=== PATIENT | female | born 1935 | race Caucasian/White ===

== ENCOUNTER 2017-08-10 22:11 | Inpatient (IN) | payer MEDICARE ==
[~2017-08-10] VITALS: Ht 172.7 cm; Wt 89.8 kg
[~2017-08-10 22:11] MED LIST: AMITRIPTYLINE H25 MG PO; BACTRIM DS TAB1 EACH PO; ELAVIL PO; ELIQUIS PO; GLUCOPHAGE500 MG PO; LASIX40 MG PO; METOPROLOL SUCC50 MG PO; MONTELUKAST SOD10 MG PO; NEXIUM20 MG PO; NEXIUM40 MG PO; POTASSIUM CHLO10 ME1 PO; SEREVENT DISKU50 MCG INH; SINGULAIR10 MG PO; SINGULAIR4 MG PO; VERELAN240 MG PO; elavil PO
--- OUTSIDE RECORDS SUMMARY | 2017-08-10 22:13 | XMS REPORT | Clinical Summary ---
Author Author [facility] Organization [facility] Address Unknown Phone Unavailable Care Team Providers [employer] Name Role Phone Mera Ward MD PCP Allergies Active Allergy Reactions Severity Noted Date Comments Codeine Other (See Comments) 07/24/2016 Dizziness .,"was hospitalized after taking codeine" Current Medications Prescription Sig. Disp. Refills Start End Date Status Date amitriptyline (ELAVIL) 25 Take 25 mg by mouth Active MG tablet daily. apixaban (ELIQUIS) 5 mg Take 5 mg by mouth 2 Active tablet (two) times a day. esomeprazole (NexIUM) 40 Take 40 mg by mouth as Active MG capsule needed. furosemide (LASIX) 40 mg Take 40 mg by mouth daily Active tablet as needed (edema). montelukast (SINGULAIR) Take 10 mg by mouth Active 10 mg tablet nightly. potassium chloride Take 20 mEq by mouth as Active (K-DUR,KLOR-CON) 10 MEQ needed (with lasix). CR tablet salmeterol (SEREVENT Inhale 2 puffs daily as Active DISKUS) 50 mcg/dose needed. diskus inhaler metoprolol tartrate Take 1 tablet (25 mg 180 tablet 3 11/29/19 Active (LOPRESSOR) 25 mg tablet total) by mouth 2 (two) 17 times a day. ELIQUIS 5 mg tablet TAKE 1 TABLET BY MOUTH 180 tablet 3 04/04/2002/04 Discontin TWICE DAILY 16 17 ued PROAIR HFA 90 INL 2 PFS PO UTD 0 07/11/19 09/24/19 Discontin mcg/actuation inhaler 17 17 ued amitriptyline (ELAVIL) 25 TK 1 T PO BID 2 07/11/19 09/24/19 Discontin MG tablet 17 17 ued esomeprazole (NexIUM) 40 TK 1 C PO QD 0 07/11/19 09/24/19 Discontin MG capsule 17 17 ued furosemide (LASIX) 40 mg TK 1 T PO QD 0 07/18/19 09/24/19 Discontin tablet 17 17 ued metoprolol tartrate TK 1 T PO Q 12 H 0 07/18/19 09/24/19 Discontin (LOPRESSOR) 50 mg tablet 17 17 ued montelukast (SINGULAIR) TK 1 T PO QPM 0 07/11/19 09/24/19 Discontin 10 mg tablet 17 17 ued potassium chloride TK 2 CS PO QD 0 07/18/19 09/24/19 Discontin (MICRO-K) 10 MEQ CR 17 17 ued capsule VERAPAMIL HCL (VERAPAMIL Take 50 mg by mouth. 09/24/19 Discontin ORAL) Patient has not started 17 ued taking the new dosage because she was told not to cut the 240 mg in half. She did not receive a Rx for the 50 mg. albuterol (PROAIR Inhale 2 puffs every 6 11/09/19 Discontin HFA,PROVENTIL (six) hours as needed for 17 ued HFA,VENTOLIN HFA) 90 wheezing. mcg/actuation inhaler verapamil (CALAN) 120 MG Take 120 mg by mouth 09/27/19 Discontin tablet daily. 17 ued cholecalciferol, vitamin Take 50,000 Units by 11/03/19 Discontin D3, (DECARA) 50,000 unit mouth every 7 days. 17 ued capsule Thursday amIODarone (PACERONE) 400 Take 1 tablet (400 mg 30 tablet 0 09/27/19 10/27/19 MG tablet total) by mouth daily for 17 17 30 days. cefpodoxime (VANTIN) 200 Take 1 tablet (200 mg 20 tablet 0 09/27/19 10/07/19 MG tablet total) by mouth 2 (two) 17 17 times a day for 10 days. metoprolol tartrate Take 1 tablet (25 mg 60 tablet 0 09/27/19 (LOPRESSOR) 25 mg tablet total) by mouth 2 (two) 17 17 times a day for 30 days. verapamil (CALAN) 120 MG Take 120 mg by mouth 11/09/19 Discontin tablet daily. 17 ued metoprolol tartrate Take 25 mg by mouth 2 11/29/19 Discontin (LOPRESSOR) 25 mg tablet (two) times a day. 17 ued amIODarone (PACERONE) 200 Take 1 tablet (200 mg 60 tablet 1 11/09/19 12/09/19 MG tablet total) by mouth every 12 17 17 (twelve) hours for 30 days. benzonatate (TESSALON) Take 1 capsule (100 mg 20 capsule 0 11/09/19 12/09/19 100 MG capsule total) by mouth 3 (three) 17 17 times a day as needed for cough for up to 30 days. guaiFENesin (MUCINEX) 600 Take 2 tablets (1,200 mg 120 tablet 0 12/09/19 mg tablet extended total) by mouth 2 (two) 17 17 release 12hr times a day for 30 days. doxycycline (VIBRAMYCIN) Take 1 capsule (100 mg 8 capsule 0 11/09/19 11/13/19 100 MG capsule total) by mouth 2 (two) 17 17 times a day with meals for 4 days. predniSONE (DELTASONE) 10 Take 4 tabs daily x 3 27 tablet 0 11/09/19 11/17/19 mg tablet days, then 3 tabs daily x 17 17 3 days, then 2 tabs daily x 3 days, then stop. albuterol (PROAIR Inhale 2 puffs every 6 18 g 11 11/09/19 12/09/19 HFA,PROVENTIL (six) hours as needed for 17 17 HFA,VENTOLIN HFA) 90 wheezing for up to 30 mcg/actuation inhaler days. Active Problems Problem Noted Date Pneumonia 11/02/2016 Afib 11/02/2016 History of lymphoma 11/02/2016 GERD (gastroesophageal reflux disease) 11/02/2016 Anemia of chronic disease 11/02/2016 Fever 11/02/2016 Chronic kidney disease, stage III (moderate) 11/02/2016 Chronic systolic heart failure 11/02/2016 Pneumonia of both lungs due to infectious organism 09/23/2016 Encounters Date Type Specialty Care Team Description 11/28/2016 Orders Only Cardiology Sonido Moe MA 11/08/2016 Patient Quality Sofía Padilla RN Outreach 11/02/2016 [facility] Obstetrics and Gynecology Grant Montejo Pneumonia of both lower - Encounter MD Jon lobes due to infectious 11/08/2016 Magaly Villalobos MD organism (Primary Dx) 09/24/2016 Anesthesia Procedural Cardiology Robert Villalobos Event 09/24/2016 Procedure Pass Procedural Cardiology 09/22/2016 [facility] Cardiology CaballeroRoberto, Pneumonia of both lungs - Encounter DO due to infectious 09/26/2016 Charlotte Villalobos MD organism, unspecified part of lung (Primary Dx); Sepsis, due to unspecified organism; Atrial fibrillation with RVR; Mild intermittent asthma with acute exacerbation after 08/09/2016 Family History Medical History Relation Name Comments Heart disease Brother Hypertension Brother Diabetes Mother Heart disease Mother Hypertension Mother Heart disease Sister Hypertension Sister Relation Name Status Comments Brother Mother Sister Social History Tobacco Use Types Packs/Day Years Used Date Never Smoker Smokeless Tobacco: Never Used Tobacco Cessation: Counseling Given: No Alcohol Use Drinks/Week oz/Week Comments No Sex Assigned at Date Recorded Not on file Last Filed Vital Signs Vital Sign Reading Time Taken Blood Pressure 153/68 11/08/2016 3:53 PM CDT Pulse 55 11/08/2016 3:53 PM CDT Temperature 36 C (96.8 F) 11/08/2016 3:53 PM CDT Respiratory Rate 18 11/08/2016 3:53 PM CDT Oxygen Saturation 96% 11/08/2016 3:53 PM CDT Inhaled Oxygen - - Concentration Weight 83.6 kg (184 lb 6.4 oz) 09/26/2016 4:05 AM CDT Height 167.6 cm (5' 6") 11/02/2016 3:43 PM CDT Body Mass Index 30.69 09/26/2016 4:05 AM CDT Plan of Treatment Health Maintenance Due Date Last Done Comments ZOSTER VACCINE 1997 PNEUMOCOCCAL 2002 POLYSACCHARIDE VACCINE AGE 65 AND OVER PNEUMOCOCCAL-13 2002 INFLUENZA VACCINE 12/16/2016 Procedures Procedure Name Priority Date/Time Associated Diagnosis Comments ECHOCARDIOGRAM 2D Routine 11/06/2016 Results for this COMPLETE W MMODE SPECTRAL 10:31 AM CDT procedure are in the COLOR [facility]ER (01310) results section. ECHOCARDIOGRAM 2D Routine 09/23/2016 Results for this COMPLETE W MMODE SPECTRAL 11:24 PM CDT procedure are in the [facility]ER (63159) results section. [place] [facility], E/M Routine 09/23/2016 Results for this 30-74 MINUTES 5:41 AM CDT procedure are in the results section. after 08/09/2016 Results * POC glucose (11/08/2016 12:25 PM) Only the most recent of 9 results within the time period is included. Component Value Ref Range POC glucose 254 (H) 65 - 99 mg/dL Comment: [facility] Notified RN Meter ID: [id number] Screen Maker: Wayne Jason Specimen Performing Laboratory [facility] DEPARTMENT OF PATHOLOGY AND GENOMIC MEDICINE [address] [place], [place] [id number] * Estimated GFR (11/08/2016 4:00 AM) Only the most recent of 12 results within the time period is included. Component Value Ref Range GFR Non Af Amer 36 (A) mL/min/1.73 m2 GFR Af Amer 44 (A) mL/min/1.73 m2 Comment: Chronic kidney disease: <60 mL/min/1.73m2 Kidney failure: <15 mL/min/1.73m2 The estimated GFR is calculated from the IDMS-traceable Modification of Diet in Renal Disease Equation. The accuracy of the calculation is poor when the creatinine is normal. Calculated values >90 mL/min/1.73m2 are not reported. This equation has not been validated in children (<18 years), women, the elderly (>70 years), or ethnic groups other than Caucasians and Americans. Specimen Performing Laboratory Plasma specimen [facility] DEPARTMENT OF PATHOLOGY AND GENOMIC MEDICINE [address] [place] [address] * Basic metabolic panel (11/08/2016 4:00 AM) Only the most recent of 9 results within the time period is included. Component Value Ref Range Sodium 137 135 - 148 mEq/L Potassium 4.8 3.5 - 5.0 mEq/L Chloride 95 (L) 98 - 112 mEq/L CO2 29 24 - 31 mEq/L Anion gap 13 7 - 15 mEq/L Comment: Starting from August , anion gap calculation no longer incorporates potassium. Please note the change. BUN 32 (H) 8 - 23 mg/dL Creatinine 1.4 (H) 0.5 - 0.9 mg/dL Glucose 223 (H) 65 - 99 mg/dL Calcium 8.5 (L) 8.8 - 10.2 mg/dL Specimen Performing Laboratory Plasma specimen [facility] DEPARTMENT OF PATHOLOGY AND [address] [address] * Phosphorus level (11/07/2016 4:25 AM) Only the most recent of 5 results within the time period is included. Component Value Ref Range Phosphorus 3.6 2.4 - 4.5 mg/dL Specimen Performing Laboratory Plasma specimen [facility] DEPARTMENT OF PATHOLOGY AND [address] [address] * B natriuretic peptide (11/07/2016 4:25 AM) Only the most recent of 5 results within the time period is included. Component Value Ref Range BNP 391 (H) 0 - 100 pg/mL Specimen Performing Laboratory Blood [facility] PATHOLOGY AND [address] [address] * Magnesium level (11/07/2016 4:25 AM) Only the most recent of 6 results within the time period is included. Component Value Ref Range Magnesium 1.9 1.6 - 2.4 mg/dL Specimen Performing Laboratory Plasma specimen [facility] PATHOLOGY AND [address] [address] * Hemoglobin A1c (11/07/2016 4:25 AM) Component Value Ref Range Hemoglobin A1C 6.6 (H) 4.0 - 5.6 % Comment: HbA1c cutoffs for diagnosing diabetes: 4.0% - 5.6%=normal 5.7% - 6.4%=increased risk for diabetes (prediabetes) >=6.5%=diabetes Goals for glycemic control (ADA 2016) < 7.0% Target for non adults with diabetes. More or less stringent targets may be appropriate for individual patients. <7.5% Target for Children and adolescents with type 1 diabetes. Specimen Performing Laboratory Blood [facility] PATHOLOGY AND [address] [address] * Hepatic function panel (11/07/2016 4:25 AM) Only the most recent of 2 results within the time period is included. Component Value Ref Range Albumin 2.7 (L) 3.5 - 5.0 g/dL Total bilirubin 0.3 0.0 - 1.2 mg/dL Bilirubin direct <0.2 0.0 - 0.3 mg/dL Alkaline phosphatase 69 35 - 104 U/L Protein 6.1 (L) 6.3 - 8.3 g/dL Comment: 4.6-7.0 g/dL 1 week 4.4-7.6 g/dL 7 months-1year 5.1-7.3 g/dL 1-2 years 5.6-7.5 g/dL >3 years 6.0-8.0 g/dL 18-150 6.3-8.3 g/dL ALT 36 5 - 50 U/L AST 48 (H) 10 - 35 U/L Specimen Performing Laboratory Plasma specimen [facility] DEPARTMENT OF PATHOLOGY AND GENOMIC MEDICINE [address] [place] [address] * XR Chest 1 Vw (11/06/2016 5:25 PM) Specimen Performing Laboratory [facility] [address] [place] [address] Narrative EXAMINATION:XR CHEST 1 VW CLINICAL HISTORY:Cough COMPARISON:11/02/2016 IMPRESSION: 1.The heart size is normal. 2.There is no evidence of pulmonary edema. There are no focal consolidations or effusions. 3.Regional skeletal structures are slightly osteopenic. 4.Status post cholecystectomy. Procedure Note Interface, Radiology Results Incoming - 11/06/2016 6:02 PM CDT EXAMINATION: XR CHEST 1 VW CLINICAL HISTORY: Cough COMPARISON: 11/02/2016 IMPRESSION: 1. The heart size is normal. 2. There is no evidence of pulmonary edema. There are no focal consolidations or effusions. 3. Regional skeletal structures are slightly osteopenic. 4. Status post cholecystectomy. * Echocardiogram complete w contrast and 3D if needed (11/06/2016 10:31 AM) Specimen Performing Laboratory [facility] [address] [place] [address] Narrative Echocardiography Report [address] [place] [address] Pat.Name:CATY FARMER Pat.ID:[id number] .Date: 11/06/2016 Refer.MD:MAGALY VILLALOOBS MD Exam Time: 9:47:00 AMStudy Type:Routine Echo Height:64.96in Weight:184lb BSA: 1.91 m2 DOBAge:[age]Y Sex: FEMALEBP: 138/65 Sonogrphr: BONILLA JARA, RDSHUN, STAN/Adelso Mcdowell MD Pat. Stat.:Inpatient Room:A635Zdxtc Status:Final Echo Event ID:[id number] Order ID:[id number] Reason for Study:HF; initial eval with symptoms Procedures:2D Echo, Colorflow Doppler, Intravenous Definity Contrast Race:C SUMMARY: LV function is normal. Estimated EF is 55-59%. Diastolic dysfunction Grade III (Severe): Impaired relaxation with restrictive LV filling pressures. Mild mitral regurgitation. Mild tricuspid regurgitation. Estimated PA systolic pressure is 49 mmHg, assuming a mean RAP of 5 mmHg. FINDINGS: LV: LV size is normal. LV function is normal. Overall wall motionis normal. EF=55%. RV: RV size is normal. RV function is normal. LA: LA volume is mildly enlarged. RA: RA size is normal. AO: Aortic root diameter is normal. LIU: No pericardial effusion and anterior fat pad is present. AV: No structural AV abnormalities noted. MV: Mild calcification of mitral leaflets. Mild mitral regurgitation. PV: No structural PV abnormalities noted. A trace of pulmonic regurgitation. TV: No structural TV abnormalities noted. Mild tricuspid regurgitation Paul: LV relaxation is impaired. Diastolic dysfunction Grade III (Severe):Impaired relaxation with restrictive LV filling pressures. Other:Estimated PA systolic pressure is 49 mmHg, assuming a mean RAPof 5 mmHg. MEASUREMENTS: 2D Parasternal Long [place] LVOT 2 cmLA Ds 3.6 cm LVIDd5.4 cmIndex 2.8 cm/m Ao An2 cm LVIDs3.9 cmAo Rtd 3.2 cm Index1.7 cm/m LV%fs 28.9 % LV Mass 149.7 g(87-129) IVSd 0.7 cmLVM Index 78.4 g/m2 LVPWd0.9 cmRWT 0.3 LV EF SinglePlane LV Ad 35.4 cm2(9.5-22.3) LV EF 55.4 %(55-75) FNKTX101.4 ml (59-136) Index66.2 ml/m HR54 bpm LV As 21.5 cm2(4-11.6) LV CO 3.8 l/min LVESV 56.4 mlLV CI 2 l/m/m2 LV SV 70 ml LA Sng Plane LA Area 22.9 cm2(8.8-23.4) LA Vol75.3 ml Index39.4 ml/m LA LngAx 5.6 cm RA Sng Plane RA Area 18.2 cm2(8.3-19.5) RA Vol52.6 ml Index27.5 ml/m RA LngAx 5.2 cm DOPPLER LVOT Stroke Vol LVOT 2 cmLVOT CO 3.4 l/min LVOT TVI19.2 cmLVOT CI 1.8 l/m/m2 LVOT Tm371 msecHR 56 bpm LVOT SV 60.3 ml MV PISA MV AliasVel 32 cm/sMV pkVel 547.6 cm/s MV PISA rad0.4 cmMV ERO 0.1 cm2 MV Flw32.2 cc/sMV RgVol 12.7 cc Signed 11/06/2016 03:44 PM David Prasad M.D. Procedure Note Interface, Radiology Results In - 11/06/2016 3:45 PM CDT Echocardiography Report [address] [place] [address] Pat.Name: CATY FARMER.ID: [id number] .Date: 11/06/2016 Refer.MD: MAGALY VILLALOBOS MD Exam Time: 9:47:00 AM Study Type:Routine Echo Height: 64.96in Weight: 184lb BSA: 1.91 m2 Age: 8 1935,81Y Sex: FEMALE BP: 138/65 Sonogrphr: WENDI QUINTEROS, RCS, RDCS, [facility]/Adelso Mcdowell MD Pat. Stat.:Inpatient Room: M632 Study Status:Final Echo Event ID:[id number] Order ID: [id number] Reason for Study:HF; initial eval with symptoms Procedures:2D Echo, Colorflow Doppler, Intravenous Definity Contrast Race: C SUMMARY: LV function is normal. Estimated EF is 55-59%. Diastolic dysfunction Grade III (Severe): Impaired relaxation with restrictive LV filling pressures. Mild mitral regurgitation. Mild tricuspid regurgitation. Estimated PA systolic pressure is 49 mmHg, assuming a mean RAP of 5 mmHg. FINDINGS: LV: LV size is normal. LV function is normal. Overall wall motion is normal. EF=55%. RV: RV size is normal. RV function is normal. LA: LA volume is mildly enlarged. RA: RA size is normal. AO: Aortic root diameter is normal. LIU: No pericardial effusion and anterior fat pad is present. AV: No structural AV abnormalities noted. MV: Mild calcification of mitral leaflets. Mild mitral regurgitation. PV: No structural PV abnormalities noted. A trace of pulmonic regurgitation. TV: No structural TV abnormalities noted. Mild tricuspid regurgitation Paul: LV relaxation is impaired. Diastolic dysfunction Grade III (Severe): Impaired relaxation with restrictive LV filling pressures. Other: Estimated PA systolic pressure is 49 mmHg, assuming a mean RAP of 5 mmHg. MEASUREMENTS: 2D Parasternal Long [place] LVOT 2 cm LA Ds 3.6 cm LVIDd 5.4 cm Index 2.8 cm/m Ao An 2 cm LVIDs 3.9 cm Ao Rtd 3.2 cm Index 1.7 cm/m LV%fs 28.9 % LV Mass 149.7 g (87-129) IVSd 0.7 cm LVM Index 78.4 g/m2 LVPWd 0.9 cm RWT 0.3 LV EF SinglePlane LV Ad 35.4 cm2 (9.5-22.3) LV EF 55.4 % (55-75) LVEDV 126.4 ml (59-136) Index 66.2 ml/m HR 54 bpm LV As 21.5 cm2 (4-11.6) LV CO 3.8 l/min LVESV 56.4 ml LV CI 2 l/m/m2 LV SV 70 ml LA Sng Plane LA Area 22.9 cm2 (8.8-23.4) LA Vol 75.3 ml Index 39.4 ml/m LA LngAx 5.6 cm RA Sng Plane RA Area 18.2 cm2 (8.3-19.5) RA Vol 52.6 ml Index 27.5 ml/m RA LngAx 5.2 cm DOPPLER LVOT Stroke Vol LVOT 2 cm LVOT CO 3.4 l/min LVOT TVI 19.2 cm LVOT CI 1.8 l/m/m2 LVOT Tm 371 msec HR 56 bpm LVOT SV 60.3 ml MV PISA MV AliasVel 32 cm/s MV pkVel 547.6 cm/s MV PISA rad 0.4 cm MV ERO 0.1 cm2 MV Flw 32.2 cc/s MV RgVol 12.7 cc Signed 11/06/2016 03:44 PM David Prasad M.D. * US Renal (11/05/2016 9:22 AM) Specimen Performing Laboratory [address] [address] Narrative EXAM: RENAL CLINICAL DATA:HYDRONEPHROSIS, does not need to drink water prior to exam COMPARISON: NONE. FINDINGS: 1.Right kidney is 9.7 x 4.5 x 3.5 cm. Renal cortex is 0.9 cm. No mass or hydronephrosis. Probable prominent extrarenal pelvis. 2.Left kidney is 10.6 x 4.8 x 4.6 cm. Renal cortex is 1 cm. No mass or hydronephrosis. Nephrolithiasis noted in the lower pole. 3.Bladder is unremarkable. IMPRESSION: 1. Renal ultrasound findings as above. [facility]-[id number] Procedure Note Hm Interface, Radiology Results Incoming - 11/05/2016 11:05 AM CDT EXAM: US RENAL CLINICAL DATA: HYDRONEPHROSIS, does not need to drink water prior to exam COMPARISON: NONE. FINDINGS: 1. Right kidney is 9.7 x 4.5 x 3.5 cm. Renal cortex is 0.9 cm. No mass or hydronephrosis. Probable prominent extrarenal pelvis. 2. Left kidney is 10.6 x 4.8 x 4.6 cm. Renal cortex is 1 cm. No mass or hydronephrosis. Nephrolithiasis noted in the lower pole. 3. Bladder is unremarkable. IMPRESSION: 1. Renal ultrasound findings as above. [facility]-[id number] * Angiotensin converting enzyme (11/05/2016 7:01 AM) Component Value Ref Range Angiotensin converting 44 9 - 67 U/L enzyme Comment: Performed by [facility], [address] [place] [id number] [email or web address] Harpal Grigsby MD - Lab. Director Specimen Performing Laboratory Serum [facility] [address] [place] [address] * Urinalysis screen and microscopy, with reflex to culture (11/05/2016 6:30 AM) Only the most recent of 2 results within the time period is included. Component Value Ref Range Specimen site Clean catch Color, UA Yellow Appearance, UA Clear Specific gravity, UA 1.025 1.001 - 1.035 pH, UA 5.0 5.0 - 8.5 Protein, UA Negative Negative Glucose, UA 3+ (A) Negative Ketones, UA Negative Negative Bilirubin, UA Negative Negative Blood, UA Negative Negative Nitrite, UA Negative Negative Urobilinogen, UA <2.0 <2.0 Leukocyte esterase, UA Negative Negative Epithelial cells, UA 1 /HPF WBC, UA <1 0 - 4 /HPF RBC, UA <1 0 - 2 /HPF Bacteria, UA Few None seen Yeast, UA Few (A) Yeast with pseudohyphae, None seen UA Hyaline casts, UA 1 /LPF Specimen Performing Laboratory Urine [facility] DEPARTMENT OF PATHOLOGY AND [facility] [address] [place] [address] * Protein, urine, random (11/05/2016 6:30 AM) Component Value Ref Range Protein, urine random 36 mg/dL Specimen Performing Laboratory Urine [facility] DEPARTMENT OF PATHOLOGY AND [facility] [address] [place] [address] * Osmolality, urine (11/05/2016 6:30 AM) Component Value Ref Range Osmolality, urine 650 50 - 1,400 mOsm/kg Specimen Performing Laboratory Urine [facility] DEPARTMENT OF PATHOLOGY AND [address] [address] * Creatinine level, urine, random (11/05/2016 6:30 AM) Component Value Ref Range Creatinine, urine, random 137 mg/dL Specimen Performing Laboratory Urine [facility] [place] [address] * Urine culture (11/05/2016 6:30 AM) Only the most recent of 2 results within the time period is included. Component Value Ref Range Urine culture SEE COMMENTComment: Bacteriuria screen negative. Specimen Performing Laboratory [facility] DEPARTMENT OF PATHOLOGY AND [address] [address] * Total iron binding capacity (11/05/2016 5:05 AM) Component Value Ref Range Iron level 54 37 - 145 ug/dL Iron binding capacity 209 200 - 400 ug/dL % Saturation 25.8 15.0 - 38.0 % Specimen Performing Laboratory Plasma specimen [facility] [address] * Immunofixation, serum (11/05/2016 5:05 AM) Component Value Ref Range Immunofixation, serum SEE COMMENTComment: See electrophoresis report below. Specimen Performing Laboratory Serum [facility] [address] [address] * Vitamin D 25 hydroxy level (11/05/2016 5:05 AM) Component Value Ref Range Vitamin D, 25-hydroxy 43.0 30.0 - 150.0 ng/mL Comment: This assay reports the sum of 25-hydroxy vitamin D3 and 25-hydroxy vitamin D2. Reference range: 0-17 years: Deficiency: less than 20ng/mL Optimum level: greater than or equal to 20 ng/mL. 18 years and older: Deficiency: less than 20ng/mL Insufficiency: 20-29 ng/mL Optimum Level: 30-80 ng/mL The assay reportable range is 3.4 155.9 ng/mL. Levels higher than 150 ng/mL may be associated with toxicity. If toxicity is clinically suspected and the reported result is >155.9 ng/mL,contact lab for alternative methods to obtain a definitive level. If separate quantitation of 25-hydroxy vitamin D3 and 25-hydroxy vitamin D2 is needed, please contact lab for alternative methods. Specimen Performing Laboratory Blood [facility] DEPARTMENT OF PATHOLOGY AND GENOMIC MEDICINE [address] [place] [address] * Reticulocyte count (11/05/2016 5:05 AM) Component Value Ref Range Retic %, auto 1.5 0.5 - 2.1 % Retic absolute, auto 0.0502 0.0210 - 0.1155 m/uL Specimen Performing Laboratory [facility] DEPARTMENT OF PATHOLOGY AND GENOMIC MEDICINE [address] [place] [address] * CBC with platelet and differential (11/05/2016 5:05 AM) Only the most recent of 9 results within the time period is included. Component Value Ref Range WBC 4.54 4.50 - 11.00 k/uL RBC 3.37 (L) 4.20 - 5.50 m/uL HGB 10.6 (L) 12.0 - 16.0 g/dL HCT 33.1 (L) 37.0 - 47.0 % MCV 98.2 82.0 - 100.0 fL MCH 31.5 27.0 - 34.0 pg MCHC 32.0 31.0 - 37.0 g/dL RDW - SD 50.6 37.0 - 55.0 fL MPV 9.9 8.8 - 13.2 fL Platelet count 189 150 - 400 k/uL Nucleated RBC 0.00 /100 WBC Neutrophils 84.1 (H) 39.0 - 69.0 % Lymphocytes 10.4 (L) 25.0 - 45.0 % Monocytes 4.6 0.0 - 10.0 % Eosinophils 0.0 0.0 - 5.0 % Basophils 0.2 0.0 - 1.0 % Immature granulocytes 0.7Comment: "Immature granulocytes" 0.0 - 1.0 % (promyelocytes, myelocytes, metamyelocytes) Specimen Performing Laboratory Blood [facility] DEPARTMENT OF PATHOLOGY AND GENOMIC MEDICINE [address] [place] [address] * Serum electrophoresis (11/05/2016 5:05 AM) Component Value Ref Range Protein 6.1 (L) 6.3 - 8.3 g/dL Comment: 4.6-7.0 g/dL 1 week 4.4-7.6 g/dL 7 months-1year 5.1-7.3 g/dL 1-2 years 5.6-7.5 g/dL >3 years 6.0-8.0 g/dL 18-150 6.3-8.3 g/dL SPE albumin 3.51 (L) 4.00 - 5.30 g/dL SPE alpha 1 0.23 0.10 - 0.25 g/dL SPE alpha 2 0.77 0.58 - 0.84 g/dL SPE beta 0.75 0.50 - 1.10 g/dL SPE gamma 0.84 0.60 - 1.30 g/dL SPE extended See Comment interpretation Comment: Abnormal serum protein study due to the presence of a faint band in the gamma region that immunofixes as monoclonal IgM Lambda. This band is present at low concentration below quantitation limits. Uninvolved gamma globulins are not decreased in the background of an acute phase response. 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 SPE interpretation See CommentComment: Raúl Lemos MD; Na Genao, PhD; Dayne Schroeder MD, PhD Specimen Performing Laboratory Serum [facility] DEPARTMENT OF PATHOLOGY AND GENOMIC MEDICINE [address] [place] [id number] * Ferritin level (11/05/2016 5:05 AM) Component Value Ref Range Ferritin level 201 (H) 13 - 150 ng/mL Specimen Performing Laboratory Plasma specimen [facility] DEPARTMENT OF PATHOLOGY AND GENOMIC MEDICINE [address] [place] [id number] * Vitamin B12 level (11/05/2016 5:05 AM) Component Value Ref Range Vitamin B12 438 211 - 946 pg/mL Comment: Significant overlap exists between normal and deficiency states. However, most patients with deficiencies will have Serum B12 <200 pg/mL. Specimen Performing Laboratory Serum [facility] DEPARTMENT OF PATHOLOGY AND GENOMIC MEDICINE [address] [place] [address] * Vancomycin level, random (11/04/2016 10:00 PM) Component Value Ref Range Vancomycin, random 9.0 ug/mL Specimen Performing Laboratory Serum [facility] DEPARTMENT OF PATHOLOGY AND [facility]IC[facility] [address] [place] [address] * LDH (11/04/2016 4:36 AM) Only the most recent of 2 results within the time period is included. Component Value Ref Range LDH 134 87 - 225 U/L Specimen Performing Laboratory Plasma specimen [facility] DEPARTMENT OF [place] [address] * Streptococcus pneumoniae urinary antigen (11/03/2016 4:49 PM) Component Value Ref Range Strep pneumo urinary Ag Negative for Streptococcus pneumoniae antigen. Comment: Specimen Information Specimen Source: Urine Specimen Site: Random void Specimen Performing Laboratory Urine - Random void [facility] [place] [address] * Legionella urinary antigen (11/03/2016 4:49 PM) Component Value Ref Range Legionella urinary Negative for Legionella serogroup 1 antigen. antigen Comment: Specimen Information Specimen Source: Urine Specimen Site: Random void Specimen Performing Laboratory Urine - Random void [facility] DEPARTMENT OF PATHOLOGY AND [facility] [address] [place] [address] * ECG 12 lead (11/03/2016 1:11 PM) Only the most recent of 5 results within the time period is included. Component Value Ref Range Ventricular rate 133 Atrial rate 133 QRSD interval 110 QT interval 354 QTC interval 526 QRS axis 1 68 T wave axis -38 EKG impression Sinus tachycardia with short [place]-Low voltage QRS-Nonspecific ST and T wave abnormality-Prolonged QT-Abnormal ECG-In automated comparison with ECG of 02-NOV-2016 16:00,-KY interval has decreased-ST now depressed in Inferior leads- Specimen Performing Laboratory [facility] M[facility] [address] [place] [address] * Sputum culture (11/03/2016 12:40 PM) Component Value Ref Range Sputum culture isolate Normal oral brandee isolated. Comment: Specimen Information Specimen Source: Sputum Specimen Site: Expectorated Specimen Performing Laboratory Sputum - Expectorated [facility] DEPARTMENT OF PATHOLOGY AND [facility] [address] [place] [address] * Gram stain (11/03/2016 12:40 PM) Component Value Ref Range Gram stain isolate Many WBC's Few Gram positive rods Comment: Specimen Information Specimen Source: Sputum Specimen Site: Expectorated Specimen Performing Laboratory Sputum - Expectorated [facility] DEPARTMENT OF PATHOLOGY AND GENOMIC MEDICINE [address] [place] [id number] * CT Chest Wo Contrast Abdomen Wo Contrast Pelvis Wo Contrast (11/03/2016 11:10 AM) Specimen Performing Laboratory [facility] [address] [place] [address] Narrative EXAMINATION:CT CHEST WO CONTRAST ABDOMEN WO CONTRAST PELVIS WO CONTRAST History: repeat CT for GGOpalpable mass or lump in lower abdomen COMPARISON: September 24, 2016 TECHNIQUE: Multiple axial CT images of the chest performed Without IV contrast.. Coronal and sagittal reconstructions were done. CT imaging was performed with iterative reconstruction technique and/or automated exposure control to reduce radiation dose. FINDINGS: LUNGS: The patchy groundglass opacity in the right lung apex and left upper lobe have resolved. However, there is appearance of mixed nodular density and ground loss opacities scattered in both lungs measuring up to 6 mm. There is also some scattered tree-in-bud opacities bilaterally. The focal consolidation with bronchiectasis in the lingular stable. No pneumothorax or pleural effusion. Especially in the lower lobes are stable. Previous consolidation in the left lung base focally is stable AIRWAYS: No central endobronchial or endotracheal lesions are seen. Some diffuse mild bronchiolar wall thickening is present. Mild bronchiolectasis MEDIASTINUM: Small mediastinal lymph nodes are stable measuring up to 8 mm. No enlarging hilar lymph nodes are seen. The thoracic aorta is without aneurysm. Pulmonary is mildly artery is not dilated. Heart is enlarged atherosclerotic ossification of the coronary arteries. No significant pericardial effusion is present. The esophagus is unremarkable. BONES AND OVERLYING SOFT TISSUES: The visualized bones are without destructive lesions. No enlarged axillary lymph nodes present. VISUALIZED LOWER NECK : No acute abnormality. IMPRESSION: Some of the groundglass opacities have resolved, there is appearance of new nodular and ground loss opacities in both lungs along with some bronchitis and bronchiolitis likely due to infection or inflammation. COMPARISON:February 11, 2002 TECHNIQUE: Multiple axial CT images of the Abdomen and pelviswere obtainedWithout IV contrast limiting evaluation Oral contrast was administered. sagittal and coronal reconstructions were done. CT imaging was performed with iterative reconstruction technique and/or automated exposure control to reduce radiation dose. FINDINGS: HEPATOBILIARY:No focal hepatic lesions. No biliary ductal dilation. GALLBLADDER: Absent SPLEEN:No splenomegaly. PANCREAS:No focal masses or ductal dilation. ADRENALS:No adrenal nodules. KIDNEYS:2 mm punctate stones present in both kidneys and are nonobstructing. There is no hydronephrosis bilaterally. PERITONEUM/RETROPERITONEUM:No free air or fluid. No lymphadenopathy. ABDOMINAL AORTA/IVC: No aneurysm or dissection. GI TRACT:Multiple colonic diverticula present without signs of diverticulitis. No bowel distention to suggest bowel obstruction. No signs of pneumatosis or bowel wall thickening. The appendix is normal. PELVIC ORGANS/BLADDER:The urinary bladder is fluid-filled. Uterus is absent. Ovaries may still be present and are small.. BONES AND SOFT TISSUES:Bones are without destructive lesions. Overlying soft tissues without mass. There may be some scarring or prior fat necrosis in the right lower quadrant of the anterior abdomen measuring 1.6 cm. IMPRESSION: No mass or adenopathy. [id number] Procedure Note Hm Interface, Radiology Results Incoming - 11/03/2016 12:16 PM CDT EXAMINATION: CT CHEST WO CONTRAST ABDOMEN WO CONTRAST PELVIS WO CONTRAST History: repeat CT for GGO palpable mass or lump in lower abdomen COMPARISON: September 24, 2016 TECHNIQUE: Multiple axial CT images of the chest performed Without IV contrast.. Coronal and sagittal reconstructions were done. CT imaging was performed with iterative reconstruction technique and/or automated exposure control to reduce radiation dose. FINDINGS: LUNGS: The patchy groundglass opacity in the right lung apex and left upper lobe have resolved. However, there is appearance of mixed nodular density and ground loss opacities scattered in both lungs measuring up to 6 mm. There is also some scattered tree-in-bud opacities bilaterally. The focal consolidation with bronchiectasis in the lingular stable. No pneumothorax or pleural effusion. Especially in the lower lobes are stable. Previous consolidation in the left lung base focally is stable AIRWAYS: No central endobronchial or endotracheal lesions are seen. Some diffuse mild bronchiolar wall thickening is present. Mild bronchiolectasis MEDIASTINUM: Small mediastinal lymph nodes are stable measuring up to 8 mm. No enlarging hilar lymph nodes are seen. The thoracic aorta is without aneurysm. Pulmonary is mildly artery is not dilated. Heart is enlarged atherosclerotic ossification of the coronary arteries. No significant pericardial effusion is present. The esophagus is unremarkable. BONES AND OVERLYING SOFT TISSUES: The visualized bones are without destructive lesions. No enlarged axillary lymph nodes present. VISUALIZED LOWER NECK : No acute abnormality. IMPRESSION: Some of the groundglass opacities have resolved, there is appearance of new nodular and ground loss opacities in both lungs along with some bronchitis and bronchiolitis likely due to infection or inflammation. COMPARISON: February 11, 2002 TECHNIQUE: Multiple axial CT images of the Abdomen and pelviswere obtainedWithout IV contrast limiting evaluation Oral contrast was administered. sagittal and coronal reconstructions were done. CT imaging was performed with iterative reconstruction technique and/or automated exposure control to reduce radiation dose. FINDINGS: HEPATOBILIARY: No focal hepatic lesions. No biliary ductal dilation. GALLBLADDER: Absent SPLEEN: No splenomegaly. PANCREAS: No focal masses or ductal dilation. ADRENALS: No adrenal nodules. KIDNEYS: 2 mm punctate stones present in both kidneys and are nonobstructing. There is no hydronephrosis bilaterally. PERITONEUM/RETROPERITONEUM: No free air or fluid. No lymphadenopathy. ABDOMINAL AORTA/IVC: No aneurysm or dissection. GI TRACT: Multiple colonic diverticula present without signs of diverticulitis. No bowel distention to suggest bowel obstruction. No signs of pneumatosis or bowel wall thickening. The appendix is normal. PELVIC ORGANS/BLADDER: The urinary bladder is fluid-filled. Uterus is absent. Ovaries may still be present and are small.. BONES AND SOFT TISSUES: Bones are without destructive lesions. Overlying soft tissues without mass. There may be some scarring or prior fat necrosis in the right lower quadrant of the anterior abdomen measuring 1.6 cm. IMPRESSION: No mass or adenopathy. [id number] * Aspergillus Ab by CF, serum (11/03/2016 7:51 AM) Component Value Ref Range Aspergillus Ab CF <1:8 <1:8 Comment: INTERPRETIVE INFORMATION: Aspergillus Antibody by Complement Fixation (CF) Cross-reactions with dimorphic fungi are not unusual within the genus Aspergillus. A negative test does not exclude infection, especially in immuno- compromised patients. Best use of test is with paired sera taken three weeks apart to detect a rise in titer against a single antigen. Performed by [facility], [address] [place] [id number] [email or web address], Harpal Grigsby MD - Lab. Director Specimen Performing Laboratory Serum [address] [address] * IgG subclasses (11/03/2016 7:51 AM) Component Value Ref Range Immunoglobulin G subclass 688 240 - 1,118 mg/dL 1 Comment: REFERENCE INTERVAL: Immunoglobulin G Subclass 1 Access complete set of age- and/or gender-specific reference intervals for this test in the [facility] Test Directory ([facility]). Immunoglobulin G subclass 346 124 - 549 mg/dL 2 Comment: REFERENCE INTERVAL: Immunoglobulin G Subclass 2 Access complete set of age- and/or gender-specific reference intervals for this test in the [facility] Test Directory ([facility]). Immunoglobulin G subclass 120 21 - 134 mg/dL 3 Comment: REFERENCE INTERVAL: Immunoglobulin G Subclass 3 Access complete set of age- and/or gender-specific reference intervals for this test in the [facility] Test Directory ([facility]). Immunoglobulin G subclass 36 1 - 123 mg/dL 4 Comment: The total IgG (mg/dL) can be derived by the sum of the subclasses IgG1, IgG2, IgG3 and IgG4 values. However, a confirmatory and more precise total IgG is available by the nephelometric method of total IgG (Test # [id number]). REFERENCE INTERVAL: Immunoglobulin G Subclass 4 Access complete set of age- and/or gender-specific reference intervals for this test in the [facility] Test Directory ([facility]). Performed by [facility] [address] [email or web address], Harpal Grigsby MD - Lab. Director Specimen Performing Laboratory Serum [address] [address] * Immunoglobulin A (11/03/2016 7:51 AM) Component Value Ref Range IgA 218 70 - 400 mg/dL Specimen Performing Laboratory Plasma specimen [facility] DEPARTMENT OF PATHOLOGY AND GENOMIC MEDICINE [address] [place] [address] * Immunoglobulin M (11/03/2016 7:51 AM) Component Value Ref Range IgM 64 33 - 255 mg/dL Specimen Performing Laboratory Plasma specimen [facility] DEPARTMENT OF PATHOLOGY AND GENOMIC MEDICINE [address] [place] [address] * Respiratory pathogen panel (11/03/2016 1:25 AM) Only the most recent of 2 results within the time period is included. Component Value Ref Range Respiratory pathogen Negative for all pathogens tested: panel Negative for Adenovirus Negative for Coronavirus HKU1 Negative for Coronavirus NL63 Negative for Coronavirus 229E Negative for Coronavirus OC43 Negative for Human Metapneumovirus Negative for Rhinovirus/Enterovirus Negative for Influenza A Negative for Influenza A/H1 Negative for Influenza A/H3 Negative for Influenza A/H1-2009 Negative for Influenza B Negative for Parainfluenza Virus 1 Negative for Parainfluenza Virus 2 Negative for Parainfluenza Virus 3 Negative for Parainfluenza Virus 4 Negative for Respiratory Syncytial Virus Negative for Bordetella pertussis Negative for Chlamydophila pneumoniae Negative for Mycoplasma pneumoniae This real-time PCR assay detects the presence of nucleic acids (RNA or DNA) for the respiratory pathogens listed. A result of "Not-detected" does not exclude the possibility of the presence of one or more pathogens at concentrations less than the detectable limits of the assay. Comment: Specimen Information Specimen Source: Nares Specimen Site: Left Specimen Performing Laboratory Nares - Left [facility] DEPARTMENT OF PATHOLOGY AND GENOMIC MEDICINE [address] [place] [address] * Blood culture, aerobic & anaerobic (11/02/2016 9:55 PM) Only the most recent of 4 results within the time period is included. Component Value Ref Range Blood culture isolate No growth after 5 days of incubation. Comment: Specimen Information Specimen Source: Blood Specimen Site: Hand, digit right Specimen Performing Laboratory Blood - Hand, digit right [facility] DEPARTMENT OF PATHOLOGY AND GENOMIC MEDICINE [address] [place] [address] * Troponin (11/02/2016 8:30 PM) Only the most recent of 6 results within the time period is included. Component Value Ref Range Troponin <0.30 0.00 - 0.30 ng/mL Comment: 0.30 - 1.49 ng/ml May indicate increased risk of acute coronary syndrome. >=1.5 ng/ml Consistent with acute myocardial infarction. The diagnostic value of a single normal or non-diagnostic result is questionable. Serial samples at 2-6 hour intervals are required to rule out acute myocardial injury. Specimen Performing Laboratory Plasma specimen [facility] DEPARTMENT OF PATHOLOGY AND GENOMIC MEDICINE [address] [place] [address] * XR Chest 1 Vw Portable (11/02/2016 5:50 PM) Only the most recent of 2 results within the time period is included. Specimen Performing [facility] [address] [place] [address] Narrative EXAMINATION:XR CHEST 1 VW PORTABLE CLINICAL HISTORY:Cough COMPARISON:09/22/2016 IMPRESSION: Heart and mediastinum are stable. Low lung volumes, with mild left basilar patchy opacities and no definite new consolidations. [facility]-[id number] Procedure Note Hm Interface, Radiology Results Incoming - 11/02/2016 6:00 PM CDT EXAMINATION: XR CHEST 1 VW PORTABLE CLINICAL HISTORY: Cough COMPARISON: 09/22/2016 IMPRESSION: Heart and mediastinum are stable. Low lung volumes, with mild left basilar patchy opacities and no definite new consolidations. [facility]-[id number] * Partial thromboplastin time, activated (11/02/2016 4:20 PM) Only the most recent of 2 results within the time period is included. Component Value Ref Range PTT 34.2 23.0 - 36.0 sec Comment: PTT therapeutic range for unfractionated heparin is 61.0-112.0 seconds which corresponds to Anti-Xa 0.3-0.7 U/ml. Specimen Performing Laboratory Blood [facility] DEPARTMENT OF PATHOLOGY AND GENOMIC MEDICINE [address] [place] [address] * Prothrombin time with INR (11/02/2016 4:20 PM) Only the most recent of 2 results within the time period is included. Component Value Ref Range Prothrombin time 19.8 (H) 12.0 - 15.0 sec INR 1.7 Comment: The International Normalized Ratio (INR) is a therapeutic monitoring tool for patients who are stable on oral anticoagulant therapy. An INR of 2.0-3.0 is suggested for deep vein thrombosis/pulmonary embolism. Specimen Performing Laboratory Blood [facility] DEPARTMENT OF PATHOLOGY AND GENOMIC MEDICINE [address] [place] [address] * Creatine kinase, total (CPK) (11/02/2016 4:20 PM) Component Value Ref Range Creatine kinase 45 26 - 192 U/L Specimen Performing Laboratory Plasma specimen [facility] DEPARTMENT OF PATHOLOGY AND GENOMIC MEDICINE [address] [place] [address] * Comprehensive metabolic panel (11/02/2016 4:20 PM) Only the most recent of 3 results within the time period is included. Component Value Ref Range Sodium 134 (L) 135 - 148 mEq/L Potassium 3.6 3.5 - 5.0 mEq/L Chloride 95 (L) 98 - 112 mEq/L CO2 23 (L) 24 - 31 mEq/L Anion gap 16 (H) 7 - 15 mEq/L Comment: Starting from August , anion gap calculation no longer incorporates potassium. Please note the change. BUN 11 8 - 23 mg/dL Creatinine 1.1 (H) 0.5 - 0.9 mg/dL Glucose 156 (H) 65 - 99 mg/dL Calcium 8.2 (L) 8.8 - 10.2 mg/dL Protein 6.8 6.3 - 8.3 g/dL Comment: [place] 4.6-7.0 g/dL 1 week 4.4-7.6 g/dL 7 months-1year 5.1-7.3 g/dL 1-2 years 5.6-7.5 g/dL >3 years 6.0-8.0 g/dL 18-150 6.3-8.3 g/dL Albumin 3.1 (L) 3.5 - 5.0 g/dL A/G ratio 0.8 0.7 - 3.8 Alkaline phosphatase 71 35 - 104 U/L AST 20 10 - 35 U/L ALT 16 5 - 50 U/L Total bilirubin 0.7 0.0 - 1.2 mg/dL Specimen Performing Laboratory Plasma specimen [facility] DEPARTMENT OF [place] [address] * Vancomycin level, trough (09/26/2016 11:00 AM) Component Value Ref Range Vancomycin, trough 8.6 (L) 10.0 - 20.0 ug/mL Comment: Therapeutic Ranges: Peak 30.0 - 40.0 ug/mL Trough 10.0 - 20.0 ug/mL Specimen Performing Laboratory Serum [facility] DEPARTMENT OF PATHOLOGY AND [facility] [address] [place], [place] [id number] * CT Chest W Contrast (09/24/2016 3:37 PM) Specimen Performing Laboratory [place] [id number] Narrative EXAMINATION:CT CHEST W CONTRAST CLINICAL HISTORY:feverpneumonia TECHNIQUE:Multiple axial images of the chest were obtained following intravenous administration of iodinated contrast. Sagittal and coronal computerized reformatted images were also obtained. CT scans are performed using radiation dose reduction techniques. Technical factors are evaluated and adjusted to ensure appropriate moderation of exposure. Automated dose management technology is applied to adjust radiation exposure while achieving a diagnostic quality image. COMPARISON:None. IMPRESSION: 1.Nonspecific subcentimeter mediastinal lymph nodes are favored reactive. Thoracic aorta is normal in caliber. The heart is upper limits normal in size. There is no pericardial effusion. Extensive coronary calcifications are seen involving all 3 vascular territories. 2.Limited evaluation of the upper abdomen demonstrates postcholecystectomy changes. 3.Mild patchy ground glass opacities bilaterally with more confluent airspace disease at the left lung base compatible with pneumonia in the acute setting. Mild dependent material seen in the right main bronchus; correlate for aspiration. Mild focal area of bronchiectasis in the lingula; likely related to prior insult. 4.No suspicious osseous lesions. [facility]-[id number] Procedure Note [facility], Radiology Results Incoming - 09/25/2016 5:19 PM CDT EXAMINATION: CT CHEST W CONTRAST CLINICAL HISTORY: fever pneumonia TECHNIQUE: Multiple axial images of the chest were obtained following intravenous administration of iodinated contrast. Sagittal and coronal computerized reformatted images were also obtained. CT scans are performed using radiation dose reduction techniques. Technical factors are evaluated and adjusted to ensure appropriate moderation of exposure. Automated dose management technology is applied to adjust radiation exposure while achieving a diagnostic quality image. COMPARISON: None. IMPRESSION: 1.Nonspecific subcentimeter mediastinal lymph nodes are favored reactive. Thoracic aorta is normal in caliber. The heart is upper limits normal in size. There is no pericardial effusion. Extensive coronary calcifications are seen involving all 3 vascular territories. 2.Limited evaluation of the upper abdomen demonstrates postcholecystectomy changes. 3.Mild patchy ground glass opacities bilaterally with more confluent airspace disease at the left lung base compatible with pneumonia in the acute setting. Mild dependent material seen in the right main bronchus; correlate for aspiration. Mild focal area of bronchiectasis in the lingula; likely related to prior insult. 4.No suspicious osseous lesions. [facility]-[id number] * Thyroid stimulating hormone (09/24/2016 10:50 AM) Only the most recent of 2 results within the time period is included. Component Value Ref Range TSH 2.75 0.27 - 4.20 uIU/mL Specimen Performing Laboratory Plasma specimen [facility] DEPARTMENT OF PATHOLOGY AND GENOMIC MEDICINE [address] [place] [address] * Digoxin level (09/24/2016 4:40 AM) Component Value Ref Range Digoxin 1.4 0.8 - 2.0 ng/mL Comment: For valid Digoxin results, at least 6 hours should elapse between time of last dose and collection of blood. Otherwise, result may be false high. Therapeutic Range: 0.8 - 2.0 ng/mL Specimen Performing Laboratory Plasma specimen [facility] DEPARTMENT OF PATHOLOGY AND GENOMIC MEDICINE [address] [place] [address] * Lipid panel (09/24/2016 4:40 AM) Component Value Ref Range Cholesterol 128 <200 mg/dL Triglycerides 81 <150 mg/dL HDL cholesterol 45 >40 mg/dL LDL cholesterol 68Comment: Result obtained by direct LDL <100 mg/dL measurement Lipid panel SeeBelow interpretation Comment: Total Cholesterol (mg/dL) <200 Desirable 200-239 Borderline-high >=240 High Triglycerides (mg/dL) <150 Normal 150-199 Borderline-high 200-499 High >=500 Very high HDL Cholesterol (mg/dL) <40 Low (male) <40 Low (female) LDL Cholesterol (mg/dL) <100 Optimal 100-129 Near or above optimal 130-159 Borderline-high 160-189 High >=190 Very high Risk Catergories that modify LDL goals. Risk Catergories LDL goal (mg/dL) CHD and CHD risk equivalent <100 (10-year risk >20%) Multiple (2+) risk factors <130 (10-year risk=<20%) 0-1 risk factors <160 (<10-year risk) Defining levels of lipids in metabolic syndrome Triglycerides >=150 mg/dL HDL Cholesterol Men <40 mg/dL Women <40 mg/dL Non-HDL cholesterol is a second target for therapy in persons with high triglycerides (>=200 mg/dL) Specimen Performing Laboratory Plasma specimen [facility] DEPARTMENT OF PATHOLOGY AND GENOMIC MEDICINE [address] [place] [address] * Echocardiogram complete w contrast and 3D if needed (09/23/2016 11:24 PM) Specimen Performing Laboratory [facility] [address] [place] [address] Narrative Echocardiography Report [address] [place] [address] Pat.Name:CATY FARMER Pat.ID:[id number] .Date: 09/23/2016 Refer.MD:VILLALOBOSCHARLOTTE RAWLS MD Exam Time: 9:41:00 PMStudy Type:Routine Echo Height:165cm Weight:86.5kg BSA: 1.94 m2 DOBAge:1934,81Y Sex: FEMALEBP: 118/59 HR:98 bpmSonogrphr: Sony Kennedy SHUN Pat. Stat.:Inpatient Room:[address] Study Status:Final Echo Event ID:[id number] Order ID:[id number] Reason for Study:AFib Procedures:2D Echo, Colorflow Doppler, Intravenous Definity Contrast Race:C FINDINGS: LV: LV size is normal. There is mild concentric LV hypertrophy. LVfunction is mildly depressed. Global hypokinesis. EstimatedEF is variable between 30-50% depending on the R-Rinterval. RV: RV size is normal. RV function is also variable likely mildlydepressed. LA: LA volume is moderately enlarged. RA: RA volume is mildly enlarged. AO: Aortic root diameter is normal. LIU: Small anterior pericardial effusion. SVn:Normal collapse of IVC during inspiration is consistent with normalRA pressure. AV: No structural AV abnormalities noted. MV: Mild mitral annular calcification. A trace of mitral regurgitation. PV: No structural PV abnormalities noted. TV: No structural TV abnormalities noted. Other:Insufficient TR jet to estimate PA systolic pressure. MEASUREMENTS: 2D Parasternal Long [place] LVOT 2.1 cmLVPWd 1.1 cm LVIDd5.2 cmIndex 2.7 cm/m LA Ds3.9 cm LVIDs3.5 cmAo An 2.2 cm LV%fs 32.8 % Ao Rtd 3.3 cm Index1.7 cm/m IVSd 1 cmLV Mass 195 g(87-129) LA Sng Plane LA Area 21.9 cm2(8.8-23.4) LA Vol70.3 ml Index36.2 ml/m LA LngAx 5.7 cm RA Sng Plane RA Area 20.7 cm2(8.3-19.5) RA Vol61.3 ml Index31.6 ml/m RA LngAx 6.3 cm DOPPLER AV For Flow/JEMIMA AV pkVel 110.2 cm/s (100-170) AV AC/ET 0.4 AV mnVel73 cm/Jose G TVI 17.5 cm AV pkPG4.9 mmHgAVpkAcRt 1875.1 cm/s2 AV Mean G2.5 mmHgAV DeRt 459.9 cm/s2 AV AC 86 msec (83-118) AV Area2.7 cm2(3-5) AV ET240 msec LVOT For Flow LVOT Area3.5 cm2 LVOT TVI 13.6 cm LVOTpkVel 87.6 cm/sLVOT SV 47.2 ml LVOTpkPG 3.1 mmHgHR 124.6 bpm LVOTmnPG 1.7 mmHgLVOT CO 5.9 l/min Signed 09/24/2016 04:51 PM Francesco Roa M.D. Procedure Note Interface, Radiology Results In - 09/24/2016 4:52 PM CDT Echocardiography Report [id number] [place] [address] Pat.Name: CATY FARMER Pat.ID: [id number] .Date: 09/23/2016 Refer.MD: CHARLOTTE VILLALOBOS MD Exam Time: 9:41:00 PM Study Type:Routine Echo Height: 165cm Weight: 86.5kg BSA: 1.94 m2 Age: 8 1935,81Y Sex: FEMALE BP: 118/59 HR: 98 bpm Sonogrphr: Sony Kennedy RDCS Pat. Stat.:Inpatient Room: G7976-Z Study Status:Final Echo Event ID:[id number] Order ID: [id number] Reason for Study:AFib Procedures:2D Echo, Colorflow Doppler, Intravenous Definity Contrast Race: C FINDINGS: LV: LV size is normal. There is mild concentric LV hypertrophy. LV function is mildly depressed. Global hypokinesis. Estimated EF is variable between 30-50% depending on the R-R interval. RV: RV size is normal. RV function is also variable likely mildly depressed. LA: LA volume is moderately enlarged. RA: RA volume is mildly enlarged. AO: Aortic root diameter is normal. LIU: Small anterior pericardial effusion. SVn: Normal collapse of IVC during inspiration is consistent with normal RA pressure. AV: No structural AV abnormalities noted. MV: Mild mitral annular calcification. A trace of mitral regurgitation. PV: No structural PV abnormalities noted. TV: No structural TV abnormalities noted. Other: Insufficient TR jet to estimate PA systolic pressure. MEASUREMENTS: 2D Parasternal Long [place] LVOT 2.1 cm LVPWd 1.1 cm LVIDd 5.2 cm Index 2.7 cm/m LA Ds 3.9 cm LVIDs 3.5 cm Ao An 2.2 cm LV%fs 32.8 % Ao Rtd 3.3 cm Index 1.7 cm/m IVSd 1 cm LV Mass 195 g (87-129) LA Sng Plane LA Area 21.9 cm2 (8.8-23.4) LA Vol 70.3 ml Index 36.2 ml/m LA LngAx 5.7 cm RA Sng Plane RA Area 20.7 cm2 (8.3-19.5) RA Vol 61.3 ml Index 31.6 ml/m RA LngAx 6.3 cm DOPPLER AV For Flow/JEMIMA AV pkVel 110.2 cm/s (100-170) AV AC/ET 0.4 AV mnVel 73 cm/s AV TVI 17.5 cm AV pkPG 4.9 mmHg AVpkAcRt 1875.1 cm/s2 AV Mean G 2.5 mmHg AV DeRt 459.9 cm/s2 AV AC 86 msec (83-118) AV Area 2.7 cm2 (3-5) AV ET 240 msec LVOT For Flow LVOT Area 3.5 cm2 LVOT TVI 13.6 cm LVOTpkVel 87.6 cm/s LVOT SV 47.2 ml LVOTpkPG 3.1 mmHg HR 124.6 bpm LVOTmnPG 1.7 mmHg LVOT CO 5.9 l/min Signed 09/24/2016 04:51 PM Francesco Roa M.D. * CRITICAL CARE (09/23/2016 5:41 AM) Narrative Roberto Caballero DO 09/23/20165:41 AM Critical Care Performed by: ROBERTO CABALLEOR Authorized by: ROBERTO CABALLERO Critical care provider statement: Critical care time (minutes):45 Critical care time was exclusive of:Separately billable procedures and treating other patients Critical care was necessary to treat or prevent imminent or life-threatening deterioration of the following conditions:Cardiac failure and sepsis Critical care was time spent personally by me on the following activities:Blood draw for specimens, development of treatment plan with patient or surrogate, discussions with consultants, evaluation of patient's response to treatment, ordering and performing treatments and interventions, ordering and review of laboratory studies, ordering and review of radiographic studies, pulse oximetry and re-evaluation of patient's condition Comments: Pt presented with atrial fibrillation with RVR and given Cardizem. Pt tachycardic and septic as well. * Lactic acid level (09/23/2016 3:13 AM) Component Value Ref Range Lactic acid 1.4 0.5 - 2.2 mmol/L Specimen Performing Laboratory Plasma specimen [facility] OF [facility] [address] [place] [id number] * Influenza antigen (09/23/2016 2:27 AM) Component Value Ref Range Influenza antigen Negative for Influenza A/B antigen. Comment: Specimen Information Specimen Source: Nares Specimen Site: Left Specimen Performing Laboratory Nares - Left [facility] OF [facility]OM[facility]ICINE [address] [place] [phone] after 08/09/2016 Insurance Payer Benefit Subscriber ID Type Phone Address Plan / Group MEDICARE MEDICARE xxxxxxxxxx Medicare [place], [place] PART A AND B AETNA AETNA xxxxxxxxxx Indemnity [facility] INDEMNITY Home:
[2017-08-10] MEDS ORDERED: ASPIRIN 81 MG CHEW TAB PO ONE (23:00)
[2017-08-10 23:34] LABS: BASOPHILS % 0.2 % (0.0-1.0); EOSINOPHILS # (AUTO) 0.1 (0.0-0.4); EOSINOPHILS % 0.7 % (0.0-6.0); HEMATOCRIT 32.8 % (34.2-44.1); LYMPHOCYTES # (AUTO) 1.9 (1.0-3.2); LYMPHOCYTES % 17.3 % (18.0-39.1); MEAN CORPUSCULAR HEMOGLOBIN 32.4 pg (28-32); MEAN CORPUSCULAR HGB CONC 33.5 g/dL (31-35); MEAN CORPUSCULAR VOLUME 96.5 fL (81-99); MONOCYTES # (AUTO) 0.8 (0.2-0.8); MONOCYTES % 7.5 % (4.4-11.3); NEUTROPHILS # (AUTO) 8.1 (2.1-6.9); NEUTROPHILS % 73.3 % (38.7-80.0); PLATELET COUNT 247 x10e3/uL (140-360); RED CELL DISTRIBUTION WIDTH 14.4 % (11.7-14.4)
[2017-08-10 23:58] LABS: ALBUMIN 3.3 g/dL (3.5-5.0); ALBUMIN/GLOBULIN RATIO 0.8 (0.8-2.0); ANION GAP 15.9 mmol/L (8-16); CALCIUM 9.3 mg/dL (8.4-10.2); CREATININE, SERUM 1.47 mg/dL (0.57-1.11); POTASSIUM 3.9 mmol/L (3.5-5.1)
[2017-08-11 00:06] LABS: CREATINE KINASE MB 0.9 ng/mL (0-5.0)
[2017-08-11 00:21] LABS: INR 1.34; PROTHROMBIN TIME 15.6 seconds (11.9-14.5)
[2017-08-11 00:22] LABS: PARTIAL THROMBOPLASTIN TIME 32.8 seconds (23.8-35.5)
[2017-08-11] MEDS ORDERED: SODIUM CHLORIDE 0.9% 1000ML 1,000 ML IV ONE (00:30)
[2017-08-11 01:30] LABS: BILIRUBIN,URINE NEGATIVE (NEGATIVE); CLARITY,URINE CLEAR (CLEAR); COLOR,URINE YELLOW (YELLOW); KETONES,URINE NEGATIVE (NEGATIVE); LEUKOCYTE ESTERASE ,URINE TRACE (NEGATIVE); NITRITE,URINE NEGATIVE (NEGATIVE); PROTEIN,URINE DIPSTICK NEGATIVE (NEGATIVE); URINE UROBILINOGEN 0.2 mg/dL (0.2 - 1)
[2017-08-11 01:50] LABS: WBC,URINE (MAN) 0-5 /HPF (0-5)
[2017-08-11 01:51] LABS: BACTERIA,URINE RARE /HPF; CALCIUM OXALATE CRYSTALS,UR FEW (FEW); EPITHELIAL CELLS,URINE RARE /LPF
--- NOTE | 2017-08-11 02:32 | Diagnostic Imaging Report ---
CHEST 2 VIEWS, Technique: CHEST 2 VIEWS Comparison: 07/16/2016, 07/02/2014 Clinical history: Cough DISCUSSION: Stable cardiomediastinal silhouette with mildly tortuous aorta. Patchy right infrahilar opacities likely in the middle and lower lobe. No effusion or pneumothorax. IMPRESSION: Patchy right infrahilar opacity suspicious for pneumonia. Recommend 6-8 week follow-up. Signed by: Dr Loren Campos MD on 08/11/2017 12:05 AM
[2017-08-11] MEDS: CEFTRIAXONE SOD 1 GM VIAL IV SCH (03:00)
[2017-08-11] MEDS: AZITHROMYCIN 500MG/NS 250 ML 250 ML IV SCH (03:10)
--- OUTSIDE RECORDS SUMMARY | 2017-08-11 03:40 | XMS REPORT ---
Author [facility] Address Unknown Phone Unavailable Care Team Providers Care Supervisor Drapery Hanging Name Role Phone CAITLIN WRIGHT Unavailable Unavailable Problems This patient has no known problems. Allergies, Adverse Reactions, Alerts This patient has no known allergies or adverse reactions. Medications This patient has no known medications. Results Test Description Test Time Test Comments Text Results Atomic Results Result Comments CHEST 2 VIEWS [place] [address] Patient Name: CATY QUINONES MR #: [id number] : 1935 Age/Sex: 82/F Req #: [id number] Adm Physician: Ordered by: CAITLIN WRIGHT MD Report # : [id number] Location: ER Room/Bed: Procedure: [id number] DX/CHEST 2 VIEWS Exam Date: 08/10/17 Exam Time : 2319 REPORT STATUS: Signed CHEST 2 VIEWS, Technique: CHEST 2 VIEWS Comparison: 07/16/2016, 07/02/2014 Clinical history: Cough DISCUSSION: Stable cardiomediastinal silhouette with mildly tortuous aorta. Patchy right infrahilar opacities likely in the middle and lower lobe. No effusion or pneumothorax. IMPRESSION: Patchy right infrahilar opacity suspicious for pneumonia. Recommend 6-8 week follow-up. Signed by: Dr Semaj Campos MD on 08/11/2017 12:05 AM Dictated By: SEMAJ CAMPOS MD Transcribed By: JASON on 08/11/174 COPY TO: CAITLIN WRIGHT MD
--- OUTSIDE RECORDS SUMMARY | 2017-08-11 03:40 | XMS REPORT | Clinical Summary ---
Author Author [facility] [place] [facility] Address Unknown Phone Unavailable Care Team Providers Care Mechanical Maintenance Name Role Phone Mera Ward MD PCP [...] Team Description 11/28/2016 Orders Only Cardiology Sonido Meo MA 11/08/2016 Patient Quality Sofía Padilla RN Outreach 11/02/2016 [facility] Obstetrics and Gynecology Grant Montejo Pneumonia of both lower - Encounter MD Jon lobes due to infectious 11/08/2016 Magaly Villalobos MD organism (Primary Dx) 09/24/2016 Anesthesia Procedural Cardiology Robert Villalobos Event 09/24/2016 Procedure Pass Procedural Cardiology 09/22/2016 [facility] Cardiology CaballeroRoberto, Pneumonia of both lungs - Encounter DO due to infectious 09/26/2016 Charlotte Villalobos MD organism, unspecified part of lung (Primary Dx); Sepsis, due to unspecified organism; Atrial fibrillation with RVR; Mild intermittent asthma with acute exacerbation after 08/10/2016 Family History Medical History Relation Name Comments [...] CDT procedure are in the [facility]ER (52984) results section. ECHOCARDIOGRAM 2D Routine 09/23/2016 Results for this COMPLETE W MMODE SPECTRAL 11:24 PM CDT procedure are in the COLOR DOPPLER (47048) results section. SD CRITICAL CARE, E/M Routine 09/23/2016 Results for this 30-74 MINUTES 5:41 AM CDT procedure are in the results section. after 08/10/2016 Results * POC glucose (11/08/2016 12:25 PM) Only the most recent of 9 results within the time period is included. Component Value Ref Range POC glucose 254 (H) 65 - 99 mg/dL Comment: [facility] Notified RN Meter ID: [id number] Repair Specialist: Wayne Jason Specimen Performing Laboratory [facility] DEPARTMENT OF PATHOLOGY AND GENOMIC MEDICINE [address] [place], [place] [id number] * Estimated GFR (11/08/2016 4:00 AM) Only [...] and Americans. Specimen Performing Laboratory Plasma specimen [facility] DEPARTMENT OF PATHOLOGY AND GENOMIC MEDICINE [address] [place] [address] * Basic metabolic panel (11/08/2016 4:00 AM) [...] 10.2 mg/dL Specimen Performing Laboratory Plasma specimen [facility] DEPARTMENT OF PATHOLOGY AND [address] [address] * Phosphorus level (11/07/2016 4:25 AM) Only the most recent of 5 results within the time period is included. Component Value Ref Range Phosphorus 3.6 2.4 - 4.5 mg/dL Specimen Performing Laboratory Plasma specimen [facility] DEPARTMENT OF PATHOLOGY AND [address] [address] * B natriuretic peptide (11/07/2016 4:25 AM) Only the most recent of 5 results within the time period is included. Component Value Ref Range BNP 391 (H) 0 - 100 pg/mL Specimen Performing Laboratory Blood [facility] PATHOLOGY AND [address] [address] * Magnesium level (11/07/2016 4:25 AM) Only the most recent of 6 results within the time period is included. Component Value Ref Range Magnesium 1.9 1.6 - 2.4 mg/dL Specimen Performing Laboratory Plasma specimen [facility] PATHOLOGY AND [address] [address] * Hemoglobin A1c (11/07/2016 4:25 AM) Component [...] type 1 diabetes. Specimen Performing Laboratory Blood [facility] PATHOLOGY AND [address] [address] * Hepatic function panel (11/07/2016 4:25 AM) [...] 35 U/L Specimen Performing Laboratory Plasma specimen [facility] DEPARTMENT OF PATHOLOGY AND GENOMIC MEDICINE [address] [place] [address] * XR Chest 1 Vw (11/06/2016 5:25 PM) Specimen Performing Laboratory [facility] [address] [place] [address] Narrative EXAMINATION:XR CHEST 1 VW CLINICAL HISTORY:Cough [...] (11/06/2016 10:31 AM) Specimen Performing Laboratory [facility] [address] [place] [address] Narrative Echocardiography Report [address] [place] [address] Pat.Name:CATY FARMER Pat.ID:[id number] .Date: 11/06/2016 Refer.MD:MAGALY VILLALOBOS MD Exam Time: 9:47:00 AMStudy Type:Routine Echo Height:64.96in Weight:184lb BSA: 1.91 m2 DOBAge:9[birth year]81Y Sex: FEMALEBP: 138/65 Sonogrphr: BONILLA JARA, RDSHUN, STAN/Adelso Mcdowell MD Pat. Stat.:Inpatient Room:S878Odypr Status:Final Echo Event ID:[id number] Order ID:[id number] Reason for Study:HF; initial eval with symptoms [...] RAPof 5 mmHg. MEASUREMENTS: 2D Parasternal [place] LVOT 2 cmLA Ds 3.6 cm LVIDd5.4 cmIndex 2.8 cm/m Ao An2 cm LVIDs3.9 cmAo Rtd 3.2 cm Index1.7 cm/m LV%fs 28.9 % LV Mass 149.7 g(87-129) IVSd 0.7 cmLVM Index 78.4 g/m2 LVPWd0.9 cmRWT 0.3 LV EF SinglePlane LV Ad 35.4 cm2(9.5-22.3) LV EF 55.4 %(55-75) XGSTP651.4 ml (59-136) Index66.2 ml/m HR54 bpm LV [...] - 11/06/2016 3:45 PM CDT Echocardiography Report [address] [place] [address] Pat.Name: CATY FARMER.ID: [id number] .Date: 11/06/2016 Refer.MD: MAGALY VILLALOBOS MD Exam Time: 9:47:00 AM Study Type:Routine Echo Height: 64.96in Weight: 184lb BSA: 1.91 m2 Age: 8 1935,81Y Sex: FEMALE BP: 138/65 Sonogrphr: WENDI QUINTEROS, RCS, RDCS, [facility]/Adelso Mcdowell MD Pat. Stat.:Inpatient Room: M632 Study Status:Final Echo Event ID:[id number] Order ID: [id number] Reason for Study:HF; initial eval with symptoms [...] of 5 mmHg. MEASUREMENTS: 2D Parasternal [place] LVOT 2 cm LA Ds 3.6 cm [...] Renal (11/05/2016 9:22 AM) Specimen Performing Laboratory [address] [address] Narrative EXAM: RENAL CLINICAL DATA:HYDRONEPHROSIS, does not [...] IMPRESSION: 1. Renal ultrasound findings as above. [facility]-[id number] Procedure Note Hm Interface, Radiology Results Incoming [...] IMPRESSION: 1. Renal ultrasound findings as above. [facility]-[id number] * Angiotensin converting enzyme (11/05/2016 7:01 AM) Component Value Ref Range Angiotensin converting 44 9 - 67 U/L enzyme Comment: Performed by [employer], [address] [place] [id number] www[email or web address], Harpal Grigsby MD - Lab. Director Specimen Performing Laboratory Serum [facility] [address] [place] [address] * Urinalysis screen and microscopy, with reflex [...] UA 1 /LPF Specimen Performing Laboratory Urine [facility] DEPARTMENT OF PATHOLOGY AND [facility] [address] [place] [address] * Protein, urine, random (11/05/2016 6:30 AM) Component Value Ref Range Protein, urine random 36 mg/dL Specimen Performing Laboratory Urine [facility] DEPARTMENT OF PATHOLOGY AND [facility] [address] [place] [address] * Osmolality, urine (11/05/2016 6:30 AM) Component Value Ref Range Osmolality, urine 650 50 - 1,400 mOsm/kg Specimen Performing Laboratory Urine [facility] DEPARTMENT OF PATHOLOGY AND [address] [address] * Creatinine level, urine, random (11/05/2016 6:30 AM) Component Value Ref Range Creatinine, urine, random 137 mg/dL Specimen Performing Laboratory Urine [facility] [place] [address] * Urine culture (11/05/2016 6:30 AM) Only the most recent of 2 results within the time period is included. Component Value Ref Range Urine culture SEE COMMENTComment: Bacteriuria screen negative. Specimen Performing Laboratory [facility] DEPARTMENT OF PATHOLOGY AND [address] [address] * Total iron binding capacity (11/05/2016 5:05 AM) Component Value Ref Range Iron level 54 37 - 145 ug/dL Iron binding capacity 209 200 - 400 ug/dL % Saturation 25.8 15.0 - 38.0 % Specimen Performing Laboratory Plasma specimen [facility] [place] [address] * Immunofixation, serum (11/05/2016 5:05 AM) Component Value Ref Range Immunofixation, serum SEE COMMENTComment: See electrophoresis report below. Specimen Performing Laboratory Serum [facility] [address] [address] * Vitamin D 25 hydroxy level (11/05/2016 [...] for alternative methods. Specimen Performing Laboratory Blood [facility] DEPARTMENT OF PATHOLOGY AND GENOMIC MEDICINE [address] [place] [address] * Reticulocyte count (11/05/2016 5:05 AM) Component Value Ref Range Retic %, auto 1.5 0.5 - 2.1 % Retic absolute, auto 0.0502 0.0210 - 0.1155 m/uL Specimen Performing Laboratory [facility] DEPARTMENT OF PATHOLOGY AND GENOMIC MEDICINE [address] [place] [address] * CBC with platelet and differential (11/05/2016 [...] (promyelocytes, myelocytes, metamyelocytes) Specimen Performing Laboratory Blood [facility] DEPARTMENT OF PATHOLOGY AND GENOMIC MEDICINE [address] [place] [address] * Serum electrophoresis (11/05/2016 5:05 AM) Component [...] Schroeder MD, PhD Specimen Performing Laboratory Serum [facility] DEPARTMENT OF PATHOLOGY AND GENOMIC MEDICINE [address] [place] [address] * Ferritin level (11/05/2016 5:05 AM) Component Value Ref Range Ferritin level 201 (H) 13 - 150 ng/mL Specimen Performing Laboratory Plasma specimen [facility] DEPARTMENT OF PATHOLOGY AND GENOMIC MEDICINE [address] [place] [address] * Vitamin B12 level (11/05/2016 5:05 AM) Component Value Ref Range Vitamin B12 438 211 - 946 pg/mL Comment: Significant overlap exists between normal and deficiency states. However, most patients with deficiencies will have Serum B12 <200 pg/mL. Specimen Performing Laboratory Serum [facility] DEPARTMENT OF PATHOLOGY AND GENOMIC MEDICINE [address] [place] [address] * Vancomycin level, random (11/04/2016 10:00 PM) Component Value Ref Range Vancomycin, random 9.0 ug/mL Specimen Performing Laboratory Serum [facility] DEPARTMENT OF PATHOLOGY AND [facility] [address] [place] [address] * LDH (11/04/2016 4:36 AM) Only the most recent of 2 results within the time period is included. Component Value Ref Range LDH 134 87 - 225 U/L Specimen Performing Laboratory Plasma specimen [facility] DEPARTMENT [place] [address] * Streptococcus pneumoniae urinary antigen (11/03/2016 4:49 PM) Component Value Ref Range Strep pneumo urinary Ag Negative for Streptococcus pneumoniae antigen. Comment: Specimen Information Specimen Source: Urine Specimen Site: Random void Specimen Performing Laboratory Urine - Random void [facility] [place] [address] * Legionella urinary antigen (11/03/2016 4:49 PM) Component Value Ref Range Legionella urinary Negative for Legionella serogroup 1 antigen. antigen Comment: Specimen Information Specimen Source: Urine Specimen Site: Random void Specimen Performing Laboratory Urine - Random void [facility] DEPARTMENT OF PATHOLOGY AND [facility] [address] [place] [address] * ECG 12 lead (11/03/2016 1:11 PM) Only the most recent of 5 results within the time period is included. Component Value Ref Range Ventricular rate 133 Atrial rate 133 QRSD interval 110 QT interval 354 QTC interval 526 QRS axis 1 68 T wave axis -38 EKG impression Sinus tachycardia with short SD-Low voltage QRS-Nonspecific ST and T wave abnormality-Prolonged QT-Abnormal ECG-In automated comparison with ECG of 02-NOV-2016 16:00,-SD interval has decreased-ST now depressed in Inferior leads- Specimen Performing Laboratory [facility] MUSE [address] [place] [address] * Sputum culture (11/03/2016 12:40 PM) Component Value Ref Range Sputum culture isolate Normal oral brandee isolated. Comment: Specimen Information Specimen Source: Sputum Specimen Site: Expectorated Specimen Performing Laboratory Sputum - Expectorated [facility] DEPARTMENT OF PATHOLOGY AND [facility] [address] [place] [address] * Gram stain (11/03/2016 12:40 PM) Component Value Ref Range Gram stain isolate Many WBC's Few Gram positive rods Comment: Specimen Information Specimen Source: Sputum Specimen Site: Expectorated Specimen Performing Laboratory Sputum - Expectorated [facility] DEPARTMENT OF PATHOLOGY AND GENOMIC MEDICINE [address] [place] [address] * CT Chest Wo Contrast Abdomen Wo Contrast Pelvis Wo Contrast (11/03/2016 11:10 AM) Specimen Performing Laboratory [facility] [address] [place] [address] Narrative EXAMINATION:CT CHEST WO CONTRAST ABDOMEN WO [...] 1.6 cm. IMPRESSION: No mass or adenopathy. [id number] Procedure Note Hm Interface, Radiology Results Incoming [...] 1.6 cm. IMPRESSION: No mass or adenopathy. [id number] * Aspergillus Ab by CF, serum (11/03/2016 [...] titer against a single antigen. Performed by [employer], [address] [place] [phone] www[email or web address], Harpal Grigsby MD - Lab. Director Specimen Performing Laboratory Serum [address] [address] * IgG subclasses (11/03/2016 7:51 AM) Component Value Ref Range Immunoglobulin G subclass 688 240 - 1,118 mg/dL 1 Comment: REFERENCE INTERVAL: Immunoglobulin G Subclass 1 Access complete set of age- and/or gender-specific reference intervals for this test in the [facility] Test Directory ([facility]). Immunoglobulin G subclass 346 124 - 549 mg/dL 2 Comment: REFERENCE INTERVAL: Immunoglobulin G Subclass 2 Access complete set of age- and/or gender-specific reference intervals for this test in the [facility] Test Directory ([employer]). Immunoglobulin G subclass 120 21 - 134 mg/dL 3 Comment: REFERENCE INTERVAL: Immunoglobulin G Subclass 3 Access complete set of age- and/or gender-specific reference intervals for this test in the [facility] Test Directory ([facility]). Immunoglobulin G subclass 36 1 - 123 mg/dL 4 Comment: The total IgG (mg/dL) can be derived by the sum of the subclasses IgG1, IgG2, IgG3 and IgG4 values. However, a confirmatory and more precise total IgG is available by the nephelometric method of total IgG (Test # [id number]). REFERENCE INTERVAL: Immunoglobulin G Subclass 4 Access complete set of age- and/or gender-specific reference intervals for this test in the [facility] Test Directory ([facility]). Performed by [employer] [facility] [address] www.[email or web address], Harpal Grigsby MD - Lab. Director Specimen Performing Laboratory Serum [address] [address] * Immunoglobulin A (11/03/2016 7:51 AM) Component Value Ref Range IgA 218 70 - 400 mg/dL Specimen Performing Laboratory Plasma specimen [facility] DEPARTMENT OF PATHOLOGY AND GENOMIC MEDICINE [address] [place] [address] * Immunoglobulin M (11/03/2016 7:51 AM) Component Value Ref Range IgM 64 33 - 255 mg/dL Specimen Performing Laboratory Plasma specimen [facility] DEPARTMENT OF PATHOLOGY AND GENOMIC MEDICINE [address] [place] [address] * Respiratory pathogen panel (11/03/2016 1:25 AM) [...] Left Specimen Performing Laboratory Nares - Left [facility] DEPARTMENT OF PATHOLOGY AND GENOMIC MEDICINE [address] [place] [address] * Blood culture, aerobic & anaerobic (11/02/2016 9:55 PM) Only the most recent of 4 results within the time period is included. Component Value Ref Range Blood culture isolate No growth after 5 days of incubation. Comment: Specimen Information Specimen Source: Blood Specimen Site: Hand, digit right Specimen Performing Laboratory Blood - Hand, digit right [facility] DEPARTMENT OF PATHOLOGY AND GENOMIC MEDICINE [address] [place] [address] * Troponin (11/02/2016 8:30 PM) Only the [...] myocardial injury. Specimen Performing Laboratory Plasma specimen [facility] DEPARTMENT OF PATHOLOGY AND GENOMIC MEDICINE [address] [place] [address] * XR Chest 1 Vw Portable (11/02/2016 5:50 PM) Only the most recent of 2 results within the time period is included. [facility] [address] [place] [address] Narrative EXAMINATION:XR CHEST 1 VW PORTABLE CLINICAL HISTORY:Cough COMPARISON:09/22/2016 IMPRESSION: Heart and mediastinum are stable. Low lung volumes, with mild left basilar patchy opacities and no definite new consolidations. [id number] Procedure Note Hm Interface, Radiology Results Incoming - 11/02/2016 6:00 PM CDT EXAMINATION: XR CHEST 1 VW PORTABLE CLINICAL HISTORY: Cough COMPARISON: 09/22/2016 IMPRESSION: Heart and mediastinum are stable. Low lung volumes, with mild left basilar patchy opacities and no definite new consolidations. [facility]-[id number] * Partial thromboplastin time, activated (11/02/2016 4:20 PM) Only the most recent of 2 results within the time period is included. Component Value Ref Range PTT 34.2 23.0 - 36.0 sec Comment: PTT therapeutic range for unfractionated heparin is 61.0-112.0 seconds which corresponds to Anti-Xa 0.3-0.7 U/ml. Specimen Performing Laboratory Blood [facility] DEPARTMENT OF PATHOLOGY AND GENOMIC MEDICINE [address] [place] [address] * Prothrombin time with INR (11/02/2016 4:20 [...] vein thrombosis/pulmonary embolism. Specimen Performing Laboratory Blood [facility] DEPARTMENT OF PATHOLOGY AND GENOMIC MEDICINE [address] [place] [address] * Creatine kinase, total (CPK) (11/02/2016 4:20 PM) Component Value Ref Range Creatine kinase 45 26 - 192 U/L Specimen Performing Laboratory Plasma specimen [facility] DEPARTMENT OF PATHOLOGY AND GENOMIC MEDICINE [address] [place] [address] * Comprehensive metabolic panel (11/02/2016 4:20 PM) [...] Protein 6.8 6.3 - 8.3 g/dL Comment: Dulzura 4.6-7.0 g/dL 1 week 4.4-7.6 g/dL 7 [...] 1.2 mg/dL Specimen Performing Laboratory Plasma specimen [facility] DEPARTMENT [place] [address] * Vancomycin level, trough (09/26/2016 11:00 AM) Component Value Ref Range Vancomycin, trough 8.6 (L) 10.0 - 20.0 ug/mL Comment: Therapeutic Ranges: Peak 30.0 - 40.0 ug/mL Trough 10.0 - 20.0 ug/mL Specimen Performing Laboratory Serum [facility] DEPARTMENT OF PATHOLOGY AND [facility] [address] [place], [place] [id number] * CT Chest W Contrast (09/24/2016 3:37 PM) Specimen Performing Laboratory [place] [id number] Narrative EXAMINATION:CT CHEST W CONTRAST CLINICAL HISTORY:feverpneumonia [...] to prior insult. 4.No suspicious osseous lesions. [facility]-[id number] Procedure Note [facility], Radiology Results Incoming - 09/25/2016 5:19 PM [...] to prior insult. 4.No suspicious osseous lesions. [facility]-[id number] * Thyroid stimulating hormone (09/24/2016 10:50 AM) Only the most recent of 2 results within the time period is included. Component Value Ref Range TSH 2.75 0.27 - 4.20 uIU/mL Specimen Performing Laboratory Plasma specimen [facility] DEPARTMENT OF PATHOLOGY AND GENOMIC MEDICINE [address] [place] [address] * Digoxin level (09/24/2016 4:40 AM) Component Value Ref Range Digoxin 1.4 0.8 - 2.0 ng/mL Comment: For valid Digoxin results, at least 6 hours should elapse between time of last dose and collection of blood. Otherwise, result may be false high. Therapeutic Range: 0.8 - 2.0 ng/mL Specimen Performing Laboratory Plasma specimen [facility] DEPARTMENT OF PATHOLOGY AND GENOMIC MEDICINE [address] [place] [address] * Lipid panel (09/24/2016 4:40 AM) Component [...] (>=200 mg/dL) Specimen Performing Laboratory Plasma specimen [facility] DEPARTMENT OF PATHOLOGY AND GENOMIC MEDICINE [address] [place] [address] * Echocardiogram complete w contrast and 3D if needed (09/23/2016 11:24 PM) [facility]imen [facility] [address] [place] [address] Narrative Echocardiography Report [address] [place] [address] Pat.Name:CATY FARMER Pat.ID:[id number] .Date: 09/23/2016 Refer.MD:VILLALOBOSCHARLOTTE RAWLS MD Exam Time: 9:41:00 PMStudy Type:Routine Echo Height:165cm Weight:86.5kg BSA: 1.94 m2 DOBAge:1934,81Y Sex: FEMALEBP: 118/59 HR:98 bpmSonogrphr: Sony Kennedy SHUN Pat. Stat.:Inpatient Room:[address] Study Status:Final Echo Event ID:[id number] Order ID:[id number] Reason for Study:AFib Procedures:2D Echo, Colorflow Doppler, [...] PA systolic pressure. MEASUREMENTS: 2D Parasternal [place] LVOT 2.1 cmLVPWd 1.1 cm LVIDd5.2 cmIndex [...] - 09/24/2016 4:52 PM CDT Echocardiography Report [address] [place] [address] Pat.Name: CATY FARMER Pat.ID: [id number] .Date: 09/23/2016 Refer.MD: CHARLOTTE VILLALOBOS MD Exam Time: 9:41:00 PM Study Type:Routine Echo Height: 165cm Weight: 86.5kg BSA: 1.94 m2 Age: 8 1935,81Y Sex: FEMALE BP: 118/59 HR: 98 bpm Sonogrphr: Sony Kennedy RDCS Pat. Stat.:Inpatient Room: W0978-X Study Status:Final Echo Event ID:[id number] Order ID: [id number] Reason for Study:AFib Procedures:2D Echo, Colorflow Doppler, [...] PA systolic pressure. MEASUREMENTS: 2D Parasternal [place] LVOT 2.1 cm LVPWd 1.1 cm LVIDd [...] 09/23/20165:41 AM Critical Care Performed by: ROBERTO CABALLERO Authorized by: ROBERTO CABALLERO Critical care provider [...] 2.2 mmol/L Specimen Performing Laboratory Plasma specimen [facility] DEPARTMENT OF PATHOLOGY AND GENOMIC MEDICINE [address] [place] [address] * Influenza antigen (09/23/2016 2:27 AM) Component Value Ref Range Influenza antigen Negative for Influenza A/B antigen. Comment: Specimen Information Specimen Source: Nares Specimen Site: Left Specimen Performing Laboratory Nares - Left [facility] DEPARTMENT OF PATHOLOGY AND GENOMIC MEDICINE [address] [place] [address] after 08/10/2016 Insurance Payer Benefit Subscriber ID Type Phone Address Plan / Group MEDICARE MEDICARE xxxxxxxxxx Medicare [place], [place] PART A AND B AETNA AETNA xxxxxxxxxx Indemnity [facility] INDEMNITY Home:
[2017-08-11] MEDS ORDERED: ASPIRIN 81 MG CHEW TAB PO ONE (03:45)
[2017-08-11] MEDS: SODIUM CHLORIDE 0.9% 1000ML 1,000 ML IV SCH ×3 (04:58→19:31)
[2017-08-11] MEDS: ONDANSETRON HCL INJ 2 MG/ML VIAL IV PRN ×2 (04:59→13:18)
[2017-08-11 07:02] LABS: CREATINE KINASE MB 1.2 ng/mL (0-5.0)
[2017-08-11 15:34] LABS: CREATINE KINASE MB 1.4 ng/mL (0-5.0)
[2017-08-11] MEDS: METOPROLOL SUCCINATE 50 MG TAB XL PO SCH (17:43)
[2017-08-11] MEDS: AMITRIPTYLINE HCL 25 MG TAB PO SCH (17:43)
[2017-08-11] MEDS ORDERED: SALMETEROL XINAFOATE IH SCH (19:00)
[2017-08-11] MEDS: SALMETEROL XINAFOATE SCH (19:30)
[2017-08-11] MEDS: ACETAMINOPHEN 325 MG TAB PO PRN (20:30)
[2017-08-11] MEDS: APIXABAN 5 MG TABLET PO SCH (21:00)
[2017-08-11] MEDS: ALBUTEROL/IPRATROPIUM 3 ML NEB NEB SCH (21:45)
[2017-08-11 22:47] VITALS: BP 123/60
[2017-08-11 23:00] VITALS: BP 123/60
[2017-08-12 03:09] LABS: CREATINE KINASE MB 1.2 ng/mL (0-5.0)
[2017-08-12] MEDS: SODIUM CHLORIDE 0.9% 1000ML 1,000 ML IV SCH ×2 (04:01→11:31)
[2017-08-12] MEDS: AZITHROMYCIN 500MG/NS 250 ML 250 ML IV SCH (04:01)
[2017-08-12] MEDS: CEFTRIAXONE SOD 1 GM VIAL IV SCH (04:01)
[2017-08-12] MEDS: ALBUTEROL/IPRATROPIUM 3 ML NEB NEB SCH ×5 (07:00→23:55)
[2017-08-12] MEDS: SALMETEROL XINAFOATE SCH ×2 (07:00→19:00)
[2017-08-12 07:54] VITALS: BP 126/59
[2017-08-12] MEDS: VERAPAMIL HCL 120 MG TABSR PO SCH (09:00)
[2017-08-12] MEDS: PANTOPRAZOLE SOD 40 MG TABEC PO SCH (09:00)
[2017-08-12] MEDS: AMITRIPTYLINE HCL 25 MG TAB PO SCH ×2 (09:00→17:00)
[2017-08-12] MEDS: APIXABAN 5 MG TABLET PO SCH ×2 (09:00→20:14)
[2017-08-12] MEDS: FUROSEMIDE 40 MG TAB PO SCH (09:00)
[2017-08-12] MEDS: METOPROLOL SUCCINATE 50 MG TAB XL PO SCH (09:00)
[2017-08-12] MEDS: MONTELUKAST SODIUM 10 MG TAB PO SCH (09:00)
[2017-08-12 11:37] VITALS: BP 146/64
[2017-08-12] MEDS: ACETAMINOPHEN 325 MG TAB PO PRN (12:46)
[2017-08-12 15:35] VITALS: BP 116/56
[2017-08-12 20:56] VITALS: BP 130/56
[2017-08-13] VITALS (8 sets, daily range): BP systolic 115–129; BP diastolic 55–61
[2017-08-13] MEDS: CEFTRIAXONE SOD 1 GM VIAL IV SCH (03:25)
[2017-08-13] MEDS: AZITHROMYCIN 500MG/NS 250 ML 250 ML IV SCH (03:25)
[2017-08-13] MEDS: ALBUTEROL/IPRATROPIUM 3 ML NEB NEB SCH ×6 (03:45→23:10)
[2017-08-13 06:45] LABS: BASOPHILS % 0.3 % (0.0-1.0); EOSINOPHILS # (AUTO) 0.1 (0.0-0.4); EOSINOPHILS % 1.4 % (0.0-6.0); HEMATOCRIT 27.2 % (34.2-44.1); HEMOGLOBIN 9.1 g/dL (12.0-16.0); LYMPHOCYTES # (AUTO) 1.8 (1.0-3.2); LYMPHOCYTES % 31.5 % (18.0-39.1); MEAN CORPUSCULAR HEMOGLOBIN 33.2 pg (28-32); MEAN CORPUSCULAR HGB CONC 33.5 g/dL (31-35); MEAN CORPUSCULAR VOLUME 99.3 fL (81-99); MONOCYTES # (AUTO) 0.5 (0.2-0.8); MONOCYTES % 8.8 % (4.4-11.3); NEUTROPHILS # (AUTO) 3.3 (2.1-6.9); NEUTROPHILS % 57.3 % (38.7-80.0); PLATELET COUNT 232 x10e3/uL (140-360); RED BLOOD COUNT 2.74 x10e6/uL (3.6-5.1); RED CELL DISTRIBUTION WIDTH 13.9 % (11.7-14.4)
[2017-08-13] MEDS: SALMETEROL XINAFOATE SCH ×2 (07:00→19:00)
[2017-08-13 07:04] LABS: CALCIUM 8.5 mg/dL (8.4-10.2); CREATININE, SERUM 0.94 mg/dL (0.57-1.11)
[2017-08-13] MEDS: MONTELUKAST SODIUM 10 MG TAB PO SCH (08:59)
[2017-08-13] MEDS: VERAPAMIL HCL 120 MG TABSR PO SCH (08:59)
[2017-08-13] MEDS: AMITRIPTYLINE HCL 25 MG TAB PO SCH ×2 (08:59→16:54)
[2017-08-13] MEDS: APIXABAN 5 MG TABLET PO SCH ×2 (08:59→20:21)
[2017-08-13] MEDS: FUROSEMIDE 40 MG TAB PO SCH (08:59)
[2017-08-13] MEDS: PANTOPRAZOLE SOD 40 MG TABEC PO SCH (08:59)
--- NOTE | 2017-08-13 11:06 | Diagnostic Imaging Report ---
PROCEDURE: Frontal and lateral views of the chest. COMPARISON: Chest x-ray 08/10/2017. INDICATIONS: PNEUMONIA FINDINGS: Lines/tubes: None. Lungs: Lungs are well-inflated. Bibasilar airspace opacities and/or atelectasis remain unchanged. Pleura: There is no pleural effusion or pneumothorax. Heart and mediastinum: The heart and the mediastinum are normal. Bones: No acute bony abnormality. IMPRESSION: Bibasilar atelectasis and/or consolidation remain unchanged. Dictated by: Isiah Cortes M.D. on 08/13/2017 at 11:06 Electronically approved by: Isiah Cortes M.D. on 08/13/2017 at 11:06
[2017-08-13] MEDS ORDERED: FUROSEMIDE INJ 10 MG/ML 4 ML VIAL IV NR (15:00)
[2017-08-14] VITALS (7 sets, daily range): BP systolic 101–140; BP diastolic 53–75
[2017-08-14] MEDS: CEFTRIAXONE SOD 1 GM VIAL IV SCH (03:00)
[2017-08-14] MEDS: AZITHROMYCIN 500MG/NS 250 ML 250 ML IV SCH (03:00)
[2017-08-14 06:30] LABS: BASOPHILS % 0.4 % (0.0-1.0); EOSINOPHILS # (AUTO) 0.1 (0.0-0.4); HEMATOCRIT 30.7 % (34.2-44.1); HEMOGLOBIN 10.1 g/dL (12.0-16.0); LYMPHOCYTES % 36.9 % (18.0-39.1); MEAN CORPUSCULAR HEMOGLOBIN 32.1 pg (28-32); MEAN CORPUSCULAR HGB CONC 32.9 g/dL (31-35); MEAN CORPUSCULAR VOLUME 97.5 fL (81-99); MONOCYTES # (AUTO) 0.6 (0.2-0.8); MONOCYTES % 10.2 % (4.4-11.3); NEUTROPHILS # (AUTO) 2.7 (2.1-6.9); PLATELET COUNT 259 x10e3/uL (140-360); RED BLOOD COUNT 3.15 x10e6/uL (3.6-5.1); RED CELL DISTRIBUTION WIDTH 13.7 % (11.7-14.4)
[2017-08-14] MEDS: SALMETEROL XINAFOATE SCH ×2 (07:00→19:00)
[2017-08-14 07:05] LABS: ANION GAP 12.6 mmol/L (8-16); CALCIUM 8.9 mg/dL (8.4-10.2); CREATININE, SERUM 1.03 mg/dL (0.57-1.11); POTASSIUM 3.6 mmol/L (3.5-5.1)
[2017-08-14] MEDS: ALBUTEROL/IPRATROPIUM 3 ML NEB NEB SCH ×5 (07:30→23:00)
[2017-08-14] MEDS: AMITRIPTYLINE HCL 25 MG TAB PO SCH ×2 (08:26→16:51)
[2017-08-14] MEDS: APIXABAN 5 MG TABLET PO SCH ×2 (08:26→20:07)
[2017-08-14] MEDS: VERAPAMIL HCL 120 MG TABSR PO SCH (08:26)
[2017-08-14] MEDS: FUROSEMIDE 40 MG TAB PO SCH (08:26)
[2017-08-14] MEDS: MONTELUKAST SODIUM 10 MG TAB PO SCH (08:26)
[2017-08-14] MEDS: PANTOPRAZOLE SOD 40 MG TABEC PO SCH (08:26)
[2017-08-14] MEDS ORDERED: AMIODARONE HCL200 MG PO (12:52)
[2017-08-14] MEDS: DOCUSATE SODIUM 100 MG CAP PO SCH (16:51)
[2017-08-15] VITALS (9 sets, daily range): BP systolic 112–147; BP diastolic 57–86
[2017-08-15] MEDS: AZITHROMYCIN 500MG/NS 250 ML 250 ML IV SCH (03:00)
[2017-08-15] MEDS: ALBUTEROL/IPRATROPIUM 3 ML NEB NEB SCH ×6 (03:00→23:17)
[2017-08-15] MEDS: CEFTRIAXONE SOD 1 GM VIAL IV SCH (03:00)
[2017-08-15] MEDS: SALMETEROL XINAFOATE SCH ×2 (07:00→19:00)
[2017-08-15 08:05] LABS: BASOPHILS % 0.2 % (0.0-1.0); EOSINOPHILS # (AUTO) 0.1 (0.0-0.4); EOSINOPHILS % 2.2 % (0.0-6.0); HEMATOCRIT 31.1 % (34.2-44.1); HEMOGLOBIN 10.3 g/dL (12.0-16.0); LYMPHOCYTES # (AUTO) 2.3 (1.0-3.2); LYMPHOCYTES % 44.7 % (18.0-39.1); MEAN CORPUSCULAR HEMOGLOBIN 31.9 pg (28-32); MEAN CORPUSCULAR HGB CONC 33.1 g/dL (31-35); MEAN CORPUSCULAR VOLUME 96.3 fL (81-99); MONOCYTES # (AUTO) 0.5 (0.2-0.8); MONOCYTES % 9.8 % (4.4-11.3); NEUTROPHILS # (AUTO) 2.2 (2.1-6.9); NEUTROPHILS % 42.5 % (38.7-80.0); PLATELET COUNT 279 x10e3/uL (140-360); RED BLOOD COUNT 3.23 x10e6/uL (3.6-5.1); RED CELL DISTRIBUTION WIDTH 13.7 % (11.7-14.4)
[2017-08-15] MEDS: PANTOPRAZOLE SOD 40 MG TABEC PO SCH (08:15)
[2017-08-15] MEDS: AMITRIPTYLINE HCL 25 MG TAB PO SCH ×2 (08:15→17:28)
[2017-08-15] MEDS: FUROSEMIDE INJ 10 MG/ML 4 ML VIAL IV SCH (08:15)
[2017-08-15] MEDS: APIXABAN 5 MG TABLET PO SCH ×2 (08:15→20:20)
[2017-08-15] MEDS: DOCUSATE SODIUM 100 MG CAP PO SCH (08:15)
[2017-08-15] MEDS: MONTELUKAST SODIUM 10 MG TAB PO SCH (08:15)
[2017-08-15] MEDS: VERAPAMIL HCL 120 MG TABSR PO SCH (08:15)
[2017-08-15 08:23] LABS: ANION GAP 12.7 mmol/L (8-16); CALCIUM 9.1 mg/dL (8.4-10.2); CREATININE, SERUM 1.02 mg/dL (0.57-1.11); POTASSIUM 3.7 mmol/L (3.5-5.1)
[2017-08-15] MEDS: FUROSEMIDE 40 MG TAB PO SCH (09:00)
[2017-08-15] MEDS: ACETAMINOPHEN 325 MG TAB PO PRN (17:28)
[2017-08-15] MEDS: AMIODARONE HCL 200 MG TAB PO SCH (20:20)
[2017-08-16] VITALS: BP 128/64
[2017-08-16] MEDS: AZITHROMYCIN 500MG/NS 250 ML 250 ML IV SCH (03:00)
[2017-08-16] MEDS: CEFTRIAXONE SOD 1 GM VIAL IV SCH (03:00)
[2017-08-16] MEDS: ALBUTEROL/IPRATROPIUM 3 ML NEB NEB SCH ×6 (03:08→22:48)
[2017-08-16 04:00] VITALS: BP 146/67
[2017-08-16] MEDS: SALMETEROL XINAFOATE SCH ×2 (07:00→19:00)
[2017-08-16 08:00] VITALS: BP 121/68
[2017-08-16] MEDS: FUROSEMIDE 40 MG TAB PO SCH (09:00)
[2017-08-16] MEDS: FUROSEMIDE INJ 10 MG/ML 4 ML VIAL IV SCH (09:00)
[2017-08-16] MEDS: MONTELUKAST SODIUM 10 MG TAB PO SCH (09:00)
[2017-08-16] MEDS: PANTOPRAZOLE SOD 40 MG TABEC PO SCH (09:00)
[2017-08-16] MEDS: AMITRIPTYLINE HCL 25 MG TAB PO SCH ×2 (09:00→17:16)
[2017-08-16] MEDS: DOCUSATE SODIUM 100 MG CAP PO SCH (09:00)
[2017-08-16] MEDS: VERAPAMIL HCL 120 MG TABSR PO SCH (09:00)
[2017-08-16] MEDS: APIXABAN 5 MG TABLET PO SCH ×2 (09:00→21:00)
[2017-08-16 16:00] VITALS: BP 120/68
--- NOTE | 2017-08-16 16:06 | Progress Note ---
DATE: August 16, 2017 INTERNAL MEDICINE PROGRESS NOTE SUBJECTIVE: Patient is doing better now. No significant complaints. PHYSICAL EXAM: HEART: Regular rhythm. No murmur, no extra sounds. LUNGS: Clear bilaterally. ABDOMEN: Soft. EXTREMITIES: Show no evidence of cyanosis, edema or trauma. FINAL IMPRESSION: 1. Bilateral pneumonia. 2. Chronic atrial fibrillation. 3. Acute on chronic systolic and diastolic congestive heart failure. 4. Anemia of chronic disease. PLAN OF TREATMENT: Continue albuterol and Atrovent q.4 h. Zithromax 250 mg IV once a day. Rocephin 1 gram IV piggyback daily. Eliquis 5 mg twice a day. Protonix 40 mg daily. Amitriptyline 25 mg twice a day. Furosemide 40 mg daily. Zofran 4 mg IV q.4 h. as needed. Furosemide 40 mg daily. Amiodarone 100 mg at bedtime. Verapamil 120 mg daily. Singulair 10 mg daily. Colace 100 mg daily. On the BMP, sodium 137, potassium 3.7, chloride 96, CO2 32. BUN 18, creatinine 1.02, glucose 111. On the CBC white blood count 5.10, hemoglobin 10.3, hematocrit 31.1, platelet count 279,000. PT 15.6, INR 1.134, PTT 32.8. AST 20, ALT 40, total bilirubin 0.5, alkaline phosphatase 95. Job#: [id number]
[2017-08-16 20:19] VITALS: BP 126/64
[2017-08-16] MEDS: AMIODARONE HCL 200 MG TAB PO SCH (21:00)
[2017-08-17] VITALS: BP 115/60
[2017-08-17] MEDS: ALBUTEROL/IPRATROPIUM 3 ML NEB NEB SCH ×6 (03:00→23:48)
[2017-08-17] MEDS: AZITHROMYCIN 500MG/NS 250 ML 250 ML IV SCH (03:00)
[2017-08-17] MEDS: CEFTRIAXONE SOD 1 GM VIAL IV SCH (03:00)
[2017-08-17 04:50] VITALS: BP 115/60
[2017-08-17 07:36] LABS: ANION GAP 12.3 mmol/L (8-16); CALCIUM 9.2 mg/dL (8.4-10.2); CREATININE, SERUM 1.12 mg/dL (0.57-1.11); MAGNESIUM 1.7 MG/DL (1.3-2.1); POTASSIUM 4.3 mmol/L (3.5-5.1)
[2017-08-17 08:00] VITALS: BP_SYST 115; BP_SYST 145; BP_DIAS 60; BP_DIAS 64
[2017-08-17] MEDS: VERAPAMIL HCL 120 MG TABSR PO SCH (08:38)
[2017-08-17] MEDS: FUROSEMIDE 40 MG TAB PO SCH (08:39)
[2017-08-17] MEDS: APIXABAN 5 MG TABLET PO SCH ×2 (08:39→21:06)
[2017-08-17] MEDS: PANTOPRAZOLE SOD 40 MG TABEC PO SCH (08:39)
[2017-08-17] MEDS: DOCUSATE SODIUM 100 MG CAP PO SCH (08:39)
[2017-08-17] MEDS: AMITRIPTYLINE HCL 25 MG TAB PO SCH ×2 (08:39→16:29)
[2017-08-17] MEDS: MONTELUKAST SODIUM 10 MG TAB PO SCH (08:39)
--- NOTE | 2017-08-17 11:48 | Diagnostic Imaging Report ---
PROCEDURE: Frontal and lateral views of the chest. COMPARISON: Patients [facility], , CHEST 2 VIEWS, 08/13/2017, 8:29. INDICATIONS: COUGH, SHORTNESS OF BREATH, PNEUMONIA FINDINGS: Lines/tubes: None. Lungs: The lungs are well-inflated. Bilateral perihilar, peribronchial thickening perihilar streaky densities. Mild coarsening of the pulmonary interstitium in the lower lobes. Patchy density in the right lung base medially is again observed and may represent developing pneumonia in the proper clinical setting. Pleura: There is no pleural effusion or pneumothorax. Heart and mediastinum: The heart and the mediastinum are normal. Bones: No acute bony abnormality. IMPRESSION: 1. Findings suggestive of a viral infection versus reactive airway disease, with possible superimposed consolidative pneumonia in the right lung base medially. Jorge Quintana M.D. Dictated by: Jorge Quintana M.D. on 08/17/2017 at 11:49 Electronically approved by: Jorge Quintana M.D. on 08/17/2017 at 11:49
[2017-08-17 12:00] VITALS: BP 139/71
[2017-08-17 16:00] VITALS: BP 123/58
[2017-08-17] MEDS: AMIODARONE HCL 200 MG TAB PO SCH (21:06)
[2017-08-17 21:12] VITALS: BP 171/96
[2017-08-18] VITALS: BP 128/60
[2017-08-18] MEDS: ALBUTEROL/IPRATROPIUM 3 ML NEB NEB SCH ×3 (03:55→11:00)
[2017-08-18 04:00] VITALS: BP 110/53
[2017-08-18 07:19] VITALS: BP 110/53
[2017-08-18 08:01] VITALS: BP 99/67
[2017-08-18] MEDS: FUROSEMIDE 40 MG TAB PO SCH (09:00)
[2017-08-18] MEDS: PANTOPRAZOLE SOD 40 MG TABEC PO SCH (09:00)
[2017-08-18] MEDS: MONTELUKAST SODIUM 10 MG TAB PO SCH (09:00)
[2017-08-18] MEDS: AMITRIPTYLINE HCL 25 MG TAB PO SCH (09:00)
[2017-08-18] MEDS: DOCUSATE SODIUM 100 MG CAP PO SCH (09:00)
[2017-08-18] MEDS: APIXABAN 5 MG TABLET PO SCH (09:00)
[2017-08-18] MEDS: VERAPAMIL HCL 120 MG TABSR PO SCH (09:00)
[2017-08-18] MEDS ORDERED: KEFLEX500 MG PO (11:16)
[2017-08-18] MEDS ORDERED: IPRATROPIU0.2 MG/1 M NEB (11:18)
[2017-08-18] MEDS ORDERED: MEDRO DOSE PACK (11:22)
[2017-08-18 12:13] VITALS: BP 155/77
== END 2017-08-18 12:30 | disposition home or self-care (01) | DRG 291 ==
LOC: ER 22:11 → ERHOLD 08-11 03:37 → MED/SURG2 08-11 22:24
DX: I11.0 Hypertensive heart disease with heart failure (principal); J18.9 Pneumonia, unspecified organism; I48.91 Unspecified atrial fibrillation; D63.8 Anemia in other chronic diseases classified elsewhere; I50.43 Acute on chronic combined systolic (congestive) and diastolic (congestive) heart failure; I25.10 Atherosclerotic heart disease of native coronary artery without angina pectoris
CPT/HCPCS: 36415; 71046; 80048; 80053; 81001; 82550; 82553; 82948; 83605; 83735; 83880; 84484; 85025; 85610; 85730; 87040; 87086; 87400; 93005; 94640; 96376; 99284; J0456; J0696; J1940; J2405; J7030

== ENCOUNTER 2017-08-28 04:54 | Inpatient (IN) | payer MEDICARE, OTHER ==
[2017-08-28] VITALS (7 sets, daily range): BP systolic 109–133; BP diastolic 55–64
[~2017-08-28] VITALS: Ht 165.1 cm; Wt 88.1 kg
[~2017-08-28 04:54] MED LIST changes: +AMIODARONE HCL200 MG PO; +IPRATROPIU0.2 MG/1 M NEB; +KEFLEX500 MG PO; +MEDRO DOSE PACK
--- OUTSIDE RECORDS SUMMARY | 2017-08-28 04:57 | XMS REPORT | Continuity of Care Document ---
Author Author [facility] Organization [facility] Address [address] [place] [address] Phone Unavailable Care Team Providers Care Lead Case Manager Name Role Phone DEBORAH CARREON MD PCP Insurance Providers Guarantor Jie Farmer Vince Address [address] [place], [place] [id number] Email Payer Medicare A & B Policy Number [id number] Subscriber's Name Jie Farmer Relationship 18 Self / Same As Patient Group Name RETIRED Effective Date 01 Payer [employer] [facility] Care Policy Number [id number] Subscriber's Name Jie Farmer Relationship 18 Self / Same As Patient Group Number [id number] Group Name [employer] G Effective Date 97 Advance Directives Directive Response Recorded Date/Time Does the patient have an advance directive? No 08/11/17 11:00pm If yes, is advance directive on file with [facility]? No 08/11/17 11:00pm If not on file with [facility] will patient provide a copy? No 08/11/17 11:00pm Do you have a Directive to Physician? No 08/10/17 10:07pm Do you have a Medical Power of Hand Coremaker? No 08/10/17 10:07pm Do you have an out of hospital Do Not Resuscitate Order? No 08/10/17 10:07pm Do you have any special needs we should be aware of? No 08/10/17 10:07pm Do you have a support person here with you today? Yes 08/10/17 10:08pm Did patient receive Notice of Privacy Practices? Yes 08/10/17 10:08pm Did patient receive patient rights and responsibilities? Yes 08/10/17 10:08pm Problems Medical Problem Onset Date Status Atrial fib/flutter, transient 06/25/2014 Acute Atrial fibrillation with RVR 06/25/2014 Acute Atrial fibrillation, new onset 06/25/2014 Acute Bronchitis Unknown CHF (congestive heart failure) Unknown Pneumonia Unknown Medications Current Home Medications Medication Dose Units Route Directions Days Qty Instructions Start Date Amiodarone Hcl 200 Mg Tablet 100 Mg Oral Bedtime Amitriptyline Hcl 25 Mg Tablet 25 Mg Oral Twice A Day 30 Tab Cephalexin Monohydrate (Keflex) 500 Mg Capsule Mg Oral Three Times A Day 30 Eliquis 5 Mg Oral Daily Esomeprazole Magnesium (Nexium) 40 Mg Capsule.dr 40 Mg Oral Daily Furosemide (Lasix) 40 Mg Tablet 40 Mg Oral Daily 30 Tab Ipratropium [place] 0.2 Mg/1 Ml Solution 2.5 Ml Nebullizer Medro Dose Pack Metoprolol Succinate 50 Mg Tab.er.24h 50 Mg Oral Twice A Day Montelukast Sodium (Singulair) 10 Mg Tablet 10 Mg Oral Daily Potassium Chloride 10 Meq Tab.er.prt 2 Tab.sa Oral Daily Salmeterol Xinafoate (Serevent Diskus) 50 Mcg Disk.w.dev 1 Inh Inhalation As Needed as needed for Shortness Of Breath Verapamil Hcl (Verelan) 240 Mg Cap24h.pel 120 Mg Oral Daily Past Home Medications Medication Directions Ordered Status Amitriptyline Hcl 25 Mg Tablet, 25 Mg Oral Daily Discontinued Elavil , 25 Mg Oral Daily Discontinued Elavil , 25 Mg Oral Daily Discontinued Esomeprazole Magnesium (Nexium) 20 Mg Capsule.dr, 40 Mg Oral Daily Discontinued Metformin Hcl (Glucophage) 500 Mg Tablet, 500 Mg Oral As Needed Discontinued Montelukast Sodium (Singulair) 4 Mg Tab.chew, 4 Mg Oral Daily Discontinued Montelukast Sodium 10 Mg Tablet, 10 Mg Oral Daily Discontinued Salmeterol Xinafoate (Serevent Diskus) 50 Mcg Disk.w.dev, 50 Mcg Inhalation As Needed Discontinued Sulfamethoxazole/Trimethoprim (Bactrim Ds Tablet) 1 Each Tablet, 1 Tab Oral 3XWK Discontinued Social History Social History Problem Response Recorded Date/Time Onset Date Status Hx Psychiatric Problems No 08/11/2017 11:00pm Not Applicable Not Applicable Hx Eating Disorder No 08/11/2017 11:00pm Not Applicable Not Applicable Hx Substance Use Disorder No 08/11/2017 11:00pm Not Applicable Not Applicable Hx Depression Yes 08/11/2017 11:00pm Not Applicable Not Applicable Hx Alcohol Use No 08/11/2017 11:00pm Not Applicable Not Applicable Hx Substance Use Treatment No 08/11/2017 11:00pm Not Applicable Not Applicable Hx Physical Abuse No 08/11/2017 11:00pm Not Applicable Not Applicable Smoking Status Start Date Stop Date Never Smoker Hospital Discharge Instructions No hospital discharge instruction information available. Plan of Care Discharge Date 08/18/17 12:30pm Disposition HOME, SELF-CARE Instructions/Education Provided Pneumonia - Bacterial Prescriptions See Medication Section Referrals DEBORAH CARREON MD (Internal Medicine) Order Date: 2 Weeks Entered Date: 08/18/2017 11:24am Address: [address] [place], [place] [id number] Additional Instructions/Education REGULAR DIET ACTIVITY TOLERATED Functional Status Query Response Date Recorded FUNCTIONAL STATUS . August 17, 2017 3:25pm Assistive Devices None August 11, 2017 11:00pm Toileting Ability Independent August 17, 2017 5:40pm Allergies, Adverse Reactions, Alerts Allergen Type Severity Reaction Status Last Updated Codeine Allergy Mild SOB, TONGUE SWELLING, DRY MOUTH,DIZZINESS Active Immunizations No immunization information available. Vital Signs Acute Vital Signs Vital Response Date/Time Temperature (Fahrenheit) 97.8 degrees F (97.6 - 99.5) 08/18/2017 12:13pm Pulse Pulse Rate (adult) 95 bpm (60 - 90) 08/18/2017 12:13pm Respiratory Rate 18 bpm (12 - 24) 08/18/2017 12:13pm Blood Pressure 155/77 mm Hg 08/18/2017 12:13pm Height 5 ft 8 in 08/12/2017 5:17am Weight 198 lb 08/16/2017 12:28am Body Mass Index 30.1 kg/m^2 08/16/2017 12:28am Results Laboratory Results Test Name Result Units Flags Reference Collection Date/Time Result Date/ Time Comments White Blood Count 5.10 x10e3/uL 4.8-10.8 08/15/2017 6:08/15/2017 8 :11am Red Blood Count 3.23 x10e6/uL L 3.6-5.1 08/15/2017 6:08/15/2017 8: 11am Hemoglobin 10.3 g/dL L 12.0-16.0 08/15/2017 6:08/15/2017 8:11am Hematocrit 31.1 % L 34.2-44.1 08/15/2017 6:08/15/2017 8:11am Mean Corpuscular Volume 96.3 fL 81-99 08/15/2017 6:08/15/2017 8: 11am Mean Corpuscular Hemoglobin 31.9 pg 28-32 08/15/2017 6:08/15/2017 8:11am Mean Corpuscular Hemoglobin Concent 33.1 g/dL 31-35 08/15/2017 6:08/15/2017 8:11am Red Cell Distribution Width 13.7 % 11.7-14.4 08/15/2017 6:2017 8:11am Platelet Count 279 x10e3/uL 140-360 08/15/2017 6:08/15/2017 8: 11am Neutrophils (%) (Auto) 42.5 % 38.7-80.0 08/15/2017 6:08/15/2017 8: 11am Lymphocytes (%) (Auto) 44.7 % H 18.0-39.1 08/15/2017 6:08/15/2017 8 :11am Monocytes (%) (Auto) 9.8 % 4.4-11.3 08/15/2017 6:08/15/2017 8: 11am Eosinophils (%) (Auto) 2.2 % 0.0-6.0 08/15/2017 6:08/15/2017 8: 11am Basophils (%) (Auto) 0.2 % 0.0-1.0 08/15/2017 6:08/15/2017 8:11am IM GRANULOCYTES % 0.6 % 0.0-1.0 08/15/2017 6:08/15/2017 8:11am Neutrophils # (Auto) 2.2 2.1-6.9 08/15/2017 6:08/15/2017 8:11am Lymphocytes # (Auto) 2.3 1.0-3.2 08/15/2017 6:08/15/2017 8:11am Monocytes # (Auto) 0.5 0.2-0.8 08/15/2017 6:08/15/2017 8:11am Eosinophils # (Auto) 0.1 0.0-0.4 08/15/2017 6:08/15/2017 8:11am Basophils # (Auto) 0.0 0.0-0.1 08/15/2017 6:08/15/2017 8:11am Absolute Immature Granulocyte (auto 0.03 x10e3/uL 0-0.1 08/15/2017 6: 08/15/2017 8:11am Prothrombin Time 15.6 seconds H 11.9-14.5 08/10/2017 10:47pm 08/11/2017 12:25am Prothromb Time International Ratio 1.34 08/10/2017 10:47pm 2017 12:25am Oral Anticoagulant Therapy INR Values: 1. Low Intensity Therapy 1.5 - 2.0 2. Moderate Intensity Therapy 2.0 - 3.0 3. High Intensity Therapy(1) 2.5 - 3.5 4. High Intensity Therapy(2) 3.0 - 4.0 5. Panic Value INR > 5.0 Activated Partial Thromboplast Time 32.8 seconds 23.8-35.5 08/10/2017 10 :47pm 08/11/2017 12:25am Urine Color YELLOW YELLOW 08/11/2017 1:00am 08/11/2017 1:33am Urine Clarity CLEAR CLEAR 08/11/2017 1:00am 08/11/2017 1:33am Urine Specific [place] 1.015 1.010-1.025 08/11/2017 1:00am 2017 1:33am Urine pH 5 5 - 7 08/11/2017 1:00am 08/11/2017 1:33am Urine Leukocyte Esterase TRACE H NEGATIVE 08/11/2017 1:00am 2017 1:33am Urine Nitrite NEGATIVE NEGATIVE 08/11/2017 1:00am 08/11/2017 1:33am Urine Protein NEGATIVE NEGATIVE 08/11/2017 1:00am 08/11/2017 1:33am Urine Glucose (UA) NEGATIVE NEGATIVE 08/11/2017 1:00am 08/11/2017 1: 33am Urine Ketones NEGATIVE NEGATIVE 08/11/2017 1:00am 08/11/2017 1:33am Urine Urobilinogen 0.2 mg/dL 0.2 - 1 08/11/2017 1:00am 08/11/2017 1: 33am Urine Bilirubin NEGATIVE NEGATIVE 08/11/2017 1:00am 08/11/2017 1: 33am Urine Blood NEGATIVE NEGATIVE 08/11/2017 1:00am 08/11/2017 1:33am Urine WBC 0-5 /HPF 0-5 08/11/2017 1:00am 08/11/2017 1:51am Urine RBC NONE /HPF 0-5 08/11/2017 1:00am 08/11/2017 1:51am Urine Bacteria RARE /HPF NONE 08/11/2017 1:00am 08/11/2017 1:51am Urine Epithelial Cells RARE /LPF NONE 08/11/2017 1:00am 08/11/2017 1: 51am Urine Calcium Oxalate Crystals FEW FEW 08/11/2017 1:00am 08/11/2017 1 :51am Sodium Level 139 mmol/L 136-145 08/17/2017 6:23am 08/17/2017 7:41am Potassium Level 4.3 mmol/L 3.5-5.1 08/17/2017 6:23am 08/17/2017 7:41am Chloride Level 98 mmol/L 98-107 08/17/2017 6:23am 08/17/2017 7:41am Influenza Virus Types A,B Antigen NEGATIVE NEGATIVE 08/11/2017 1:00am 08/11/2017 1:44am Carbon Dioxide Level 33 mmol/L H 22-29 08/17/2017 6:23am 08/17/2017 7: 41am Anion Gap 12.3 mmol/L 8-16 08/17/2017 6:2308/17/2017 7:41am Blood Urea Nitrogen 23 mg/dL 7-08/17/2017 6:2308/17/2017 7:41am Creatinine 1.12 mg/dL H 0.57-1.11 08/17/2017 6:23am 08/17/2017 7:41am BUN/Creatinine Ratio 21 6-25 08/17/2017 6:23am 08/17/2017 7:41am Estimat Glomerular Filtration Rate 47 ML/MIN L 60- 08/17/2017 6:2306/2017 7:41am Ranges were taken from the National Kidney Disease Education Program and the National Kid[employer] literature. Reference ranges: 60 or greater: Normal 16-59 (for 3 consecutive months): Chronic kidney disease 15 or less: Kidney failure Glucose Level 122 mg/dL H 74-118 08/17/2017 6:23am 08/17/2017 7:41am Calcium Level 9.2 mg/dL 8.4-10.2 08/17/2017 6:23am 08/17/2017 7:41am Bedside Glucose 116 mg/dL 70-120 08/12/2017 7:23am 08/12/2017 7:47am Meter ID: [id number] Lactic Acid Level 13.8 MG/DL 4.5-19.8 08/10/2017 10:47pm 08/10/2017 11: 54pm Magnesium Level 1.7 MG/DL 1.3-2.1 08/17/2017 6:23am 08/17/2017 7:41am Total Bilirubin 0.5 mg/dL 0.2-1.2 08/10/2017 10:47pm 08/11/2017 12: 00am Aspartate Amino Transf (AST/SGOT) 20 IU/L 5-34 08/10/2017 10:47pm 08/11 12:00am Alanine Aminotransferase (ALT/SGPT) 14 IU/L 0-55 08/10/2017 10:47pm 12:00am Total Protein 7.2 g/dL 6.5-8.1 08/10/2017 10:47pm 08/11/2017 12:00am Albumin 3.3 g/dL L 3.5-5.0 08/10/2017 10:47pm 08/11/2017 12:00am Globulin 3.9 g/dL H 2.3-3.5 08/10/2017 10:47pm 08/11/2017 12:00am Albumin/Globulin Ratio 0.8 0.8-2.0 08/10/2017 10:47pm 08/11/2017 12: 00am Alkaline Phosphatase 95 IU/L 40-150 08/10/2017 10:47pm 08/11/2017 12: 00am B-Type Natriuretic Peptide 283.0 pg/mL H 0-100 08/13/2017 6:07am 2017 7:19am Creatine Kinase 71 IU/L 29-168 08/12/2017 2:40am 08/12/2017 3:07am Creatine Kinase MB 1.20 ng/mL 0-5.0 08/12/2017 2:40am 08/12/2017 3: 14am Troponin I 0.007 ng/mL 0-0.300 08/12/2017 2:40am 08/12/2017 3:14am Microbiology Results Procedure Source Organism/Result Collection Date/Time Result Date/Time Result Status Blood Culture Blood NO GROWTH AFTER 5 DAYS, FINAL REPORT 08/10/2017 10: 47pm 08/15/2017 11:25pm Final Procedures Procedure Status Date Provider(s) X-ray of chest, two views Active 08/10/17 CAITLIN WRIGHT MD X-ray of chest, two views Active 08/13/17 DEBORAH CARREON MD X-ray of chest, two views Active 08/17/17 DEBORAH CARREON MD Encounters Encounter Location Arrival/Admit Date Discharge/Depart Date Attending Provider Discharged Inpatient [facility] 08/11/17 3:37am 08/18/17 12:30pm DEBORAH CARREON MD
--- OUTSIDE RECORDS SUMMARY | 2017-08-28 04:57 | XMS REPORT | Clinical Summary ---
Author Author [facility] Organization [facility] Address Unknown Phone Unavailable Care Team Providers Care Clerical Aide Teacher Name Role Phone Mera Ward MD PCP [...] Patient Quality Sofía Padilla RN Outreach 11/02/2016 [facility] Obstetrics and Gynecology Grant Montejo Pneumonia of both lower - Encounter MD Jon lobes due to infectious 11/08/2016 Magaly Villalobos MD organism (Primary Dx) 09/24/2016 Anesthesia Procedural Cardiology Robert Villalobos Event 09/24/2016 Procedure Pass Procedural Cardiology 09/22/2016 [facility] Cardiology CaballeroRoberto, Pneumonia of both lungs - Encounter DO due to infectious 09/26/2016 Charlotte Villalobos MD organism, unspecified part of lung (Primary Dx); Sepsis, due to unspecified organism; Atrial fibrillation with RVR; Mild intermittent asthma with acute exacerbation after 08/27/2016 Family History Medical History Relation Name Comments [...] 65 AND OVER PNEUMOCOCCAL-13 2002 INFLUENZA VACCINE 12/16/2017 Procedures Procedure Name Priority Date/Time Associated Diagnosis Comments ECHOCARDIOGRAM 2D Routine 11/06/2016 Results for this COMPLETE W MMODE SPECTRAL 10:31 AM CDT procedure are in the COLOR DOPPLER (23552) results section. ECHOCARDIOGRAM 2D Routine 09/23/2016 Results for this COMPLETE W MMODE SPECTRAL 11:24 PM CDT procedure are in the COLOR DOPPLER (26484) results section. [facility], E/M Routine 09/23/2016 Results for this 30-74 MINUTES 5:41 AM CDT procedure are in the results section. after 08/27/2016 Results * POC glucose (11/08/2016 12:25 PM) Only the most recent of 9 results within the time period is included. Component Value Ref Range POC glucose 254 (H) 65 - 99 mg/dL Comment: [facility] Notified RN Meter ID: [id number] Broke Beater Operator: Wayne Jason Specimen Performing Laboratory [facility] DEPARTMENT OF PATHOLOGY AND GENOMIC MEDICINE [address] [place], [place] [id number] * Estimated GFR (11/08/2016 4:00 AM) Only [...] and Americans. Specimen Performing Laboratory Plasma specimen [facility] DEPARTMENT OF PATHOLOGY AND GENOMIC MEDICINE [address] [place] [address] * Basic metabolic panel (11/08/2016 4:00 AM) [...] 10.2 mg/dL Specimen Performing Laboratory Plasma specimen [facility] DEPARTMENT OF PATHOLOGY AND [address] [address] * Phosphorus level (11/07/2016 4:25 AM) Only the most recent of 5 results within the time period is included. Component Value Ref Range Phosphorus 3.6 2.4 - 4.5 mg/dL Specimen Performing Laboratory Plasma specimen [facility] DEPARTMENT OF PATHOLOGY AND [address] [address] * B natriuretic peptide (11/07/2016 4:25 AM) Only the most recent of 5 results within the time period is included. Component Value Ref Range BNP 391 (H) 0 - 100 pg/mL Specimen Performing Laboratory Blood [facility] PATHOLOGY AND [address] [address] * Magnesium level (11/07/2016 4:25 AM) Only the most recent of 6 results within the time period is included. Component Value Ref Range Magnesium 1.9 1.6 - 2.4 mg/dL Specimen Performing Laboratory Plasma specimen [facility] PATHOLOGY AND [address] [address] * Hemoglobin A1c (11/07/2016 4:25 AM) Component [...] type 1 diabetes. Specimen Performing Laboratory Blood [facility] PATHOLOGY AND [address] [address] * Hepatic function panel (11/07/2016 4:25 AM) [...] 35 U/L Specimen Performing Laboratory Plasma specimen [facility] DEPARTMENT OF PATHOLOGY AND GENOMIC MEDICINE [address] [place] [address] * XR Chest 1 Vw (11/06/2016 5:25 PM) Specimen Performing Laboratory [facility] [address] [place] [address] Narrative EXAMINATION:XR CHEST 1 VW CLINICAL HISTORY:Cough [...] (11/06/2016 10:31 AM) Specimen Performing Laboratory [facility] [address] [place] [address] Narrative Echocardiography Report [address] [place] [address] Pat.Name:CATY FARMER Pat.ID:[id number] .Date: 11/06/2016 Refer.MD:MAGALY VILLALOBOS MD Exam Time: 9:47:00 AMStudy Type:Routine Echo Height:64.96in Weight:184lb BSA: 1.91 m2 DOBAge:[age]Y Sex: FEMALEBP: 138/65 Sonogrphr: BONILLA JARA, RDSHUN, STAN/Adelso Mcdowell MD Pat. Stat.:Inpatient Room:X913Immsi Status:Final Echo Event ID:[id number] Order ID:[id number] Reason for Study:HF; initial eval with symptoms [...] RAPof 5 mmHg. MEASUREMENTS: 2D Parasternal [place] LVOT 2 cmLA Ds 3.6 cm LVIDd5.4 cmIndex 2.8 cm/m Ao An2 cm LVIDs3.9 cmAo Rtd 3.2 cm Index1.7 cm/m LV%fs 28.9 % LV Mass 149.7 g(87-129) IVSd 0.7 cmLVM Index 78.4 g/m2 LVPWd0.9 cmRWT 0.3 LV EF SinglePlane LV Ad 35.4 cm2(9.5-22.3) LV EF 55.4 %(55-75) IYTJX447.4 ml (59-136) Index66.2 ml/m HR54 bpm LV [...] - 11/06/2016 3:45 PM CDT Echocardiography Report [address] [place] [address] Pat.Name: CATY FARMER.ID: [id number] .Date: 11/06/2016 Refer.MD: MAGALY VILLALOBOS MD Exam Time: 9:47:00 AM Study Type:Routine Echo Height: 64.96in Weight: 184lb BSA: 1.91 m2 Age: 8 1935,81Y Sex: FEMALE BP: 138/65 Sonogrphr: EWNDI QUINTEROS, RCS, RDCS, [facility]/Adelso Mcdowell MD Pat. Stat.:Inpatient Room: M632 Study Status:Final Echo Event ID:[id number] Order ID: [id number] Reason for Study:HF; initial eval with symptoms [...] of 5 mmHg. MEASUREMENTS: 2D Parasternal [place] LVOT 2 cm LA Ds 3.6 cm [...] Renal (11/05/2016 9:22 AM) Specimen Performing Laboratory [address] [address] Narrative EXAM: RENAL CLINICAL DATA:HYDRONEPHROSIS, does not [...] IMPRESSION: 1. Renal ultrasound findings as above. [facility]-[id number] Procedure Note Hm Interface, Radiology Results Incoming [...] IMPRESSION: 1. Renal ultrasound findings as above. [facility]-[id number] * Angiotensin converting enzyme (11/05/2016 7:01 AM) Component Value Ref Range Angiotensin converting 44 9 - 67 U/L enzyme Comment: Performed by [facility], [address] [place] [id number] [email or web address], Harpal Grigsby MD - Lab. Director Specimen Performing Laboratory Serum [facility] [address] [place] [address] * Urinalysis screen and microscopy, with reflex [...] UA 1 /LPF Specimen Performing Laboratory Urine [facility] DEPARTMENT OF PATHOLOGY AND [facility] [address] [place] [address] * Protein, urine, random (11/05/2016 6:30 AM) Component Value Ref Range Protein, urine random 36 mg/dL Specimen Performing Laboratory Urine [facility] DEPARTMENT OF PATHOLOGY AND [facility] [address] [place] [address] * Osmolality, urine (11/05/2016 6:30 AM) Component Value Ref Range Osmolality, urine 650 50 - 1,400 mOsm/kg Specimen Performing Laboratory Urine [facility] DEPARTMENT OF PATHOLOGY AND [address] [address] * Creatinine level, urine, random (11/05/2016 6:30 AM) Component Value Ref Range Creatinine, urine, random 137 mg/dL Specimen Performing Laboratory Urine [facility] [place] [address] * Urine culture (11/05/2016 6:30 AM) Only the most recent of 2 results within the time period is included. Component Value Ref Range Urine culture SEE COMMENTComment: Bacteriuria screen negative. Specimen Performing Laboratory [facility] DEPARTMENT OF PATHOLOGY AND [address] [address] * Total iron binding capacity (11/05/2016 5:05 AM) Component Value Ref Range Iron level 54 37 - 145 ug/dL Iron binding capacity 209 200 - 400 ug/dL % Saturation 25.8 15.0 - 38.0 % Specimen Performing Laboratory Plasma specimen [facility] [place] [address] * Immunofixation, serum (11/05/2016 5:05 AM) Component Value Ref Range Immunofixation, serum SEE COMMENTComment: See electrophoresis report below. Specimen Performing Laboratory Serum [facility] PATHOLOGY [address] [address] * Vitamin D 25 hydroxy level (11/05/2016 [...] for alternative methods. Specimen Performing Laboratory Blood [facility] DEPARTMENT OF PATHOLOGY AND GENOMIC MEDICINE [address] [place] [address] * Reticulocyte count (11/05/2016 5:05 AM) Component Value Ref Range Retic %, auto 1.5 0.5 - 2.1 % Retic absolute, auto 0.0502 0.0210 - 0.1155 m/uL Specimen Performing Laboratory [facility] DEPARTMENT OF PATHOLOGY AND GENOMIC MEDICINE [address] [place] [address] * CBC with platelet and differential (11/05/2016 [...] (promyelocytes, myelocytes, metamyelocytes) Specimen Performing Laboratory Blood [facility] DEPARTMENT OF PATHOLOGY AND GENOMIC MEDICINE [address] [place] [address] * Serum electrophoresis (11/05/2016 5:05 AM) Component [...] Schroeder MD, PhD Specimen Performing Laboratory Serum [facility] DEPARTMENT OF PATHOLOGY AND GENOMIC MEDICINE [address] [place] [address] * Ferritin level (11/05/2016 5:05 AM) Component Value Ref Range Ferritin level 201 (H) 13 - 150 ng/mL Specimen Performing Laboratory Plasma specimen [facility] DEPARTMENT OF PATHOLOGY AND GENOMIC MEDICINE [address] [place] [address] * Vitamin B12 level (11/05/2016 5:05 AM) Component Value Ref Range Vitamin B12 438 211 - 946 pg/mL Comment: Significant overlap exists between normal and deficiency states. However, most patients with deficiencies will have Serum B12 <200 pg/mL. Specimen Performing Laboratory Serum [facility] DEPARTMENT OF PATHOLOGY AND GENOMIC MEDICINE [address] [place] [address] * Vancomycin level, random (11/04/2016 10:00 PM) Component Value Ref Range Vancomycin, random 9.0 ug/mL Specimen Performing Laboratory Serum [facility] DEPARTMENT OF PATHOLOGY AND [facility] [address] [place] [address] * LDH (11/04/2016 4:36 AM) Only the most recent of 2 results within the time period is included. Component Value Ref Range LDH 134 87 - 225 U/L Specimen Performing Laboratory Plasma specimen [facility] DEPARTMENT [place] [address] * Streptococcus pneumoniae urinary antigen (11/03/2016 4:49 PM) Component Value Ref Range Strep pneumo urinary Ag Negative for Streptococcus pneumoniae antigen. Comment: Specimen Information Specimen Source: Urine Specimen Site: Random void Specimen Performing Laboratory Urine - Random void [facility] [place] [address] * Legionella urinary antigen (11/03/2016 4:49 PM) Component Value Ref Range Legionella urinary Negative for Legionella serogroup 1 antigen. antigen Comment: Specimen Information Specimen Source: Urine Specimen Site: Random void Specimen Performing Laboratory Urine - Random void [facility] DEPARTMENT OF PATHOLOGY AND [facility] [address] [place] [address] * ECG 12 lead (11/03/2016 1:11 PM) Only the most recent of 5 results within the time period is included. Component Value Ref Range Ventricular rate 133 Atrial rate 133 QRSD interval 110 QT interval 354 QTC interval 526 QRS axis 1 68 T wave axis -38 EKG impression Sinus tachycardia with short [place]-Low voltage QRS-Nonspecific ST and T wave abnormality-Prolonged QT-Abnormal ECG-In automated comparison with ECG of 02-NOV-2016 16:00,-WV interval has decreased-ST now depressed in Inferior leads- Specimen Performing Laboratory [facility] MUSE [address] [place] [address] * Sputum culture (11/03/2016 12:40 PM) Component Value Ref Range Sputum culture isolate Normal oral brandee isolated. Comment: Specimen Information Specimen Source: Sputum Specimen Site: Expectorated Specimen Performing Laboratory Sputum - Expectorated [facility] DEPARTMENT OF PATHOLOGY AND [facility] [address] [place] [address] * Gram stain (11/03/2016 12:40 PM) Component Value Ref Range Gram stain isolate Many WBC's Few Gram positive rods Comment: Specimen Information Specimen Source: Sputum Specimen Site: Expectorated Specimen Performing Laboratory Sputum - Expectorated [facility] DEPARTMENT OF PATHOLOGY AND GENOMIC MEDICINE [address] [place] [address] * CT Chest Wo Contrast Abdomen Wo Contrast Pelvis Wo Contrast (11/03/2016 11:10 AM) Specimen Performing Laboratory [facility] [address] [place] [address] Narrative EXAMINATION:CT CHEST WO CONTRAST ABDOMEN WO [...] 1.6 cm. IMPRESSION: No mass or adenopathy. [id number] Procedure Note Hm Interface, Radiology Results Incoming [...] 1.6 cm. IMPRESSION: No mass or adenopathy. [id number] * Aspergillus Ab by CF, serum (11/03/2016 [...] titer against a single antigen. Performed by [facility], [address] [place] [address] [email or web address], Harpal Grigsby MD - Lab. Director Specimen Performing Laboratory Serum [address] [address] * IgG subclasses (11/03/2016 7:51 AM) Component Value Ref Range Immunoglobulin G subclass 688 240 - 1,118 mg/dL 1 Comment: REFERENCE INTERVAL: Immunoglobulin G Subclass 1 Access complete set of age- and/or gender-specific reference intervals for this test in the [facility] ([facility]). Immunoglobulin G subclass 346 124 - 549 mg/dL 2 Comment: REFERENCE INTERVAL: Immunoglobulin G Subclass 2 Access complete set of age- and/or gender-specific reference intervals for this test in the [facility] ([facility]). Immunoglobulin G subclass 120 21 - 134 mg/dL 3 Comment: REFERENCE INTERVAL: Immunoglobulin G Subclass 3 Access complete set of age- and/or gender-specific reference intervals for this test in the [facility] ([facility]). Immunoglobulin G subclass 36 1 - 123 mg/dL 4 Comment: The total IgG (mg/dL) can be derived by the sum of the subclasses IgG1, IgG2, IgG3 and IgG4 values. However, a confirmatory and more precise total IgG is available by the nephelometric method of total IgG (Test # [id number]). REFERENCE INTERVAL: Immunoglobulin G Subclass 4 Access complete set of age- and/or gender-specific reference intervals for this test in the [facility] ([facility]). Performed by [facility] [address] [email or web address], Harpal Grigsby MD - Lab. Director Specimen Performing Laboratory Serum [address] [address] * Immunoglobulin A (11/03/2016 7:51 AM) Component Value Ref Range IgA 218 70 - 400 mg/dL Specimen Performing Laboratory Plasma specimen [facility] DEPARTMENT OF PATHOLOGY AND GENOMIC MEDICINE [address] [place] [address] * Immunoglobulin M (11/03/2016 7:51 AM) Component Value Ref Range IgM 64 33 - 255 mg/dL Specimen Performing Laboratory Plasma specimen [facility] DEPARTMENT OF PATHOLOGY AND GENOMIC MEDICINE [address] [place] [address] * Respiratory pathogen panel (11/03/2016 1:25 AM) [...] Left Specimen Performing Laboratory Nares - Left [facility] DEPARTMENT OF PATHOLOGY AND GENOMIC MEDICINE [address] [place] [address] * Blood culture, aerobic & anaerobic (11/02/2016 9:55 PM) Only the most recent of 4 results within the time period is included. Component Value Ref Range Blood culture isolate No growth after 5 days of incubation. Comment: Specimen Information Specimen Source: Blood Specimen Site: Hand, digit right Specimen Performing Laboratory Blood - Hand, digit right [facility] DEPARTMENT OF PATHOLOGY AND GENOMIC MEDICINE [address] [place] [address] * Troponin (11/02/2016 8:30 PM) Only the [...] myocardial injury. Specimen Performing Laboratory Plasma specimen [facility] DEPARTMENT OF PATHOLOGY AND GENOMIC MEDICINE [address] [place] [address] * XR Chest 1 Vw Portable (11/02/2016 5:50 PM) Only the most recent of 2 results within the time period is included. [facility]imen [facility] [address] [place] [address] Narrative EXAMINATION:XR CHEST 1 VW PORTABLE CLINICAL HISTORY:Cough COMPARISON:09/22/2016 IMPRESSION: Heart and mediastinum are stable. Low lung volumes, with mild left basilar patchy opacities and no definite new consolidations. [facility]-[id number] Procedure Note Hm Interface, Radiology Results Incoming - 11/02/2016 6:00 PM CDT EXAMINATION: XR CHEST 1 VW PORTABLE CLINICAL HISTORY: Cough COMPARISON: 09/22/2016 IMPRESSION: Heart and mediastinum are stable. Low lung volumes, with mild left basilar patchy opacities and no definite new consolidations. [facility]-[id number] * Partial thromboplastin time, activated (11/02/2016 4:20 PM) Only the most recent of 2 results within the time period is included. Component Value Ref Range PTT 34.2 23.0 - 36.0 sec Comment: PTT therapeutic range for unfractionated heparin is 61.0-112.0 seconds which corresponds to Anti-Xa 0.3-0.7 U/ml. Specimen Performing Laboratory Blood [facility] DEPARTMENT OF PATHOLOGY AND GENOMIC MEDICINE [address] [place] [address] * Prothrombin time with INR (11/02/2016 4:20 [...] vein thrombosis/pulmonary embolism. Specimen Performing Laboratory Blood [facility] DEPARTMENT OF PATHOLOGY AND GENOMIC MEDICINE [address] [place] [address] * Creatine kinase, total (CPK) (11/02/2016 4:20 PM) Component Value Ref Range Creatine kinase 45 26 - 192 U/L Specimen Performing Laboratory Plasma specimen [facility] DEPARTMENT OF PATHOLOGY AND GENOMIC MEDICINE [address] [place] [address] * Comprehensive metabolic panel (11/02/2016 4:20 PM) [...] Protein 6.8 6.3 - 8.3 g/dL Comment: [place] 4.6-7.0 g/dL 1 week 4.4-7.6 g/dL 7 [...] 1.2 mg/dL Specimen Performing Laboratory Plasma specimen [facility] DEPARTMENT [place] [address] * Vancomycin level, trough (09/26/2016 11:00 AM) Component Value Ref Range Vancomycin, trough 8.6 (L) 10.0 - 20.0 ug/mL Comment: Therapeutic Ranges: Peak 30.0 - 40.0 ug/mL Trough 10.0 - 20.0 ug/mL Specimen Performing Laboratory Serum [facility] DEPARTMENT OF PATHOLOGY AND [facility] [address] [place], [place] [id number] * CT Chest W Contrast (09/24/2016 3:37 PM) Specimen Performing Laboratory [place] [id number] Narrative EXAMINATION:CT CHEST W CONTRAST CLINICAL HISTORY:feverpneumonia [...] to prior insult. 4.No suspicious osseous lesions. [facility]-[id number] Procedure Note [facility], Radiology Results Incoming - 09/25/2016 5:19 [...] to prior insult. 4.No suspicious osseous lesions. [id number] * Thyroid stimulating hormone (09/24/2016 10:50 AM) Only the most recent of 2 results within the time period is included. Component Value Ref Range TSH 2.75 0.27 - 4.20 uIU/mL Specimen Performing Laboratory Plasma specimen [facility] DEPARTMENT OF PATHOLOGY AND GENOMIC MEDICINE [address] [place] [address] * Digoxin level (09/24/2016 4:40 AM) Component Value Ref Range Digoxin 1.4 0.8 - 2.0 ng/mL Comment: For valid Digoxin results, at least 6 hours should elapse between time of last dose and collection of blood. Otherwise, result may be false high. Therapeutic Range: 0.8 - 2.0 ng/mL Specimen Performing Laboratory Plasma specimen [facility] DEPARTMENT OF PATHOLOGY AND GENOMIC MEDICINE [address] [place] [address] * Lipid panel (09/24/2016 4:40 AM) Component [...] (>=200 mg/dL) Specimen Performing Laboratory Plasma specimen [facility] DEPARTMENT OF PATHOLOGY AND GENOMIC MEDICINE [address] [place] [address] * Echocardiogram complete w contrast and 3D if needed (09/23/2016 11:24 PM) Specimen Performing Laboratory [facility] [address] [place] [address] Narrative Echocardiography Report [address] [place] [address] Pat.Name:CATY FARMER Pat.ID:[id number] .Date: 09/23/2016 Refer.MD:VILLALOBOSCHARLOTTE RAWLS MD Exam Time: 9:41:00 PMStudy Type:Routine Echo Height:165cm Weight:86.5kg BSA: 1.94 m2 DOBAge:1934,81Y Sex: FEMALEBP: 118/59 HR:98 bpmSonogrphr: Sony Kennedy SHUN Pat. Stat.:Inpatient Room:[address] Study Status:Final Echo Event ID:[id number] Order ID:[id number] Reason for Study:AFib Procedures:2D Echo, Colorflow Doppler, [...] PA systolic pressure. MEASUREMENTS: 2D Parasternal [place] LVOT 2.1 cmLVPWd 1.1 cm LVIDd5.2 cmIndex [...] - 09/24/2016 4:52 PM CDT Echocardiography Report [address] [place] [address] Pat.Name: CATY FARMER Pat.ID: [id number] .Date: 09/23/2016 Refer.MD: CHARLOTTE VILLALOBOS MD Exam Time: 9:41:00 PM Study Type:Routine Echo Height: 165cm Weight: 86.5kg BSA: 1.94 m2 Age: 8 1935,81Y Sex: FEMALE BP: 118/59 HR: 98 bpm Sonogrphr: Sony Kennedy RDCS Pat. Stat.:Inpatient Room: H2070-J Study Status:Final Echo Event ID:[id number] Order ID: [id number] Reason for Study:AFib Procedures:2D Echo, Colorflow Doppler, [...] PA systolic pressure. MEASUREMENTS: 2D Parasternal [place] LVOT 2.1 cm LVPWd 1.1 cm LVIDd [...] 2.2 mmol/L Specimen Performing Laboratory Plasma specimen [facility] DEPARTMENT OF PATHOLOGY AND GENOMIC MEDICINE [address] [place] [address] * Influenza antigen (09/23/2016 2:27 AM) Component Value Ref Range Influenza antigen Negative for Influenza A/B antigen. Comment: Specimen Information Specimen Source: Nares Specimen Site: Left Specimen Performing Laboratory Nares - Left [facility] DEPARTMENT OF PATHOLOGY AND GENOMIC MEDICINE [address] [place] [address] after 08/27/2016 Insurance Payer Benefit Subscriber ID Type Phone Address Plan / Group MEDICARE MEDICARE xxxxxxxxxx Medicare [place], [place] PART A AND B AETNA AETNA xxxxxxxxxx Indemnity [facility] IN[facility] Home:
[2017-08-28 05:19] LABS: BASOPHILS % 0.2 % (0.0-1.0); EOSINOPHILS % 0.3 % (0.0-6.0); HEMATOCRIT 33.3 % (34.2-44.1); HEMOGLOBIN 11.1 g/dL (12.0-16.0); LYMPHOCYTES # (AUTO) 1.1 (1.0-3.2); LYMPHOCYTES % 10.6 % (18.0-39.1); MEAN CORPUSCULAR HEMOGLOBIN 31.5 pg (28-32); MEAN CORPUSCULAR HGB CONC 33.3 g/dL (31-35); MEAN CORPUSCULAR VOLUME 94.6 fL (81-99); MONOCYTES % 9.8 % (4.4-11.3); NEUTROPHILS # (AUTO) 7.8 (2.1-6.9); NEUTROPHILS % 78.7 % (38.7-80.0); PLATELET COUNT 305 x10e3/uL (140-360); RED BLOOD COUNT 3.52 x10e6/uL (3.6-5.1); RED CELL DISTRIBUTION WIDTH 14.1 % (11.7-14.4)
[2017-08-28 05:33] LABS: CLARITY,URINE CLEAR (CLEAR); COLOR,URINE YELLOW (YELLOW)
[2017-08-28 05:34] LABS: BILIRUBIN,URINE NEGATIVE (NEGATIVE); KETONES,URINE NEGATIVE (NEGATIVE); LEUKOCYTE ESTERASE ,URINE NEGATIVE (NEGATIVE); NITRITE,URINE NEGATIVE (NEGATIVE); PROTEIN,URINE DIPSTICK NEGATIVE (NEGATIVE); URINE UROBILINOGEN 0.2 mg/dL (0.2 - 1)
[2017-08-28 05:38] LABS: INR 1.25; PROTHROMBIN TIME 14.8 seconds (11.9-14.5)
[2017-08-28 05:39] LABS: PARTIAL THROMBOPLASTIN TIME 29.5 seconds (23.8-35.5)
[2017-08-28] MEDS ORDERED: SODIUM CHLORIDE 0.9% 500ML 500 ML IV ONE (05:45)
[2017-08-28] MEDS ORDERED: ACETAMINOPHEN 325 MG TAB PO ONE (05:45)
[2017-08-28 05:46] LABS: ALANINE AMINOTRANSFERASE 17 IU/L (0-55); ALBUMIN 3.4 g/dL (3.5-5.0); ALBUMIN/GLOBULIN RATIO 0.9 (0.8-2.0); ALKALINE PHOSPHATASE 89 IU/L (40-150); ANION GAP 13.9 mmol/L (8-16); BLOOD UREA NITROGEN 17 mg/dL (7-26); BUN/CREATININE RATIO 15 (6-25); CALCIUM 8.9 mg/dL (8.4-10.2); CARBON DIOXIDE 22 mmol/L (22-29); CHLORIDE 100 mmol/L (98-107); CREATINE KINASE 70 IU/L (29-168); CREATININE, SERUM 1.13 mg/dL (0.57-1.11); EST GLOMERULAR FILTRATION RATE 46 ML/MIN (60-); GLUCOSE 165 mg/dL (74-118); POTASSIUM 3.9 mmol/L (3.5-5.1); SODIUM 132 mmol/L (136-145)
[2017-08-28 05:47] LABS: BACTERIA,URINE FEW /HPF; EPITHELIAL CELLS,URINE FEW /LPF; MUCUS,URINE FEW (RARE); RBC,URINE 21-50 /HPF (0-5); WBC,URINE (MAN) 0-5 /HPF (0-5)
--- NOTE | 2017-08-28 06:07 | Diagnostic Imaging Report ---
EXAM: CHEST SINGLE (PORTABLE), AP 1 view INDICATION: Fever, shortness of breath COMPARISON: PA and lateral view of the chest August 17, 2017 FINDINGS: LINES/TUBES: None LUNGS: Left lower lobe atelectasis/scarring. PLEURA: No effusions or pneumothorax. HEART AND MEDIASTINUM: Normal size and contour. BONES AND SOFT TISSUES: No acute findings. IMPRESSION: No acute thoracic abnormality. Signed by: Dr. Inge Barrios M.D. on 08/28/2017 6:03 AM
[2017-08-28] MEDS ORDERED: ACETAMINOPHEN 325 MG TAB PO PRN (06:45)
[2017-08-28] MEDS ORDERED: ALBUTEROL SULF 0.083% NEB SOLN 3 ML NEB NEB SCH (07:00)
--- OUTSIDE RECORDS SUMMARY | 2017-08-28 07:31 | XMS REPORT | Clinical Summary ---
Author Author [facility] Organization [facility] Address Unknown Phone Unavailable Care Team Providers Care Consulting Solution Manager Name Role Phone Mera Ward MD PCP [...] Patient Quality Sofía Padilla RN Outreach 11/02/2016 [facility] Obstetrics and Gynecology Grant Montejo Pneumonia of both lower - Encounter MD Jon lobes due to infectious 11/08/2016 Magaly Villalobos MD organism (Primary Dx) 09/24/2016 Anesthesia Procedural Cardiology Robert Villalobos Event 09/24/2016 Procedure Pass Procedural Cardiology 09/22/2016 [facility] Cardiology CaballeroRoberto, Pneumonia of both lungs [...] CDT procedure are in the COLOR DOPPLER (80369) results section. ECHOCARDIOGRAM 2D Routine 09/23/2016 Results for this COMPLETE W MMODE SPECTRAL 11:24 PM CDT procedure are in the COLOR DOPPLER ([id number]) results section. [place] CRITICAL CARE, E/M Routine 09/23/2016 Results for this 30-74 MINUTES 5:41 AM CDT procedure are in the results section. after 08/27/2016 Results * POC glucose (11/08/2016 12:25 PM) Only the most recent of 9 results within the time period is included. Component Value Ref Range POC glucose 254 (H) 65 - 99 mg/dL Comment: [facility] Notified RN Meter ID: [id number] Tool Grinder Operator External: Wayne Jason Specimen Performing Laboratory [facility] DEPARTMENT OF PATHOLOGY AND GENOMIC MEDICINE [address] [place], [place] [id number] * Estimated GFR (11/08/2016 4:00 AM) Only [...] and Americans. Specimen Performing Laboratory Plasma specimen [facility] DEPARTMENT OF PATHOLOGY AND GENOMIC MEDICINE [address] [place] [address] * Basic metabolic panel (11/08/2016 4:00 AM) [...] 10.2 mg/dL Specimen Performing Laboratory Plasma specimen [facility] DEPARTMENT OF PATHOLOGY AND [address] [address] * Phosphorus level (11/07/2016 4:25 AM) Only the most recent of 5 results within the time period is included. Component Value Ref Range Phosphorus 3.6 2.4 - 4.5 mg/dL Specimen Performing Laboratory Plasma specimen [facility] DEPARTMENT OF PATHOLOGY AND [address] [address] * B natriuretic peptide (11/07/2016 4:25 AM) Only the most recent of 5 results within the time period is included. Component Value Ref Range BNP 391 (H) 0 - 100 pg/mL Specimen Performing Laboratory Blood [facility] PATHOLOGY AND [address] [address] * Magnesium level (11/07/2016 4:25 AM) Only the most recent of 6 results within the time period is included. Component Value Ref Range Magnesium 1.9 1.6 - 2.4 mg/dL Specimen Performing Laboratory Plasma specimen [facility] PATHOLOGY AND [address] [address] * Hemoglobin A1c (11/07/2016 4:25 AM) Component [...] type 1 diabetes. Specimen Performing Laboratory Blood [facility] PATHOLOGY AND [address] [address] * Hepatic function panel (11/07/2016 4:25 AM) [...] 35 U/L Specimen Performing Laboratory Plasma specimen [facility] DEPARTMENT OF PATHOLOGY AND GENOMIC MEDICINE [address] [place] [address] * XR Chest 1 Vw (11/06/2016 5:25 PM) Specimen Performing Laboratory [facility] [address] [place] [address] Narrative EXAMINATION:XR CHEST 1 VW CLINICAL HISTORY:Cough [...] (11/06/2016 10:31 AM) Specimen Performing Laboratory [facility] [address] [place] [address] Narrative Echocardiography Report [address] [place] [address] Pat.Name:CATY FARMER Pat.ID:[id number] .Date: 11/06/2016 Refer.MD:MAGALY VILLALOBOS MD Exam Time: 9:47:00 AMStudy Type:Routine Echo Height:64.96in Weight:184lb BSA: 1.91 m2 DOBAge:9[birth year]81Y Sex: FEMALEBP: 138/65 Sonogrphr: BONILLA JARA, RDSHUN, STAN/Adelso Mcdowell MD Pat. Stat.:Inpatient Room:N010Wzcul Status:Final Echo Event ID:[id number] Order ID:[id number] Reason for Study:HF; initial eval with symptoms [...] RAPof 5 mmHg. MEASUREMENTS: 2D Parasternal [place] LVOT 2 cmLA Ds 3.6 cm LVIDd5.4 cmIndex 2.8 cm/m Ao An2 cm LVIDs3.9 cmAo Rtd 3.2 cm Index1.7 cm/m LV%fs 28.9 % LV Mass 149.7 g(87-129) IVSd 0.7 cmLVM Index 78.4 g/m2 LVPWd0.9 cmRWT 0.3 LV EF SinglePlane LV Ad 35.4 cm2(9.5-22.3) LV EF 55.4 %(55-75) FUDFN719.4 ml (59-136) Index66.2 ml/m HR54 bpm LV [...] - 11/06/2016 3:45 PM CDT Echocardiography Report [address] [place] [address] Pat.Name: CATY FARMER.ID: [id number] .Date: 11/06/2016 Refer.MD: MAGALY VILLALOBOS MD Exam Time: 9:47:00 AM Study Type:Routine Echo Height: 64.96in Weight: 184lb BSA: 1.91 m2 Age: 8 1935,81Y Sex: FEMALE BP: 138/65 Sonogrphr: WENDI QUINTEROS, RCS, RDCS, [facility]/Adelso Mcdowell MD Pat. Stat.:Inpatient Room: M632 Study Status:Final Echo Event ID:[id number] Order ID: [id number] Reason for Study:HF; initial eval with symptoms [...] of 5 mmHg. MEASUREMENTS: 2D Parasternal [place] LVOT 2 cm LA Ds 3.6 cm [...] Renal (11/05/2016 9:22 AM) Specimen Performing Laboratory [address] [address] Narrative EXAM: RENAL CLINICAL DATA:HYDRONEPHROSIS, does not [...] IMPRESSION: 1. Renal ultrasound findings as above. [facility]-[id number] Procedure Note Hm Interface, Radiology Results Incoming [...] IMPRESSION: 1. Renal ultrasound findings as above. [facility]-[id number] * Angiotensin converting enzyme (11/05/2016 7:01 AM) Component Value Ref Range Angiotensin converting 44 9 - 67 U/L enzyme Comment: Performed by [facility], [address] [place] [address] [email or web address], Harpal Grigsby MD - Lab. Director Specimen Performing Laboratory Serum [facility] [address] [place] [address] * Urinalysis screen and microscopy, with reflex [...] UA 1 /LPF Specimen Performing Laboratory Urine [facility] DEPARTMENT OF PATHOLOGY AND [facility] [address] [place] [address] * Protein, urine, random (11/05/2016 6:30 AM) Component Value Ref Range Protein, urine random 36 mg/dL Specimen Performing Laboratory Urine [facility] DEPARTMENT OF PATHOLOGY AND [facility] [address] [place] [address] * Osmolality, urine (11/05/2016 6:30 AM) Component Value Ref Range Osmolality, urine 650 50 - 1,400 mOsm/kg Specimen Performing Laboratory Urine [facility] DEPARTMENT OF PATHOLOGY AND [address] [address] * Creatinine level, urine, random (11/05/2016 6:30 AM) Component Value Ref Range Creatinine, urine, random 137 mg/dL Specimen Performing Laboratory Urine [facility] [place] [address] * Urine culture (11/05/2016 6:30 AM) Only the most recent of 2 results within the time period is included. Component Value Ref Range Urine culture SEE COMMENTComment: Bacteriuria screen negative. Specimen Performing Laboratory [facility] DEPARTMENT OF PATHOLOGY AND [address] [address] * Total iron binding capacity (11/05/2016 5:05 AM) Component Value Ref Range Iron level 54 37 - 145 ug/dL Iron binding capacity 209 200 - 400 ug/dL % Saturation 25.8 15.0 - 38.0 % Specimen Performing Laboratory Plasma specimen [facility] [place] [address] * Immunofixation, serum (11/05/2016 5:05 AM) Component Value Ref Range Immunofixation, serum SEE COMMENTComment: See electrophoresis report below. Specimen Performing Laboratory Serum [facility] PATH[facility]Y [address] [address] * Vitamin D 25 hydroxy level (11/05/2016 [...] for alternative methods. Specimen Performing Laboratory Blood [facility] DEPARTMENT OF PATHOLOGY AND GENOMIC MEDICINE [address] [place] [address] * Reticulocyte count (11/05/2016 5:05 AM) Component Value Ref Range Retic %, auto 1.5 0.5 - 2.1 % Retic absolute, auto 0.0502 0.0210 - 0.1155 m/uL Specimen Performing Laboratory [facility] DEPARTMENT OF PATHOLOGY AND GENOMIC MEDICINE [address] [place] [address] * CBC with platelet and differential (11/05/2016 [...] (promyelocytes, myelocytes, metamyelocytes) Specimen Performing Laboratory Blood [facility] DEPARTMENT OF PATHOLOGY AND GENOMIC MEDICINE [address] [place] [address] * Serum electrophoresis (11/05/2016 5:05 AM) Component [...] Schroeder MD, PhD Specimen Performing Laboratory Serum [facility] DEPARTMENT OF PATHOLOGY AND GENOMIC MEDICINE [address] [place] [address] * Ferritin level (11/05/2016 5:05 AM) Component Value Ref Range Ferritin level 201 (H) 13 - 150 ng/mL Specimen Performing Laboratory Plasma specimen [facility] DEPARTMENT OF PATHOLOGY AND GENOMIC MEDICINE [address] [place] [address] * Vitamin B12 level (11/05/2016 5:05 AM) Component Value Ref Range Vitamin B12 438 211 - 946 pg/mL Comment: Significant overlap exists between normal and deficiency states. However, most patients with deficiencies will have Serum B12 <200 pg/mL. Specimen Performing Laboratory Serum [facility] DEPARTMENT OF PATHOLOGY AND GENOMIC MEDICINE [address] [place] [address] * Vancomycin level, random (11/04/2016 10:00 PM) Component Value Ref Range Vancomycin, random 9.0 ug/mL Specimen Performing Laboratory Serum [facility] DEPARTMENT OF PATHOLOGY AND [facility] [address] [place] [address] * LDH (11/04/2016 4:36 AM) Only the most recent of 2 results within the time period is included. Component Value Ref Range LDH 134 87 - 225 U/L Specimen Performing Laboratory Plasma specimen [facility] [place] [address] * Streptococcus pneumoniae urinary antigen (11/03/2016 4:49 PM) Component Value Ref Range Strep pneumo urinary Ag Negative for Streptococcus pneumoniae antigen. Comment: Specimen Information Specimen Source: Urine Specimen Site: Random void Specimen Performing Laboratory Urine - Random void [facility] [place] [address] * Legionella urinary antigen (11/03/2016 4:49 PM) Component Value Ref Range Legionella urinary Negative for Legionella serogroup 1 antigen. antigen Comment: Specimen Information Specimen Source: Urine Specimen Site: Random void Specimen Performing Laboratory Urine - Random void [facility] DEPARTMENT OF PATHOLOGY AND [facility] [address] [place] [address] * ECG 12 lead (11/03/2016 1:11 PM) Only the most recent of 5 results within the time period is included. Component Value Ref Range Ventricular rate 133 Atrial rate 133 QRSD interval 110 QT interval 354 QTC interval 526 QRS axis 1 68 T wave axis -38 EKG impression Sinus tachycardia with short OK-Low voltage QRS-Nonspecific ST and T wave abnormality-Prolonged QT-Abnormal ECG-In automated comparison with ECG of 02-NOV-2016 16:00,-OK interval has decreased-ST now depressed in Inferior leads- Specimen Performing Laboratory [facility] [address] [place] [address] * Sputum culture (11/03/2016 12:40 PM) Component Value Ref Range Sputum culture isolate Normal oral brandee isolated. Comment: Specimen Information Specimen Source: Sputum Specimen Site: Expectorated Specimen Performing Laboratory Sputum - Expectorated [facility] DEPARTMENT OF PATHOLOGY AND [facility] [address] [place] [address] * Gram stain (11/03/2016 12:40 PM) Component Value Ref Range Gram stain isolate Many WBC's Few Gram positive rods Comment: Specimen Information Specimen Source: Sputum Specimen Site: Expectorated Specimen Performing Laboratory Sputum - Expectorated [facility] DEPARTMENT OF PATHOLOGY AND GENOMIC MEDICINE [address] [place] [address] * CT Chest Wo Contrast Abdomen Wo Contrast Pelvis Wo Contrast (11/03/2016 11:10 AM) Specimen Performing Laboratory [facility] [address] [place] [address] Narrative EXAMINATION:CT CHEST WO CONTRAST ABDOMEN WO [...] 1.6 cm. IMPRESSION: No mass or adenopathy. [id number] Procedure Note Hm Interface, Radiology Results Incoming [...] 1.6 cm. IMPRESSION: No mass or adenopathy. [id number] * Aspergillus Ab by CF, serum (11/03/2016 [...] titer against a single antigen. Performed by [facility] [employer] [facility], [address] [place] [address] [email or web address], Harpal Grigsby MD - Lab. Director Specimen Performing Laboratory Serum [address] [address] * IgG subclasses (11/03/2016 7:51 AM) Component Value Ref Range Immunoglobulin G subclass 688 240 - 1,118 mg/dL 1 Comment: REFERENCE INTERVAL: Immunoglobulin G Subclass 1 Access complete set of age- and/or gender-specific reference intervals for this test in the [facility] ([facility]). Immunoglobulin G subclass 346 124 - 549 mg/dL 2 Comment: REFERENCE INTERVAL: Immunoglobulin G Subclass 2 Access complete set of age- and/or gender-specific reference intervals for this test in the [facility] ([facility]). Immunoglobulin G subclass 120 21 - 134 mg/dL 3 Comment: REFERENCE INTERVAL: Immunoglobulin G Subclass 3 Access complete set of age- and/or gender-specific reference intervals for this test in the [facility] ([facility]). Immunoglobulin G subclass 36 1 - 123 mg/dL 4 Comment: The total IgG (mg/dL) can be derived by the sum of the subclasses IgG1, IgG2, IgG3 and IgG4 values. However, a confirmatory and more precise total IgG is available by the nephelometric method of total IgG (Test # [id number]). REFERENCE INTERVAL: Immunoglobulin G Subclass 4 Access complete set of age- and/or gender-specific reference intervals for this test in the [facility] ([facility]). Performed by [facility] [address] [email or web address], Harpal Grigsby MD - Lab. Director Specimen Performing Laboratory Serum [address] [address] * Immunoglobulin A (11/03/2016 7:51 AM) Component Value Ref Range IgA 218 70 - 400 mg/dL Specimen Performing Laboratory Plasma specimen [facility] DEPARTMENT OF PATHOLOGY AND GENOMIC MEDICINE [address] [place] [address] * Immunoglobulin M (11/03/2016 7:51 AM) Component Value Ref Range IgM 64 33 - 255 mg/dL Specimen Performing Laboratory Plasma specimen [facility] DEPARTMENT OF PATHOLOGY AND GENOMIC MEDICINE [address] [place] [address] * Respiratory pathogen panel (11/03/2016 1:25 AM) [...] Left Specimen Performing Laboratory Nares - Left [facility] DEPARTMENT OF PATHOLOGY AND GENOMIC MEDICINE [address] [place] [address] * Blood culture, aerobic & anaerobic (11/02/2016 9:55 PM) Only the most recent of 4 results within the time period is included. Component Value Ref Range Blood culture isolate No growth after 5 days of incubation. Comment: Specimen Information Specimen Source: Blood Specimen Site: Hand, digit right Specimen Performing Laboratory Blood - Hand, digit right [facility] DEPARTMENT OF PATHOLOGY AND GENOMIC MEDICINE [address] [place] [address] * Troponin (11/02/2016 8:30 PM) Only the [...] myocardial injury. Specimen Performing Laboratory Plasma specimen [facility] DEPARTMENT OF PATHOLOGY AND GENOMIC MEDICINE [address] [place] [address] * XR Chest 1 Vw Portable (11/02/2016 5:50 PM) Only the most recent of 2 results within the time period is included. Specimen [facility] [address] [place] [address] Narrative EXAMINATION:XR CHEST 1 VW PORTABLE CLINICAL HISTORY:Cough COMPARISON:09/22/2016 IMPRESSION: Heart and mediastinum are stable. Low lung volumes, with mild left basilar patchy opacities and no definite new consolidations. [facility]-[id number] Procedure Note Hm Interface, Radiology Results Incoming - 11/02/2016 6:00 PM CDT EXAMINATION: XR CHEST 1 VW PORTABLE CLINICAL HISTORY: Cough COMPARISON: 09/22/2016 IMPRESSION: Heart and mediastinum are stable. Low lung volumes, with mild left basilar patchy opacities and no definite new consolidations. [facility]-[id number] * Partial thromboplastin time, activated (11/02/2016 4:20 PM) Only the most recent of 2 results within the time period is included. Component Value Ref Range PTT 34.2 23.0 - 36.0 sec Comment: PTT therapeutic range for unfractionated heparin is 61.0-112.0 seconds which corresponds to Anti-Xa 0.3-0.7 U/ml. Specimen Performing Laboratory Blood [facility] DEPARTMENT OF PATHOLOGY AND GENOMIC MEDICINE [address] [place] [address] * Prothrombin time with INR (11/02/2016 4:20 [...] vein thrombosis/pulmonary embolism. Specimen Performing Laboratory Blood [facility] DEPARTMENT OF PATHOLOGY AND GENOMIC MEDICINE [address] [place] [address] * Creatine kinase, total (CPK) (11/02/2016 4:20 PM) Component Value Ref Range Creatine kinase 45 26 - 192 U/L Specimen Performing Laboratory Plasma specimen [facility] DEPARTMENT OF PATHOLOGY AND GENOMIC MEDICINE [address] [place] [address] * Comprehensive metabolic panel (11/02/2016 4:20 PM) [...] Protein 6.8 6.3 - 8.3 g/dL Comment: Wallace 4.6-7.0 g/dL 1 week 4.4-7.6 g/dL 7 [...] 1.2 mg/dL Specimen Performing Laboratory Plasma specimen [facility] [place] [address] * Vancomycin level, trough (09/26/2016 11:00 AM) Component Value Ref Range Vancomycin, trough 8.6 (L) 10.0 - 20.0 ug/mL Comment: Therapeutic Ranges: Peak 30.0 - 40.0 ug/mL Trough 10.0 - 20.0 ug/mL Specimen Performing Laboratory Serum [facility] DEPARTMENT OF PATHOLOGY AND [facility] [address] [place], [place] [address] * CT Chest W Contrast (09/24/2016 3:37 PM) Specimen Performing Laboratory [place] [id number] Narrative EXAMINATION:CT CHEST W CONTRAST CLINICAL HISTORY:feverpneumonia [...] to prior insult. 4.No suspicious osseous lesions. [facility]-[id number] Procedure Note [facility], Radiology Results Incoming - 09/25/2016 5:19 [...] to prior insult. 4.No suspicious osseous lesions. [facility]-[id number] * Thyroid stimulating hormone (09/24/2016 10:50 AM) Only the most recent of 2 results within the time period is included. Component Value Ref Range TSH 2.75 0.27 - 4.20 uIU/mL Specimen Performing Laboratory Plasma specimen [facility] DEPARTMENT OF PATHOLOGY AND GENOMIC MEDICINE [address] [place] [address] * Digoxin level (09/24/2016 4:40 AM) Component Value Ref Range Digoxin 1.4 0.8 - 2.0 ng/mL Comment: For valid Digoxin results, at least 6 hours should elapse between time of last dose and collection of blood. Otherwise, result may be false high. Therapeutic Range: 0.8 - 2.0 ng/mL Specimen Performing Laboratory Plasma specimen [facility] DEPARTMENT OF PATHOLOGY AND GENOMIC MEDICINE [address] [place] [address] * Lipid panel (09/24/2016 4:40 AM) Component [...] (>=200 mg/dL) Specimen Performing Laboratory Plasma specimen [facility] DEPARTMENT OF PATHOLOGY AND GENOMIC MEDICINE [address] [place] [address] * Echocardiogram complete w contrast and 3D if needed (09/23/2016 11:24 PM) [facility]imen [facility] [address] [place] [address] Narrative Echocardiography Report [address] [place] [address] Pat.Name:CATY FARMER Pat.ID:[id number] .Date: 09/23/2016 Refer.MD:VILLALOBOSCHARLOTTE RAWLS MD Exam Time: 9:41:00 PMStudy Type:Routine Echo Height:165cm Weight:86.5kg BSA: 1.94 m2 DOBAge:1934,81Y Sex: FEMALEBP: 118/59 HR:98 bpmSonogrphr: Sony Kennedy SHUN Pat. Stat.:Inpatient Room:[address] Study Status:Final Echo Event ID:[id number] Order ID:[id number] Reason for Study:AFib Procedures:2D Echo, Colorflow Doppler, [...] PA systolic pressure. MEASUREMENTS: 2D Parasternal [place] LVOT 2.1 cmLVPWd 1.1 cm LVIDd5.2 cmIndex [...] - 09/24/2016 4:52 PM CDT Echocardiography Report [address] [place] [address] Pat.Name: CATY FARMER Pat.ID: [id number] .Date: 09/23/2016 Refer.MD: CHARLOTTE VILLALOBOS MD Exam Time: 9:41:00 PM Study Type:Routine Echo Height: 165cm Weight: 86.5kg BSA: 1.94 m2 Age: 8 1935,81Y Sex: FEMALE BP: 118/59 HR: 98 bpm Sonogrphr: Sony Kennedy RDCS Pat. Stat.:Inpatient Room: I7001-S Study Status:Final Echo Event ID:[id number] Order ID: [id number] Reason for Study:AFib Procedures:2D Echo, Colorflow Doppler, [...] PA systolic pressure. MEASUREMENTS: 2D Parasternal [place] LVOT 2.1 cm LVPWd 1.1 cm LVIDd [...] 2.2 mmol/L Specimen Performing Laboratory Plasma specimen [facility] DEPARTMENT OF PATHOLOGY AND GENOMIC MEDICINE [address] [place] [address] * Influenza antigen (09/23/2016 2:27 AM) Component Value Ref Range Influenza antigen Negative for Influenza A/B antigen. Comment: Specimen Information Specimen Source: Nares Specimen Site: Left Specimen Performing Laboratory Nares - Left [facility] DEPARTMENT OF PATHOLOGY AND GENOMIC MEDICINE [address] [place] [address] after 08/27/2016 Insurance Payer Benefit Subscriber ID Type Phone Address Plan / Group MEDICARE MEDICARE xxxxxxxxxx Medicare [place], [place] PART A AND B AETNA AETNA xxxxxxxxxx Indemnity [facility] INDEMNITY Home:
[2017-08-28] MEDS: SODIUM CHLORIDE 0.9% 1000ML 1,000 ML IV SCH ×2 (07:50→19:19)
[2017-08-28] MEDS: LEVOFLOXACIN 500MG/D5W 100ML 100 ML IV SCH (07:51)
[2017-08-28] MEDS ORDERED: SALMETEROL XINAFOATE IH PRN ×2 (10:15→10:45)
[2017-08-28] MEDS ORDERED: IPRATROPIUM BROMIDE 0.02% 2.5 ML NEB NEB SCH (12:00)
[2017-08-28] MEDS: IPRATROPIUM BROMIDE 0.02% 2.5 ML NEB NEB SCH ×2 (13:00→19:50)
[2017-08-28] MEDS: METHYLPREDNISOLONE SOD SUCC 40 MG/ML VIAL IV SCH ×2 (13:23→21:00)
[2017-08-28] MEDS: APIXABAN 5 MG TABLET PO SCH (13:24)
[2017-08-28] MEDS: VERAPAMIL HCL 120 MG TABSR PO SCH (13:24)
[2017-08-28] MEDS: ALBUTEROL SULF 0.083% NEB SOLN 3 ML NEB NEB SCH ×3 (13:31→15:07)
--- NOTE | 2017-08-28 17:40 | Consultation ---
DATE OF CONSULTATION: August 28, 2017 PULMONARY MEDICINE CONSULT REFERRING PHYSICIAN: Dr. Avery Rivers. REASON FOR REFERRAL: Persistent cough. HISTORY: Ms. Farmer is a pleasant 82-year-old female with coughing. Patient with asthma since her youth. She has intermittent allergies as well. She denies noah GERD. Patient did have lymphoma and had some chemotherapy in 2011 and is in remission reportedly, she says. Patient tells me she has 8 ER visits in the last 14 months with repetitive cough. Patient with predominantly dry quality but only now rarely coughed up some clear phlegm. Patient states the cough is bothersome. She is on Singulair, Advair, ProAir for this with insufficient suboptimal effect. Chest x-ray was done showing left atelectasis versus pneumonitis. In [address] of the chest with IV contrast where there was no lymphadenopathy in the chest. Subcentimeter noncalcified nodules in the inferior lingula and left lung base anteriorly are nonspecific. Patient with interim admit to [facility], but her oncologist remains at [facility]. So, she rarely will visit [facility] as well. She claims she had a bronchoscopy at one point somewhere recently. PAST MEDICAL HISTORY: Hypertension, atrial fibrillation, asthma at youth, intermittent allergies, lymphoma in remission with discovery in 2009 and 2011 chemotherapy. Reportedly hiatal hernia surgery, appendectomy, laparoscopic cholecystectomy, perforated intestine during abdominal wall biopsy that required bowel surgery. Reported PCP pneumonia after chemotherapy. MEDICATIONS: Medication list reviewed per the electronic record. ALLERGIES: CODEINE. SOCIAL HISTORY: No smoking, no drinking, no drugs. 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 She is independent in the ADLs and still driving. She was born in [place] but lived here for a long time. FAMILY HISTORY: Noncontributory. REVIEW OF SYSTEMS: GENERALLY: No weight changes. OPHTHALMOLOGIC: No double vision. ENT: No dry mouth. ENDOCRINE: No thyroid disease. PULMONARY: No COPD. CARDIAC: No MS. GASTROINTESTINAL: No GI bleed. GENITOURINARY: No dysuria. NEUROLOGIC: No seizures. DERMATOLOGIC: No rashes. MUSCULOSKELETAL: Mild arthritis. PSYCHIATRIC: No depression. PHYSICAL EXAMINATION VITAL SIGNS: Afebrile right now with T-max 100.2 here. Reported subjective fevers at home. GENERALLY: No acute distress but intermittent cough and mildly pale. HEENT: Normocephalic, atraumatic. NECK: Supple. Throat midline. LUNGS: Bilateral air entry, a few rhonchi bilaterally. Rare crackles. CARDIOVASCULAR: S1 and S2. No murmurs, rubs or gallops. ABDOMINAL: Soft, nontender. EXTREMITIES: No clubbing, no cyanosis, no edema. INTEGUMENT: No rash, no purpura. LABS: White count 10, hematocrit 33, platelets 305. Sodium 132, potassium 3.9, BUN 17, creatinine 1.13. Albumin is 3.4. Globulin is 3.7. BNP was 283 a couple of weeks ago. Patient did have a RAST panel performed at one point in 2010 with some positive antigens proven. Chest x-ray with left atelectasis versus pneumonia noted at the base, small, patchy. IMPRESSION AND PLAN 1. Chronic cough, chronic bronchitis. 2. Mild microscopic hematuria on urinalysis. 3. Abnormal chest x-ray, vascular atelectasis versus pneumonitis. 4. Chronic asthma since youth. 5. Intermittent allergies. 6. Atrial fibrillation. 7. Hypertension. 8. Lymphoma in 2009, status post 2012 chemotherapy. 9. History of gastroesophageal reflux disease surgery. At this time, we recommend CPT Acapella to help her bring up secretions. Continue bronchodilators. Consider hypertonic saline nebulized if needed. Most importantly, we wish to get records from [facility] or [facility] as she already had some of this workup. Given the significant chance of subclinical GERD, it is recommended to treat her as such and her home medicines include Nexium. She should optimize dietary and behavioral management of possible GERD as well. She is on amiodarone but a very low dose, but definitely outpatient followup and PFTs are indicated. Will get a bronchoscopy evaluation to see if there is any more PCP left or any sign of amiodarone in her lungs. We should look for other etiologies as well given the chronicity of this issue. Will consider if new CT chest needed if we do not have a recent one from other facilities. Thank you very much, Dr. Rivers, for allowing me the chance to participate in the care of Ms. Farmer. Do not hesitate to contact me if I could help in any way. Job#: [id number] EV
[2017-08-28] MEDS: AMITRIPTYLINE HCL 25 MG TAB PO SCH (17:47)
[2017-08-28] MEDS: METOPROLOL SUCCINATE 50 MG TAB XL PO SCH (17:47)
[2017-08-28] MEDS: AMIODARONE HCL 200 MG TAB PO SCH (21:00)
[2017-08-29] MEDS: IPRATROPIUM BROMIDE 0.02% 2.5 ML NEB NEB SCH ×4 (01:40→18:33)
[2017-08-29] MEDS: ALBUTEROL SULF 0.083% NEB SOLN 3 ML NEB NEB SCH ×4 (01:40→18:33)
[2017-08-29] MEDS: SODIUM CHLORIDE 0.9% 1000ML 1,000 ML IV SCH ×2 (03:00→12:03)
[2017-08-29 04:00] VITALS: BP 147/72
[2017-08-29 07:27] VITALS: BP 147/72
[2017-08-29 08:08] VITALS: BP 147/67
[2017-08-29] MEDS: METOPROLOL SUCCINATE 50 MG TAB XL PO SCH ×2 (08:19→16:58)
[2017-08-29] MEDS: PANTOPRAZOLE SOD 40 MG TABEC PO SCH (08:19)
[2017-08-29] MEDS: MONTELUKAST SODIUM 10 MG TAB PO SCH (08:19)
[2017-08-29] MEDS: POTASSIUM CHLORIDE 10 MEQ TABCR PO SCH (08:20)
[2017-08-29] MEDS: FUROSEMIDE 40 MG TAB PO SCH (08:20)
[2017-08-29] MEDS: VERAPAMIL HCL 120 MG TABSR PO SCH (08:21)
[2017-08-29] MEDS: AMITRIPTYLINE HCL 25 MG TAB PO SCH ×2 (08:21→16:58)
[2017-08-29] MEDS: LEVOFLOXACIN 500MG/D5W 100ML 100 ML IV SCH (08:21)
[2017-08-29] MEDS: METHYLPREDNISOLONE SOD SUCC 40 MG/ML VIAL IV SCH ×2 (08:21→21:25)
[2017-08-29] MEDS: APIXABAN 5 MG TABLET PO SCH (08:21)
[2017-08-29] MEDS ORDERED: NON-FORMULARY MEDICATION ([Eliquis] 5 MG) PO SCH (09:00)
[2017-08-29] MEDS ORDERED: VERAPAMIL HCL 120 MG PO SCH (09:00)
[2017-08-29 12:10] VITALS: BP 104/53
[2017-08-29 16:27] VITALS: BP 118/56
--- NOTE | 2017-08-29 17:29 | Progress Note ---
DATE: August 29, 2017 PULMONARY MEDICINE PROGRESS NOTE SUBJECTIVE: Ms. Farmer was seen and examined at the bedside. She continues to have issues regarding the cough. . She was seen by the neurologist regarding her findings. The CT of the head was unremarkable. MRI is pending. Oxygen saturation 95% on 3 L per minute nasal cannula oxygen. No respiratory distress over the last day. She did have a bowel movement. REVIEW OF SYSTEMS: No headaches. No rash. OBJECTIVE VITALS: Afebrile. Vital signs noted per electronic record. GENERAL: In no acute distress. Alert and calm. HEENT: Normocephalic and atraumatic. NECK: Supple. Throat midline. LUNGS: Bilateral air entry. Few rhonchi. CARDIOVASCULAR: S1 and S2. No murmurs, rubs or gallops. ABDOMEN: Soft and nontender. EXTREMITIES: No clubbing. No cyanosis. There is stable 1-2+ edema. INTEGUMENT: No rash. No purpura. IMPRESSION AND PLAN 1. Pneumonia. 2. Fluid overload, less likely. 3. 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 4. Hypoxemia. 5. Weakness. Chest PT to be continued for now. Follow up with neurology and see what it takes to get her mobilizing. The patient furthermore will have antibiotics to be held. Already has been given . The patient likely has chronic interstitial process. If she improves in the next couple of days, will offer bronchoscopy to her. Follow up. Job#: [id number] ZACKARY
--- NOTE | 2017-08-29 17:45 | Progress Note ---
DATE: August 29, 2017 PULMONARY MEDICINE PROGRESS NOTE SUBJECTIVE: Mrs. Framer was seen and examined at bedside. She continues to have a little bit of coughing. Has not really gotten better. Still has some shortness of breath. The patient remains getting initial treatment and antibiotic therapy. No definite response to steroids so far. No clinical bleeding noted. She is on anticoagulation. REVIEW OF SYSTEMS: No headaches. No rash. OBJECTIVE VITALS: Afebrile. Vital signs noted per electronic record. GENERAL: In no acute distress. Alert and calm. HEENT: Normocephalic and atraumatic. NECK: Supple. Throat midline. LUNGS: Bilateral air entry. Few rhonchi. CARDIOVASCULAR: S1 and S2. No murmurs, rubs or gallops. ABDOMEN: Soft and nontender. EXTREMITIES: No clubbing. No cyanosis. There is no edema. INTEGUMENT: No rash. No purpura. LABS: No new labs. IMPRESSION 1. Pqnmz-[id number] pneumonitis. 2. Bronchiectasis. 3. Repeated hospitalizations. 4. Weakness. 5. Lymphoma and clinically immunosuppressed. Continue antibiotics at this time. We await records from [facility] that were requested. I have put in an order for outpatient vest CPT device given the patient's 8 hospitalizations over the last 1-1/2 years, and many which are due to breathing related processes. I did review the records from [facility]. The bronchoscopy ended up being done at [facility], and we need these records to make a plan for treatment decision. Continue bronchodilators and antibiotics in the interim. Job#: [id number] ZACKARY
[2017-08-29 20:00] VITALS: BP 129/61
[2017-08-29] MEDS: AMIODARONE HCL 200 MG TAB PO SCH (21:25)
[2017-08-30] VITALS: BP 134/61
[2017-08-30] MEDS: IPRATROPIUM BROMIDE 0.02% 2.5 ML NEB NEB SCH ×4 (01:00→19:00)
[2017-08-30] MEDS: ALBUTEROL SULF 0.083% NEB SOLN 3 ML NEB NEB SCH ×4 (01:00→19:00)
[2017-08-30 04:00] VITALS: BP 106/54
[2017-08-30 07:45] VITALS: BP 139/61
[2017-08-30] MEDS: AMITRIPTYLINE HCL 25 MG TAB PO SCH ×2 (10:48→16:33)
[2017-08-30] MEDS: LEVOFLOXACIN 500MG/D5W 100ML 100 ML IV SCH (10:48)
[2017-08-30] MEDS: VERAPAMIL HCL 120 MG TABSR PO SCH (10:48)
[2017-08-30] MEDS: METHYLPREDNISOLONE SOD SUCC 40 MG/ML VIAL IV SCH ×2 (10:48→21:10)
[2017-08-30] MEDS: APIXABAN 5 MG TABLET PO SCH (10:48)
[2017-08-30] MEDS: FUROSEMIDE 40 MG TAB PO SCH (10:49)
[2017-08-30] MEDS: METOPROLOL SUCCINATE 50 MG TAB XL PO SCH (10:49)
[2017-08-30] MEDS: MONTELUKAST SODIUM 10 MG TAB PO SCH (10:49)
[2017-08-30] MEDS: PANTOPRAZOLE SOD 40 MG TABEC PO SCH (10:49)
[2017-08-30] MEDS: POTASSIUM CHLORIDE 10 MEQ TABCR PO SCH (11:09)
[2017-08-30 11:39] VITALS: BP 134/60
[2017-08-30 11:43] VITALS: BP 134/60
[2017-08-30 16:00] VITALS: BP 136/63
[2017-08-30] MEDS: SODIUM CHLORIDE 0.9% 1000ML 1,000 ML IV SCH (17:00)
[2017-08-30] MEDS: AMIODARONE HCL 200 MG TAB PO SCH (21:10)
[2017-08-31] MEDS: ALBUTEROL SULF 0.083% NEB SOLN 3 ML NEB NEB SCH ×4 (01:00→19:33)
[2017-08-31] MEDS: IPRATROPIUM BROMIDE 0.02% 2.5 ML NEB NEB SCH ×4 (01:00→19:33)
--- NOTE | 2017-08-31 06:43 | Diagnostic Imaging Report ---
EXAM: CHEST SINGLE (PORTABLE), AP 1 view INDICATION: Bronchitis, fever COMPARISON: AP view of the chest August 28, 2017 FINDINGS: LINES/TUBES: None LUNGS: Bilateral bronchial thickening and left lower lobe atelectasis. PLEURA: No effusions or pneumothorax. HEART AND MEDIASTINUM: Stable appearance BONES AND SOFT TISSUES: No acute findings. IMPRESSION: Findings consistent with bronchitis. Left lower lobe atelectasis could represent consolidative pneumonia in the appropriate clinical setting. Signed by: Dr. Inge Barrios M.D. on 08/31/2017 6:39 AM
[2017-08-31] MEDS: SODIUM CHLORIDE 3% FOR INHALATION 15 ML NEB IH SCH ×2 (07:07→19:33)
[2017-08-31 07:52] VITALS: BP 145/64
--- NOTE | 2017-08-31 08:19 | Progress Note ---
DATE: August 30, 2017 PULMONARY PROGRESS NOTE SUBJECTIVE: Ms. Farmer was seen and examined at bedside. She continues to have a lot of coughing. Still with continued difficulty coughing up secretions as the majority are not coming up. Normal saline IV fluids at 60 mL per hour. She is on room air FIO2. No fevers over this last day finally. Eating a little better. REVIEW OF SYSTEMS: No headaches. No diarrhea. OBJECTIVE VITALS: Afebrile. Vital signs noted per electronic record. GENERAL: In no acute distress. Alert and calm. HEENT: Normocephalic and atraumatic. NECK: Supple. Throat midline. LUNGS: Bilateral air entry. Few moderate rhonchi and rare wheeze. CARDIOVASCULAR: S1 and S2. No murmurs, rubs or gallops. ABDOMEN: Soft and nontender. EXTREMITIES: No clubbing. No cyanosis. There is no edema. INTEGUMENT: No rash. No purpura. IMPRESSION AND PLAN 1. Nfign-hb-ihnzmbu pneumonitis. 2. Bronchiectasis with multiple hospitalizations. 3. Weakness. 4. Lymphoma and clinical immunosuppression. 5. Chronic asthma since youth. 6. Intermittent allergies. 7. History of gastroesophageal reflux disease. 8. Atrial fibrillation. Due to previous interventions for the bronchiectatic lung disease, wish to start hypertonic saline. The acapella CPT did not work. There is no personnel available to assist with manual percussion. The patient is failing bronchodilators. The vest device that was ordered is expected to be increase optimization and give her better quality of life. As of now, we will await the [facility] records, which the patient states that she will try to coordinate for tomorrow that needs to be brought over as the patient already had a bronchoscopy, and there would be no high indication to repeat it. We have to get AFB and fungal cultures also, as well as cytology to rule out PCP from that bronchoscopy. Job#: [id number] ZACKARY
[2017-08-31] MEDS: FUROSEMIDE 40 MG TAB PO SCH (09:11)
[2017-08-31] MEDS: AMITRIPTYLINE HCL 25 MG TAB PO SCH ×2 (09:11→17:03)
[2017-08-31] MEDS: LEVOFLOXACIN 500MG/D5W 100ML 100 ML IV SCH (09:11)
[2017-08-31] MEDS: VERAPAMIL HCL 120 MG TABSR PO SCH (09:11)
[2017-08-31] MEDS: POTASSIUM CHLORIDE 10 MEQ TABCR PO SCH (09:11)
[2017-08-31] MEDS: APIXABAN 5 MG TABLET PO SCH (09:11)
[2017-08-31] MEDS: MONTELUKAST SODIUM 10 MG TAB PO SCH (09:12)
[2017-08-31] MEDS: PREDNISONE 20 MG TAB PO SCH (09:12)
[2017-08-31] MEDS: PANTOPRAZOLE SOD 40 MG TABEC PO SCH (09:12)
[2017-08-31 10:09] VITALS: BP 145/64
[2017-08-31 11:54] VITALS: BP 131/61
--- NOTE | 2017-08-31 13:36 | Progress Note ---
DATE: August 31, 2017 PULMONARY MEDICINE PROGRESS NOTE SUBJECTIVE: Ms. Farmer was seen and examined at bedside. She continues to have a significant cough intermittently. She still has trouble expectorating the secretions. The patient was started on the hypertonic saline solution, and yet has not helped the cough the fluid up. I discussed with case management who did make contact with personnel to acquire outpatient chest wall auscultatory treatment vest. REVIEW OF SYSTEMS: No diarrhea. No constipation. OBJECTIVE VITALS: Afebrile. Vital signs noted per electronic record. GENERAL: In no acute distress. Alert and calm right now. HEENT: Normocephalic and atraumatic. NECK: Supple. Throat midline. LUNGS: Bilateral air entry. Few rhonchi, moderate amount. Few wheeze. CARDIOVASCULAR: S1 and S2. No murmurs, rubs or gallops. ABDOMEN: Soft and nontender. EXTREMITIES: No clubbing. No cyanosis. There is no edema. INTEGUMENT: No rash. No purpura. IMPRESSION AND PLAN 1. Recurrent pneumonia. 2. Chronic bronchiectasis. 3. Possible chronic interstitial lung disease, not otherwise specified. 4. Dyspnea and shortness of breath. 5. History of lymphoma, in remission, and clinical immunosuppressed state. 6. Asthma in youth. At this time, will continue to follow up the bronchoscopy results from previous hospital. The patient had these requested again through medical records as the [place] fax service was actually dysfunctional, but we were able to finally get confirmation that they did receive the request. We should continue the increase hypertonic saline at this point nebulized. Continue other medicines nebulized. Mobilize the patient. We await acquisition of outpatient vest device. Job#: [id number] ZACKARY
[2017-08-31 16:03] VITALS: BP 125/62
[2017-08-31] MEDS: SODIUM CHLORIDE 0.9% 1000ML 1,000 ML IV SCH (17:03)
[2017-08-31 19:50] VITALS: BP 135/63
[2017-08-31 20:00] VITALS: BP 127/61
[2017-08-31] MEDS: AMIODARONE HCL 200 MG TAB PO SCH (20:45)
[2017-09-01] MEDS: ALBUTEROL SULF 0.083% NEB SOLN 3 ML NEB NEB SCH ×4 (01:00→18:55)
[2017-09-01] MEDS: IPRATROPIUM BROMIDE 0.02% 2.5 ML NEB NEB SCH ×4 (01:00→18:55)
[2017-09-01 04:05] VITALS: BP 138/65
[2017-09-01] MEDS: SODIUM CHLORIDE 3% FOR INHALATION 15 ML NEB IH SCH (07:00)
[2017-09-01 07:33] VITALS: BP 158/68
[2017-09-01] MEDS: APIXABAN 5 MG TABLET PO SCH (09:16)
[2017-09-01] MEDS: LEVOFLOXACIN 500MG/D5W 100ML 100 ML IV SCH (09:16)
[2017-09-01] MEDS: AMITRIPTYLINE HCL 25 MG TAB PO SCH ×2 (09:16→16:32)
[2017-09-01] MEDS: PREDNISONE 20 MG TAB PO SCH (09:17)
[2017-09-01] MEDS: VERAPAMIL HCL 120 MG TABSR PO SCH (09:17)
[2017-09-01] MEDS: FUROSEMIDE 40 MG TAB PO SCH (09:17)
[2017-09-01] MEDS: MONTELUKAST SODIUM 10 MG TAB PO SCH (09:17)
[2017-09-01] MEDS: POTASSIUM CHLORIDE 10 MEQ TABCR PO SCH (09:17)
[2017-09-01] MEDS: PANTOPRAZOLE SOD 40 MG TABEC PO SCH (09:17)
[2017-09-01 10:15] VITALS: BP 158/68
[2017-09-01] MEDS: SODIUM CHLORIDE 0.9% 1000ML 1,000 ML IV SCH (10:21)
[2017-09-01 11:44] VITALS: BP 122/57
[2017-09-01 16:07] VITALS: BP 136/63
[2017-09-01 20:00] VITALS: BP 124/60
[2017-09-01] MEDS: AMIODARONE HCL 200 MG TAB PO SCH (20:31)
--- NOTE | 2017-09-01 23:11 | Progress Note ---
DATE: September 01, 2017 PULMONARY MEDICINE PROGRESS NOTE SUBJECTIVE: Ms. Farmer was seen and examined at bedside. We did collect some records from [facility]. However, they were not totally complete. Patient was without any new significant complaints today. No respiratory distress episodes. 98% oxygen saturation on 2 L per minute nasal cannula. 1.2 L in, 0.8 L out. Two bowel movements. REVIEW OF SYSTEMS: No double vision. No rash. OBJECTIVE VITAL SIGNS: Afebrile. Vital signs noted per electronic record. GENERAL: In no acute distress. Alert and calm. HEENT: Normocephalic, atraumatic. NECK: Supple. Throat midline. LUNGS: Bilateral air entry. A few rhonchi. Rare wheeze. CARDIOVASCULAR: S1, S2. No murmurs, rubs or gallops. ABDOMEN: Soft, nontender. EXTREMITIES: No clubbing or cyanosis. There is 1+ edema. INTEGUMENT: No rash, no purpura. IMPRESSION 1. Chronic pneumonitis. 2. Bronchiectasis. 3. Treat for acute pneumonia. 4. History of diffuse large B-cell lymphoma, follicular center cell derivation. Status post R-CHOP, last in September 2011. Status post Rituxan, last in December 2013. 5. Weakness. 6. Possible gastroesophageal reflux disease although no strong story is definite. 7. Functional immunosuppression. 8. Chronic asthma. PLAN: Continue current treatment. Vest was ordered for outpatient treatment. Continue to mobilize the patient. Encourage expectoration. Continue hypertonic saline nebulized. Continue Singulair and anticoagulation. Will follow along closely. We requested records from [facility] from the bronchoscopy which are the results. We need cytology, AFB, fungal, regular bacterial cultures and cell count with differential. Job#: [id number]
[2017-09-02] VITALS (8 sets, daily range): BP systolic 141–163; BP diastolic 62–76
[2017-09-02] MEDS: ALBUTEROL SULF 0.083% NEB SOLN 3 ML NEB NEB SCH ×4 (01:00→20:40)
[2017-09-02] MEDS: IPRATROPIUM BROMIDE 0.02% 2.5 ML NEB NEB SCH ×4 (01:00→20:40)
[2017-09-02] MEDS: SODIUM CHLORIDE 0.9% 1000ML 1,000 ML IV SCH ×2 (01:38→16:43)
[2017-09-02 06:29] LABS: HEMATOCRIT 29.4 % (34.2-44.1); HEMOGLOBIN 9.5 g/dL (12.0-16.0); MEAN CORPUSCULAR HEMOGLOBIN 31.6 pg (28-32); MEAN CORPUSCULAR HGB CONC 32.3 g/dL (31-35); MEAN CORPUSCULAR VOLUME 97.7 fL (81-99); PLATELET COUNT 188 x10e3/uL (140-360); RED BLOOD COUNT 3.01 x10e6/uL (3.6-5.1); RED CELL DISTRIBUTION WIDTH 14.2 % (11.7-14.4)
[2017-09-02 07:10] LABS: ANION GAP 9.9 mmol/L (8-16); CALCIUM 8.7 mg/dL (8.4-10.2); CREATININE, SERUM 1.17 mg/dL (0.57-1.11); POTASSIUM 3.9 mmol/L (3.5-5.1)
[2017-09-02 08:06] LABS: LYMPHOCYTES % (MANUAL) 44 % (19-48); MONOCYTES % (MANUAL) 9 % (3.4-9.0); NEUTROPHILS % (MANUAL) 45 % (40-74)
[2017-09-02 08:08] LABS: ANISOCYTOSIS SLIGHT; PLATELET ESTIMATE ADEQUATE; PLATELET MORPHOLOGY COMMENT NORMAL; RBC MORPHOLOGY COMMENT NORMAL
[2017-09-02] MEDS: AMITRIPTYLINE HCL 25 MG TAB PO SCH ×2 (08:10→16:43)
[2017-09-02] MEDS: FUROSEMIDE 40 MG TAB PO SCH (08:18)
[2017-09-02] MEDS: LEVOFLOXACIN 500MG/D5W 100ML 100 ML IV SCH (08:18)
[2017-09-02] MEDS: APIXABAN 5 MG TABLET PO SCH (08:18)
[2017-09-02] MEDS: PANTOPRAZOLE SOD 40 MG TABEC PO SCH (08:18)
[2017-09-02] MEDS: MONTELUKAST SODIUM 10 MG TAB PO SCH (08:18)
[2017-09-02] MEDS: POTASSIUM CHLORIDE 10 MEQ TABCR PO SCH (08:18)
[2017-09-02] MEDS: PREDNISONE 20 MG TAB PO SCH (08:18)
[2017-09-02] MEDS: VERAPAMIL HCL 120 MG TABSR PO SCH (08:18)
[2017-09-02] MEDS: SODIUM CHLORIDE 3% FOR INHALATION 15 ML NEB IH SCH ×2 (09:07→20:40)
--- NOTE | 2017-09-02 14:02 | Progress Note ---
DATE: September 02, 2017 PULMONARY MEDICINE PROGRESS NOTE SUBJECTIVE: Mrs. Farmer was seen and examined at bedside. She continues to have a cough intermittently. She did hock up 2 small quantities of sputum. Sputum was slightly yellow. However, this is very typical for her. She remains short of breath in her secretions. REVIEW OF SYSTEMS: No headaches continuous. No rash. OBJECTIVE VITALS: Afebrile. Vital signs noted per electronic record. GENERAL: In no acute distress. Alert and calm. HEENT: Normocephalic and atraumatic. NECK: Supple. Throat midline. LUNGS: Bilateral air entry. Few rhonchi and rare wheezes. CARDIOVASCULAR: S1 and S2. No murmurs, rubs or gallops. ABDOMEN: Soft and nontender. EXTREMITIES: No clubbing. No cyanosis. There is no edema. INTEGUMENT: No rash. No purpura. LABS: I specifically talked to outside hospital facility. On May 08, 2017, they did send off a bronchoscopic culture, speciation and cytology and cell count that we were looking for. They expect to send to me shortly. Potassium 3.9, creatinine 1.1. White count 7, hematocrit 29 and platelets 188,000. IMPRESSION AND PLAN 1. Chronic pneumonitis. 2. Acute pneumonia. 3. Weakness. 4. History of lymphoma. 5. Elevated creatinine. 6. Bronchiectasis. Continue to wait delivery of vest. Patient will have continued antibiotics at this time. Continue to promote expectoration. I have discussed with [facility], and they said that they are faxing the results right now as we speak from the old bronchoscopy. Continue medicines such as amiodarone, although she will need pulmonary monitoring in the future. Monitor as well for GERD, but the patient really denies the presence of bothersome GERD. Job#: [id number] ZACKARY
[2017-09-02] MEDS ORDERED: FLUCONAZOLE 200 MG/100 ML 100 ML IV SCH (17:00)
[2017-09-02] MEDS: AMIODARONE HCL 200 MG TAB PO SCH (21:06)
[2017-09-03] VITALS: BP 152/69
[2017-09-03] MEDS: IPRATROPIUM BROMIDE 0.02% 2.5 ML NEB NEB SCH ×3 (01:00→13:00)
[2017-09-03] MEDS: ALBUTEROL SULF 0.083% NEB SOLN 3 ML NEB NEB SCH ×3 (01:00→13:00)
[2017-09-03 04:00] VITALS: BP 159/70
[2017-09-03 08:00] VITALS: BP 159/72
[2017-09-03 08:20] VITALS: BP 159/72
[2017-09-03] MEDS: LEVOFLOXACIN 500MG/D5W 100ML 100 ML IV SCH (08:23)
[2017-09-03] MEDS: MONTELUKAST SODIUM 10 MG TAB PO SCH (08:24)
[2017-09-03] MEDS: PANTOPRAZOLE SOD 40 MG TABEC PO SCH (08:24)
[2017-09-03] MEDS: APIXABAN 5 MG TABLET PO SCH (08:24)
[2017-09-03] MEDS: POTASSIUM CHLORIDE 10 MEQ TABCR PO SCH (08:24)
[2017-09-03] MEDS: AMITRIPTYLINE HCL 25 MG TAB PO SCH (08:24)
[2017-09-03] MEDS: FUROSEMIDE 40 MG TAB PO SCH (08:24)
[2017-09-03] MEDS: VERAPAMIL HCL 120 MG TABSR PO SCH (08:24)
[2017-09-03] MEDS: PREDNISONE 20 MG TAB PO SCH (08:24)
[2017-09-03] MEDS: SODIUM CHLORIDE 3% FOR INHALATION 15 ML NEB IH SCH (11:00)
[2017-09-03 12:00] VITALS: BP_SYST 149; BP_SYST 155; BP_DIAS 67; BP_DIAS 70
[2017-09-03] MEDS ORDERED: SYMBICORT 16010.2 GM PO (12:43)
[2017-09-03] MEDS ORDERED: SODIUM CHLORIDE3 ML NEB (12:43)
[2017-09-03] MEDS ORDERED: PREDNISONE10 MG PO (12:43)
--- NOTE | 2017-09-03 13:51 | Progress Note ---
DATE: September 03, 2017 PULMONARY MEDICINE PROGRESS NOTE SUBJECTIVE: Ms. Farmer was seen and examined at bedside. Coughing still. However, she has gotten up some secretions. She is overall better than when she came into the hospital. I reviewed records from [facility] and discussed with them. Among the findings include cytology unremarkable. PTT was negative on cytology and on I believe direct antibody staining. Furthermore, AFB culture negative at 8 weeks. BAL cell count with differential showed 22% lymphocytes and the rest including 75% were histiocytes reported. Pathology was otherwise unremarkable. They did an iron stain showing only 1% were iron positive on the cytology. REVIEW OF SYSTEMS: No headaches. OBJECTIVE VITALS: Afebrile. Vital signs noted per electronic record. GENERAL: In no acute distress. HEENT: Normocephalic. NECK: Supple. LUNGS: Bilateral air entry. CARDIOVASCULAR: S1 and S2. ABDOMEN: Soft. EXTREMITIES: No edema. INTEGUMENT: No rash. LABS: BUN 20, 1.2 creatinine, 7 white count, 29 hematocrit. IMPRESSION AND PLAN 1. Chronic interstitial lung disease. 2. Bronchiectasis. 3. Acute pneumonia. 4. Lymphocytic alveolitis per bronchoscopy. Discharge planning. Get a chest x-ray as the next step, given the nondiagnostic bronchoscopy, although it did find lymphocytic alveolitis. Patient furthermore will need close outpatient followup. Based on CAT scan, future planning regarding pulmonary workup should ensue. Vest to be ordered promptly for delivery. Steroids will continue to be tapered. Job#: [id number]
[2017-09-03] MEDS ORDERED: DIFLUCAN200 MG PO (14:42)
--- NOTE | 2017-09-03 15:51 | Diagnostic Imaging Report ---
PROCEDURE: CT CHEST WITHOUT CONTRAST CT scan of the chest WITHOUT intravenous contrast, using high-resolution protocol. TECHNIQUE: The chest was scanned utilizing a multidetector helical scanner from the apex to the level of the adrenal glands. No IV contrast was administered per protocol. Inspiratory, expiratory and prone high-resolution images were performed. Coronal and sagittal multiplanar reformations were obtained. COMPARISON: None. INDICATIONS: BRONCHIECTASIS FINDINGS: Lines/tubes: None. Lungs and Airways: 3 mild apical pleuroparenchymal scarring. Mild bronchiectatic changes in the anteromedial left upper lobe/lingula (for example series 2, image 54), anteromedial right middle lobe (series 2, image 68). Bronchial wall thickening in the central aspects of the bronchi in both upper and lower lobes. Linear opacities in the lower lobes bilaterally, likely represent subsegmental atelectasis or scarring. Focal lingular scarring with associated bronchiectasis adjacent epicardial fat pad (series 2, image 74). Ill-defined ground glass opacities in the posteromedial right lower lobe (for example series 2, image 88) which decreased in prone images, likely reflecting atelectasis. Expiratory images showed no significant areas of air trapping. No pulmonary nodules, masses, or consolidation. Pleura: No effusion, or pneumothorax. Heart and mediastinum: Thyroid is unremarkable. Heart size is normal. No pericardial effusion. Extensive atherosclerotic calcification of the coronary arteries and to a lesser degree thoracic aorta. Aorta is non-aneurysmal. Main pulmonary artery is normal in caliber. Lymph nodes: No mediastinal, hilar, or axillary adenopathy Abdomen: Limited nonenhanced views of the upper abdomen show no abnormality within the liver, spleen, pancreas, kidneys, or adrenal glands. Bones: No aggressive lytic lesions. Degenerative changes in the thoracic spine. Soft tissues are grossly unremarkable. IMPRESSION: 1. mild bronchiectatic changes in the left upper lobe/lingular, anteromedial right middle lobe. 2. Bronchial wall thickening in the central bronchi of upper and lower lobes, likely reflect sequela of chronic bronchitis. No consolidation, nodules, or masses. 3. No significant air trapping on expiratory films. Van Thomson M.D. Dictated by: Van Thomson M.D. on 09/03/2017 at 15:51 Electronically approved by: Van Thomson M.D. on 09/03/2017 at 15:51
== END 2017-09-03 17:02 | disposition home health service (06) | DRG 194 ==
LOC: ER 04:54 → ERHOLD 07:27 → IMCU 09:00 → OBSVTOIN 08-30 12:14 → MED/SURG3 08-30 12:15
DX: J18.9 Pneumonia, unspecified organism (principal); J98.11 Atelectasis; J45.901 Unspecified asthma with (acute) exacerbation; I48.91 Unspecified atrial fibrillation; D64.9 Anemia, unspecified; R31.29 Other microscopic hematuria; K21.9 Gastro-esophageal reflux disease without esophagitis; I10 Essential (primary) hypertension; Z85.72 Personal history of non-Hodgkin lymphomas; R09.02 Hypoxemia; Z79.01 Long term (current) use of anticoagulants; J47.9 Bronchiectasis, uncomplicated; I25.10 Atherosclerotic heart disease of native coronary artery without angina pectoris; Z88.5 Allergy status to narcotic agent
CPT/HCPCS: 36415; 71045; 71250; 80048; 80053; 81001; 82103; 82550; 82553; 82785; 82948; 83036; 83605; 83615; 83880; 84484; 85007; 85025; 85027; 85610; 85651; 85730; 86021; 86039; 86140; 86431; 87040; 87086; 93005; 93970; 94640; 96360; 96361; 99284; G0378; J1450; J1956; J2920; J7030; J7040

== ENCOUNTER 2018-06-20 17:38 | Emergency (ER) | payer MEDICARE, OTHER ==
[~2018-06-20] VITALS: Ht 165.1 cm; Wt 88.0 kg
[~2018-06-20 17:38] MED LIST changes: +DIFLUCAN200 MG PO; +PREDNISONE10 MG PO; +SODIUM CHLORIDE3 ML NEB; +SYMBICORT 16010.2 GM PO
--- OUTSIDE RECORDS SUMMARY | 2018-06-20 17:41 | XMS REPORT | Clinical Summary ---
Author Author [facility] Organization [facility] Address Unknown Phone Unavailable Care Team Providers Care Public Health Teacher Name Role Phone Marbin Ward MD PCP Allergies Comments Active Allergy Reactions Severity Noted Date Dizziness .,"was hospitalized after taking codeine" Codeine Other (See 07/24/2016 Comments) Medications End Date Status Medication Sig Dispensed Refills Start Date Active amitriptyline (ELAVIL) 25 Take 25 mg by 0 MG tablet mouth daily. Active apixaban (ELIQUIS) 5 mg Take 5 mg by 0 tablet mouth 2 (two) times a day. Active esomeprazole (NexIUM) 40 Take 40 mg by 0 MG capsule mouth as needed. Active furosemide (LASIX) 40 mg Take 40 mg by 0 tablet mouth daily as needed (edema). Active montelukast (SINGULAIR) Take 10 mg by 0 10 mg tablet mouth nightly. Active potassium chloride Take 20 mEq 0 (K-DUR,KLOR-CON) 10 MEQ by mouth as CR tablet needed (with lasix). Active salmeterol (SEREVENT Inhale 2 0 DISKUS) 50 mcg/dose puffs daily diskus inhaler as needed. Active metoprolol tartrate Take 1 tablet 180 tablet 3 (LOPRESSOR) 25 mg tablet (25 mg total) 7 by mouth 2 (two) times a day. Active Problems Problem Noted Date Pneumonia 11/02/2016 Afib 11/02/2016 History of lymphoma 11/02/2016 GERD (gastroesophageal reflux disease) 11/02/2016 Anemia of chronic disease 11/02/2016 Fever 11/02/2016 Chronic kidney disease, stage III (moderate) 11/02/2016 Chronic systolic heart failure 11/02/2016 Pneumonia of both lungs due to infectious organism 09/23/2016 Family History Medical History Relation Name Comments Heart disease Brother Hypertension Brother Diabetes Mother Heart disease Mother Hypertension Mother Heart disease Sister Hypertension Sister Relation Name Status Comments Brother Mother Sister Social History Date Tobacco Use Types Packs/Day Years Used Never Smoker Smokeless Tobacco: Never Used Tobacco Cessation: Counseling Given: No Alcohol Use Drinks/Week oz/Week Comments No Sex Assigned at Date Recorded Not on file Industry Job Start Date Occupation Not on file Not on file Not on file Travel End Travel History Travel Start No recent travel history available. Last Filed Vital Signs Not on file Plan of Treatment Health Maintenance Due Date Last Done Comments SHINGLES VACCINES (1 of 1987 2) PNEUMOCOCCAL 2002 POLYSACCHARIDE VACCINE AGE 65 AND OVER PNEUMOCOCCAL-13 2002 INFLUENZA VACCINE 12/16/2017 Results Not on fileafter 06/19/2017 Insurance Payer Benefit Subscriber ID Type Phone Address Plan / Group MEDICARE MEDICARE xxxxxxxxxx [place] B AETNA AETNA xxxxxxxxxx Indemnity [employer] RE INDEMNITY Advance Directives Patient has advance care planning documents on file. For more information, ana wilkes contact: [employer] [address] [place] [address]
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
== END 2018-06-20 21:49 | disposition home or self-care (01) ==
LOC: FSED 17:38
DX: M54.2 Cervicalgia (principal); S13.4XXA Sprain of ligaments of cervical spine, initial encounter; S20.211A Contusion of right front wall of thorax, initial encounter; V53.5XXA Driver of pick-up truck or van injured in collision with car, pick-up truck or van in traffic accident, initial encounter; Y92.488 Other paved roadways as the place of occurrence of the external cause; I10 Essential (primary) hypertension; I50.9 Heart failure, unspecified; Z85.72 Personal history of non-Hodgkin lymphomas
CPT/HCPCS: 71046; 72125; 99284

== ENCOUNTER 2019-06-29 23:08 | Inpatient (IN) | payer MEDICARE ==
[~2019-06-29] VITALS: Ht 165.1 cm; Wt 90.3 kg
[~2019-06-29 23:08] MED LIST changes: +ACYCLOVIR800 MG PO; +ASPIR 8181 MG
[2019-06-29] MEDS ORDERED: CEFEPIME 2 GM/NS 0.9% 100 ML 100 ML IV STA (23:22)
[2019-06-29] MEDS ORDERED: SODIUM CHLORIDE 0.9% 1000ML 1,000 ML IV ONE (23:30)
[2019-06-29] MEDS ORDERED: SODIUM CHLORIDE 0.9% 1000ML 1,000 ML ONE (23:30)
[2019-06-29] MEDS ORDERED: ACETAMINOPHEN 325 MG TAB PO ONE (23:30)
[2019-06-29] MEDS ORDERED: ACETAMINOPHEN 325 MG TAB ONE (23:30)
[2019-06-29 23:45] LABS: BASOPHILS % 0.1 % (0.0-1.0); EOSINOPHILS # (AUTO) 0.1 (0.0-0.4); EOSINOPHILS % 1.2 % (0.0-6.0); HEMATOCRIT 29.7 % (34.2-44.1); HEMOGLOBIN 9.1 g/dL (12.0-16.0); LYMPHOCYTES # (AUTO) 3.4 (1.0-3.2); LYMPHOCYTES % 37.1 % (18.0-39.1); MEAN CORPUSCULAR HEMOGLOBIN 29.2 pg (28-32); MEAN CORPUSCULAR HGB CONC 30.6 g/dL (31-35); MEAN CORPUSCULAR VOLUME 95.2 fL (81-99); MONOCYTES # (AUTO) 0.9 (0.2-0.8); MONOCYTES % 9.4 % (4.4-11.3); NEUTROPHILS # (AUTO) 4.7 (2.1-6.9); NEUTROPHILS % 51.9 % (38.7-80.0); PLATELET COUNT 240 x10e3/uL (140-360); RED BLOOD COUNT 3.12 x10e6/uL (3.6-5.1); RED CELL DISTRIBUTION WIDTH 17.4 % (11.7-14.4)
[2019-06-30 00:07] LABS: ALBUMIN 3.3 g/dL (3.5-5.0); ALBUMIN/GLOBULIN RATIO 0.9 (0.8-2.0); ANION GAP 13.9 mmol/L (8-16); CALCIUM 8.8 mg/dL (8.4-10.2); CREATININE, SERUM 0.94 mg/dL (0.57-1.11); POTASSIUM 3.9 mmol/L (3.5-5.1)
[2019-06-30] MEDS ORDERED: IBUPROFEN 600 MG TAB PO STA (00:22)
--- NOTE | 2019-06-30 00:36 | Diagnostic Imaging Report ---
EXAMINATION: CHEST SINGLE (PORTABLE) INDICATION: Fever, cough COMPARISON: Chest CT 04/26/2019 FINDINGS: TUBES and LINES: None. LUNGS: Normal lung volumes. Bilateral infrahilar and lower lung haziness. Prominent pulmonary vasculature. Peribronchial cuffing. No consolidations. PLEURA: No pleural effusion or pneumothorax. HEART AND MEDIASTINUM: Cardiac size is mildly enlarged. BONES AND SOFT TISSUES: Degenerative changes in the spine and shoulders. Soft tissues are unremarkable. UPPER ABDOMEN: No free air under the diaphragm. IMPRESSION: Bilateral infrahilar and lower lung haziness could be due to pneumonia or edema. Mild cardiomegaly and pulmonary vascular congestion. Signed by: Stephen Kelly DO on 06/30/2019 12:33 AM
[2019-06-30] MEDS ORDERED: AZITHROMYCIN 500MG/NS 250 ML 250 ML IV ONE (00:45)
[2019-06-30 00:52] LABS: BILIRUBIN,URINE NEGATIVE (NEGATIVE); CLARITY,URINE CLEAR (CLEAR); COLOR,URINE YELLOW (YELLOW); KETONES,URINE NEGATIVE (NEGATIVE); LEUKOCYTE ESTERASE ,URINE NEGATIVE (NEGATIVE); NITRITE,URINE NEGATIVE (NEGATIVE); PROTEIN,URINE DIPSTICK NEGATIVE (NEGATIVE); URINE UROBILINOGEN 0.2 mg/dL (0.2 - 1)
[2019-06-30 01:06] LABS: BACTERIA,URINE FEW /HPF; EPITHELIAL CELLS,URINE FEW /LPF; WBC,URINE (MAN) 0-5 /HPF (0-5)
[2019-06-30] MEDS: AZITHROMYCIN 500MG/SOD CHL 0.9% 250ML BAG IV SCH (01:44)
[2019-06-30] MEDS: ALBUTEROL SULF 0.083% NEB SOLN 3 ML NEB NEB SCH ×6 (02:12→23:00)
[2019-06-30] MEDS: SODIUM CHLORIDE 0.9% 1000ML 1,000 ML IV SCH ×3 (04:24→18:23)
--- NOTE | 2019-06-30 06:45 | NUR ---
Walking rounds done. Patient resting comfortably. Shift report given to mert turk. Addendum: 07/01/19 at 0740 by Cecille Guevara RN Wrong date for entry.
--- NOTE | 2019-06-30 06:55 | NUR ---
report given to bharat morataya
[2019-06-30] MEDS: IPRATROPIUM BROMIDE 0.02% 2.5 ML NEB NEB SCH ×3 (07:20→19:15)
[2019-06-30 07:52] LABS: CREATINE KINASE MB 2.6 ng/mL (0-5.0)
[2019-06-30] MEDS: CEFEPIME HCL 2 GM/SOD CHL 0.9% 100 ML BAG IV SCH ×2 (08:07→14:12)
[2019-06-30] MEDS ORDERED: GABAPENTIN100 MG PO (08:40)
[2019-06-30 13:31] LABS: CREATINE KINASE 110 IU/L (29-168)
[2019-06-30 17:15] LABS: CREATINE KINASE MB < 1.00 ng/mL (0-4.3)
[2019-06-30 17:16] LABS: CREATINE KINASE 95 IU/L (29-168)
[2019-06-30 17:40] VITALS: BP 146/65
--- NOTE | 2019-06-30 17:40 | NUR ---
PATIENT RECEIVED FROM ER PER STRETCHER. ALERT AND VERBALLY RESPONSIVE, DENIED PAIN AT THIS TIME. SKIN WARM AND DRY TO TOUCH, RESPIRATION EVEN AND UNLABORED. ABDOMEN SOFT AND NON DISTENDED. TELEMETRY BOX [address] PATIENT ORIENTED TO SURROUNDINGS. BED IN LOWER POSITION, CALL LIGHT AT REACH. INSTRUCTED TO CALL FOR ASSISTANCE NEEDED.
[2019-06-30 17:46] VITALS: BP 146/65
--- NOTE | 2019-06-30 19:25 | NUR ---
Patient received sitting up in bed. AAO x 4. Patient had no complaints of pain. Respirations even and non-labored. Safety measures implemented. Patient instructed to call for assistance when needed. Call light within reach.
[2019-06-30 20:00] VITALS: BP 137/63
[2019-06-30 21:00] VITALS: BP 137/63
[2019-06-30] MEDS: CEFEPIME 2 GM/NS 0.9% 100 ML 100 ML IV SCH (21:25)
[2019-06-30 23:25] VITALS: BP 148/67
[2019-07-01] VITALS (7 sets, daily range): BP systolic 104–186; BP diastolic 62–89
[2019-07-01] MEDS: IPRATROPIUM BROMIDE 0.02% 2.5 ML NEB NEB SCH ×4 (00:20→20:09)
[2019-07-01] MEDS: ALBUTEROL SULF 0.083% NEB SOLN 3 ML NEB NEB SCH ×2 (00:36→07:00)
[2019-07-01] MEDS: SODIUM CHLORIDE 0.9% 1000ML 1,000 ML IV SCH (01:27)
[2019-07-01] MEDS: AZITHROMYCIN 500MG/SOD CHL 0.9% 250ML BAG IV SCH (01:30)
[2019-07-01] MEDS: CEFEPIME 2 GM/NS 0.9% 100 ML 100 ML IV SCH ×3 (06:56→20:41)
--- NOTE | 2019-07-01 07:00 | NUR ---
Walking rounds done. Patient resting comfortably. Shift report given to oncoming nurse.
--- NOTE | 2019-07-01 07:30 | NUR ---
PATIENT ASSISTED TO THE RESTROOM AND BACK TO BED, NO DISTRESS NOTED. BED IN LOWER POSITION, CALL LIGHT AT REACH.
[2019-07-01] MEDS ORDERED: LEVALBUTEROL HCL SOLN NEBU 1.25 MG/3 ML NEB INH PRN (10:00)
--- NOTE | 2019-07-01 11:08 | NUR ---
MD IN TO SEE PATIENT, HOME MEDS RENEWED.
[2019-07-01] MEDS: ACETAMINOPHEN 325 MG TAB PO PRN ×2 (12:00→18:15)
[2019-07-01] MEDS: AMITRIPTYLINE HCL 25 MG TAB PO SCH ×2 (12:10→17:00)
[2019-07-01] MEDS: GABAPENTIN 100 MG CAP PO SCH (12:10)
[2019-07-01] MEDS: AMIODARONE HCL 200 MG TAB PO SCH (12:10)
[2019-07-01] MEDS: ASPIRIN 81 MG CHEW TAB PO SCH (12:10)
[2019-07-01] MEDS: MONTELUKAST SODIUM 10 MG TAB PO SCH (12:10)
--- NOTE | 2019-07-01 15:51 | NUR ---
PATIENT IN BED RESTING WITH EYES CLOSED, NO DISTRESS NOTED. CALL LIGHT AT REACH.
[2019-07-01] MEDS ORDERED: AMITRIPTYLINE HCL 25 MG TAB PO SCH (17:00)
--- NOTE | 2019-07-01 17:12 | NUR ---
PATIENT NOTED WITH HR OF 120-150, MD NOTIFIED, NEW ORDERS RECEIVED.
[2019-07-01] MEDS ORDERED: VERAPAMIL HCL 120 MG TABSR PO SCH (17:30)
[2019-07-01] MEDS ORDERED: FUROSEMIDE INJ 10 MG/ML 4 ML VIAL IV ONE (18:30)
[2019-07-01] MEDS: BUDESONIDE/FORMOTEROL 160/4.5MCG INHALER INH SCH (19:00)
--- NOTE | 2019-07-01 19:30 | NUR ---
Received report from day nurse. Patient is resting comfortably in the bed. bed is in the lowest position and call holliday is within reach. Will continue to monitor patient.
[2019-07-01] MEDS ORDERED: TEMAZEPAM 7.5 MG CAP PO PRN (20:00)
[2019-07-01] MEDS ORDERED: HYDROCODONE/APAP 5MG-325MG TAB PO PRN (20:00)
--- NOTE | 2019-07-01 20:00 | NUR ---
patient is complaining of pain that is not being relieved with current pain medication. MD notified. received new order for hydrocodone 5/325 po q 4 hours as needed for pain.
--- NOTE | 2019-07-01 20:10 | NUR ---
Pharmacy called to notify of codeine allergy. Spoke with patient's family at bedside that said patient will be fine taking hydrocodone. Patient also states she will be fine with hydrocodone.
[2019-07-01] MEDS ORDERED: TEMAZEPAM 15 MG CAP PO PRN (21:00)
[2019-07-02] VITALS (8 sets, daily range): BP systolic 99–148; BP diastolic 55–79
[2019-07-02] MEDS: IPRATROPIUM BROMIDE 0.02% 2.5 ML NEB NEB SCH ×4 (01:14→19:50)
[2019-07-02] MEDS: AZITHROMYCIN 500MG/SOD CHL 0.9% 250ML BAG IV SCH (02:00)
[2019-07-02] MEDS: CEFEPIME 2 GM/NS 0.9% 100 ML 100 ML IV SCH (06:00)
[2019-07-02 06:14] LABS: BASOPHILS % 0.1 % (0.0-1.0); EOSINOPHILS # (AUTO) 0.2 (0.0-0.4); EOSINOPHILS % 2.2 % (0.0-6.0); HEMATOCRIT 25.6 % (34.2-44.1); HEMOGLOBIN 7.7 g/dL (12.0-16.0); LYMPHOCYTES # (AUTO) 2.6 (1.0-3.2); LYMPHOCYTES % 37.7 % (18.0-39.1); MEAN CORPUSCULAR HEMOGLOBIN 28.7 pg (28-32); MEAN CORPUSCULAR HGB CONC 30.1 g/dL (31-35); MEAN CORPUSCULAR VOLUME 95.5 fL (81-99); MONOCYTES # (AUTO) 0.6 (0.2-0.8); MONOCYTES % 8.9 % (4.4-11.3); NEUTROPHILS # (AUTO) 3.4 (2.1-6.9); NEUTROPHILS % 50.4 % (38.7-80.0); PLATELET COUNT 234 x10e3/uL (140-360); RED BLOOD COUNT 2.68 x10e6/uL (3.6-5.1); RED CELL DISTRIBUTION WIDTH 17.9 % (11.7-14.4)
[2019-07-02 06:32] LABS: ANION GAP 10.8 mmol/L (8-16); CALCIUM 8.5 mg/dL (8.4-10.2); CREATININE, SERUM 1.03 mg/dL (0.57-1.11); POTASSIUM 3.8 mmol/L (3.5-5.1)
--- NOTE | 2019-07-02 07:00 | NUR ---
BEDSIDE REPORT DONE. PT IS ALERT AND RESTING IN BED, NO S/S OF DISTRESS. CALL LIGHT WITHIN REACH AND INSTRUCTED PT TO CALL RN FOR HELP
--- NOTE | 2019-07-02 07:03 | NUR ---
patient is resting in bed. walking rounds complete. bed is in lowest position and call holliday is within reach.
[2019-07-02] MEDS: BUDESONIDE/FORMOTEROL 160/4.5MCG INHALER INH SCH ×2 (08:05→19:50)
[2019-07-02] MEDS ORDERED: IPRATROPIUM BROMIDE 0.02% 2.5 ML NEB NEB SCH (09:00)
[2019-07-02] MEDS ORDERED: GABAPENTIN 100 MG CAP PO SCH (09:00)
[2019-07-02] MEDS ORDERED: MONTELUKAST SODIUM 10 MG TAB PO SCH (09:00)
[2019-07-02] MEDS ORDERED: ASPIRIN 81 MG CHEW TAB PO SCH (09:00)
[2019-07-02] MEDS: AMIODARONE HCL 200 MG TAB PO SCH ×3 (09:00→20:39)
[2019-07-02] MEDS ORDERED: AMIODARONE HCL 200 MG TAB PO SCH (09:00)
[2019-07-02] MEDS: ASPIRIN 81 MG CHEW TAB PO SCH (09:08)
[2019-07-02] MEDS: VERAPAMIL HCL 120 MG TABSR PO SCH (09:08)
[2019-07-02] MEDS: GABAPENTIN 100 MG CAP PO SCH ×3 (09:10→20:39)
[2019-07-02] MEDS: MONTELUKAST SODIUM 10 MG TAB PO SCH (09:10)
[2019-07-02] MEDS: AMITRIPTYLINE HCL 25 MG TAB PO SCH ×2 (09:10→17:33)
[2019-07-02] MEDS: PANTOPRAZOLE SOD 40 MG TABEC PO SCH (09:10)
[2019-07-02] MEDS ORDERED: SODIUM CHLORIDE 0.9% 250ML 250 ML IV ONE (10:45)
[2019-07-02] MEDS: CEFEPIME 1GM/NS 0.9% 50 ML 50 ML IV SCH ×2 (10:56→20:39)
--- NOTE | 2019-07-02 10:59 | Diagnostic Imaging Report ---
Examination: Single AP view of the chest. COMPARISON: 06/29/2019 INDICATION: Pneumonia, CHF DISCUSSION: The lungs are well inflated. No focal consolidation, pleural effusion, or pneumothorax. Mild enlargement of the cardiac silhouette, and prominence of the pulmonary interstitium, grossly unchanged compared to 05/06/2020. No acute osseous abnormalities. IMPRESSION: Stable cardiomegaly and findings suggestive of interstitial edema relative to 06/29/2019. No new consolidations. Signed by: Dr. Richy Franco M.D. on 07/02/2019 10:56 AM
--- NOTE | 2019-07-02 11:02 | Progress Note ---
DATE: 07/02/2019 CHIEF COMPLAINT/HISTORY OF PRESENT ILLNESS: This is an 84-year-old white woman, whose primary treating diagnosis is bilateral gram-negative singh pneumonia and lbllr-oq-fsvgeuv systolic/diastolic congestive heart failure. Blood work today revealed B-type natriuretic peptide level of 945. The patient today was found to have hemoglobin of 7.7 g/dL. On admission, she was 9.1 g/dL. White blood cell count today 6800 with 50% segmented neutrophils. Also, blood work today revealed BUN and creatinine of 14 and 1.03, respectively. Urine culture revealed the presence of Enterococcus faecalis bacterial species. The sensitivities revealed the lowest minimal inhibitory concentration with vancomycin. Also, sputum cultures revealed the presence of Haemophilus species. The patient's main complaint is weakness. Last night, the patient was given a dose of intravenous furosemide because of tachycardia and shortness of breath. The patient's short of breath has improved. The patient states that her postherpetic neuralgia on the right lateral neck area is worsening. The patient states that she has had oral thrush for a few days. REVIEW OF SYSTEMS: As per HPI. PHYSICAL EXAMINATION: GENERAL: She is very pleasant and cooperative on exam. She is awake, alert and fully oriented. She appears to be slightly short of breath, but does not appear to be in any acute respiratory distress. VITAL SIGNS: Blood pressure is 136/64, pulse 64, respiratory rate 16, oxygen saturation is 99% on room air, and temperature 96.8. BMI is 33. INTEGUMENT: Skin is warm and dry. No pallor, jaundice, or diaphoresis. No evidence of shingles in her right lateral neck area. HEENT: Anicteric sclerae. Moist mucous membranes. NECK: Supple. CARDIOVASCULAR: Distant heart sounds. Regular rate and rhythm. LUNGS: The patient has crackles and rhonchi bilaterally with faint wheezes. ABDOMEN: Benign. EXTREMITIES: No edema or deformity. NEUROLOGIC: Intact. IMPRESSION: 1. Gram-negative singh (Haemophilus) pneumonia. 2. Enterococcus faecalis urinary tract infection. 3. Tayje-pm-fixhmzg systolic/diastolic congestive heart failure. 4. Postherpetic neuralgia (right lateral neck). 5. Oral candidiasis (thrush). 6. Chronic bronchitis. 7. Zldbb-pr-fxzdgcg anemia. PLAN: 1. Place Walsh catheter. 2. Start intravenous furosemide for the patient's acute heart failure. 3. Stop aspirin since the patient has acute anemia. 4. Hemoccult stool. 5. Change intravenous antibiotics to cover Enterococcus faecalis urinary tract infection and Haemophilus pneumonia. 6. Order chest x-ray. 7. We will start oral nystatin for the patient's oral thrush. 8. We will increase gabapentin to 3 times a day for her worsening postherpetic neuralgia. I spent 40 minutes in the care of the patient. MD ANUSHA Miranda/ASHLY /[id number] MTDD
[2019-07-02] MEDS: FUROSEMIDE INJ 10 MG/ML 4 ML VIAL IV SCH ×2 (11:30→20:39)
[2019-07-02] MEDS: VANCOMYCIN 1GM/NS 250 ML 250 ML IV SCH ×2 (12:42→22:07)
[2019-07-02] MEDS: NYSTATIN SUSPENSION 5 ML UDC PO SCH ×2 (12:59→17:34)
--- NOTE | 2019-07-02 13:39 | NUR ---
PAGED DR. ELKINS FOR ORDER CLARIFICATION. DR ELKINS GAVE VERBAL ORDERS FOR A "TYPE AND SCREEN FOR 2 UNITS". THERE WAS NO SPECIFICATION ON WHETHER TO GIVE OR HOLD THE 2 UNITS OF BLOOD. WAITING FOR CALL BACK
--- NOTE | 2019-07-02 19:20 | NUR ---
received report from day nurse. bedside rounds complete. patient is resting comfortably in bed. bed is in lowest position and call holliday is within reach. will continue to monitor patient.
[2019-07-02] MEDS: ACETAMINOPHEN 325 MG TAB PO PRN (20:56)
[2019-07-03] VITALS (8 sets, daily range): BP systolic 113–141; BP diastolic 58–64
[2019-07-03] MEDS: IPRATROPIUM BROMIDE 0.02% 2.5 ML NEB NEB SCH ×4 (00:35→20:12)
[2019-07-03] MEDS: NYSTATIN SUSPENSION 5 ML UDC PO SCH ×4 (00:41→17:47)
--- NOTE | 2019-07-03 06:36 | NUR ---
patient is resting in the bed. bed is in the lowest position and call light is within reach. denies pain or discomfort at this time.
[2019-07-03] MEDS: BUDESONIDE/FORMOTEROL 160/4.5MCG INHALER INH SCH ×2 (07:00→20:12)
--- NOTE | 2019-07-03 07:00 | NUR ---
bedside report done. pt is sleeping, no s/s of distress. call light within reach and bed safety in place.
[2019-07-03 08:23] LABS: HEMATOCRIT 26.1 % (34.2-44.1)
[2019-07-03] MEDS: GABAPENTIN 100 MG CAP PO SCH ×3 (08:58→20:45)
[2019-07-03] MEDS: AMITRIPTYLINE HCL 25 MG TAB PO SCH ×2 (08:58→17:00)
[2019-07-03] MEDS: MONTELUKAST SODIUM 10 MG TAB PO SCH (08:58)
[2019-07-03] MEDS: PANTOPRAZOLE SOD 40 MG TABEC PO SCH (08:58)
[2019-07-03] MEDS: VERAPAMIL HCL 120 MG TABSR PO SCH (08:58)
[2019-07-03] MEDS: FUROSEMIDE INJ 10 MG/ML 4 ML VIAL IV SCH (09:05)
[2019-07-03] MEDS: CEFEPIME 1GM/NS 0.9% 50 ML 50 ML IV SCH ×2 (09:05→20:45)
[2019-07-03] MEDS: VANCOMYCIN 1GM/NS 250 ML 250 ML IV SCH ×2 (09:52→22:26)
[2019-07-03 09:58] LABS: ALBUMIN 2.7 g/dL (3.5-5.0); ALBUMIN/GLOBULIN RATIO 0.7 (0.8-2.0); ANION GAP 13.7 mmol/L (8-16); CALCIUM 8.3 mg/dL (8.4-10.2); CREATININE, SERUM 1.22 mg/dL (0.57-1.11); POTASSIUM 3.7 mmol/L (3.5-5.1)
--- NOTE | 2019-07-03 10:22 | Progress Note ---
DATE: 07/03/2019 CHIEF COMPLAINT/HISTORY OF PRESENT ILLNESS: This is an 84-year-old white woman whose primary treating diagnosis is acute on chronic systolic/diastolic congestive heart failure and urinary tract infection. Urine culture revealed Enterococcus faecalis bacterial species. Sputum culture revealed Haemophilus bacterial species. The patient is currently receiving intravenous vancomycin and cefepime for her urinary tract infection and pneumonia, respectively. The patient states that taking gabapentin 3 times a day has been very helpful for her post herpetic neuralgia on the right side of her neck. The patient states oral thrush is also improved with oral nystatin. Her main complaint is generalized weakness. The patient states her shortness of breath has improved. She still has productive cough. Blood work performed yesterday, July 02, 2019, revealed a B type natriuretic peptide level of 945. The patient underwent a chest x-ray on July 02, 2019, which revealed stable cardiomegaly as well as findings suggestive of interstitial edema. No new consolidations were appreciated according to the radiologist. The patient had a blood work done this morning found to have a hemoglobin of 8 g/dL. Yesterday's hemoglobin 7.7 g/dL. REVIEW OF SYSTEMS: As per HPI. PHYSICAL EXAMINATION: GENERAL: She is awake, alert, and fluent. She is mildly dyspneic, but she is in no obvious respiratory distress. She is very pleasant and cooperative with exam. She is awake, alert, and fully oriented. VITAL SIGNS: Blood pressure is 140/64, pulse 76, respiratory rate 18, oxygen is 94% on room air, and temperature 96.8. BMI is 33. INTEGUMENT: Skin is warm and dry. No pallor, jaundice, or diaphoresis. HEENT: Anicteric sclerae. Moist mucous membranes. NECK: Supple. No evidence of jugular venous distention. CARDIOVASCULAR: Distant heart sounds. Regular rate and rhythm with an S3 gallop. LUNGS: The patient has crackles and rhonchi bilaterally. ABDOMEN: Benign. EXTREMITIES: No deformity. NEUROLOGIC: Intact. DIAGNOSES: 1. Acute on chronic systolic/diastolic congestive heart failure. 2. Haemophilus pneumonia. 3. Enterococcus faecalis urinary tract infection. 4. Postherpetic neuralgia (right lateral neck). 5. Oral thrush. 6. Acute on chronic anemia. 7. Hypertensive heart disease. PLAN: 1. Follow hemoglobin and hematocrit. 2. Consult Cardiology for the patient's acute congestive heart failure. 3. Continue intravenous fluids for the patient's congestive heart failure. 4. Continue intravenous cefepime for the patient's Haemophilus pneumonia. 5. Continue intravenous vancomycin for the patient's Enterococcus faecalis urinary tract infection. 6. Continue gabapentin for the patient's postherpetic neuralgia. 7. Continue nystatin for the patient's oral thrush. I spent 30 minutes in the care of this patient. MD ANUSHA Miranda/ASHLY /[id number] MTDJocelyn
--- NOTE | 2019-07-03 17:37 | Consultation ---
DATE OF CONSULTATION: 07/03/2019 Cardiac Consultation REASON FOR CONSULTATION: Possible volume overload, congestive heart failure, shortness of breath, weakness. HISTORY OF PRESENT ILLNESS: This is an 84-year-old lady, who is known with history of paroxysmal atrial fibrillation, seasonal allergies. 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 Regardless, the patient in her usual status of health for the last week or so, she is having worsening shortness of breath, but more importantly are fever, chills, running nose. She was diagnosed as per record as gram-negative rods pneumonia. She was placed on antibiotics. The patient started having worsening shortness of breath. She was given Lasix with good results yesterday and cardiac consultation is obtained. Cardiac lucero, the patient is noted to have paroxysmal atrial fibrillation. She is on amiodarone 100 mg a day and Verelan. In the past, she used to be on Eliquis. However, she had severe epistaxis and she refused to take any one anticoagulation. She is only on aspirin. She reported no recurrence of her atrial fibrillation. Cardiac lucero, the patient claims always her cardiac stress test would come back normal. Her hypertension is nicely controlled. Regarding her lymphoma, she was treated in 2011 at [facility]. She is in remission. HOME MEDICATIONS: Include: 1. Aspirin 81 mg a day. 2. Amiodarone 100 mg a day. 3. Verapamil 120 mg a day. 4. Singulair 10 mg a day. 5. Nexium 40 mg a day. 6. Elavil 1 tablet a day. 7. She is on Atrovent and DuoNeb. ALLERGIES: CODEINE CAUSING HER SHORTNESS OF BREATH PAST MEDICAL HISTORY: 1. Paroxysmal atrial fibrillation. 2. Seasonal allergies. 3. Nosebleed in 2018. 4. Hysterectomy. 5. Cholecystectomy. 6. Abdominal hernia incisional surgery. 7. Lymphoma in 2011, treated at [facility] with chemotherapy. 8. GI surgery following biopsy and perforation of viscus in 2011. 9. History of asthma. SOCIAL HISTORY: She is . She is nonsmoker, non-alcohol drinker. 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 REVIEW OF SYSTEMS: GENERAL: Fever, chills, weakness. HEENT: Remarkable for recent history of congestion and sore throat, etc. PULMONARY: Cough. No pleuritic chest pain or shortness of breath. CARDIAC: Easy fatigability. No angina. Occasional palpitation. No syncope or presyncope. GI: Good appetite. No heartburn. No constipation. No nausea. No vomiting. No hematemesis. HEMATOLOGY: No easy bruising or bleeding. : The patient had recently urinary tract infection. MUSCULOSKELETAL: Back pain, knee pain, stiffness in the morning. PERIPHERAL VASCULAR: Leg swelling. No claudication. NEUROLOGIC: No seizure activity. No localized deficit. FAMILY HISTORY: Father at age 32 of natural causes. Mother at age 74 with diabetic and heart failure complication. Five siblings and three children. No premature coronary artery disease. PHYSICAL EXAMINATION: VITAL SIGNS: Height of 5 feet 5 inches, weight of 202 pounds. Blood pressure is 140/60, heart rate of 80, respiratory rate of 18. HEENT: Pupils are reactive. NECK: No elevation of jugular venous pulsation. No thyromegaly. No lymphadenopathy. CHEST: Decreased air entry. A few crackles. HEART: PMI in 5th left intercostal space. Normal first and second heart sounds. ABDOMEN: Soft with good bowel sounds. EXTREMITIES: No signs no clubbing, no edema. NEUROLOGIC: Awake, alert, and oriented. No motor or sensory deficits. LABORATORY DATA: Sodium of 159, potassium 3.7. BUN of 16, creatinine of 1.22. White blood cell count of 6.8, hemoglobin of 8, hematocrit 26%, platelet count of 234,000. EKG showing normal sinus rhythm, first-degree AV block, nonspecific ST-T changes. Chest x-ray read as volume overload. BNP is elevated at 941. IMPRESSION AND PLAN: 1. Admission with pneumonia. 2. History of lymphoma, treated by chemotherapy. 3. Paroxysmal atrial fibrillation with no recurrence. The patient refused anticoagulation. 4. Definite anemia, most likely blood loss at GI level. 5. History of asthma. 6. Hypertension. 7. Varicosity and varicose veins. Case discussed and explained at length. We will get an echocardiogram. We will decrease her verapamil to 120 from 240 she is on. We will decrease her Lasix dosing. We will stop her IV fluid. I will take the liberty to check stool for occult blood and place a GI consultation because most likely, the patient is having chronic blood loss from GI sources. Case discussed and explained. Differential diagnosis are explained. We will follow the patient's progression with you. MD HOLLIS Camacho/ASHLY /[id number]
[2019-07-03] MEDS: AMIODARONE HCL 200 MG TAB PO SCH (20:45)
[2019-07-03] MEDS: ACETAMINOPHEN 325 MG TAB PO PRN (20:45)
--- NOTE | 2019-07-03 21:48 | NUR ---
received vanco trough result of 19.9 from lab. paged, awaiting call back.
--- NOTE | 2019-07-03 21:57 | NUR ---
MD returned call. received order to continue vancomycin therapy as is. Also received new order for Dulcolax suppository once daily as needed for constipation.
[2019-07-03] MEDS: BISACODYL 10 MG SUPP PR PRN (22:26)
[2019-07-03] MEDS ORDERED: BISACODYL 10 MG SUPP PR ONE (23:30)
[2019-07-04] VITALS (8 sets, daily range): BP systolic 123–152; BP diastolic 59–71
[2019-07-04] MEDS: NYSTATIN SUSPENSION 5 ML UDC PO SCH ×5 (00:29→23:38)
[2019-07-04] MEDS ORDERED: BISACODYL 10 MG SUPP PR ONE ×2 (00:30)
[2019-07-04] MEDS: IPRATROPIUM BROMIDE 0.02% 2.5 ML NEB NEB SCH ×4 (01:05→19:55)
[2019-07-04 05:25] LABS: FERRITIN 115.03 ng/mL (4.63-204.00)
[2019-07-04 06:39] LABS: BASOPHILS % 0.4 % (0.0-1.0); EOSINOPHILS # (AUTO) 0.2 (0.0-0.4); EOSINOPHILS % 4.3 % (0.0-6.0); HEMATOCRIT 28.2 % (34.2-44.1); HEMOGLOBIN 8.6 g/dL (12.0-16.0); LYMPHOCYTES # (AUTO) 2.3 (1.0-3.2); MEAN CORPUSCULAR HEMOGLOBIN 28.9 pg (28-32); MEAN CORPUSCULAR HGB CONC 30.5 g/dL (31-35); MEAN CORPUSCULAR VOLUME 94.6 fL (81-99); MONOCYTES # (AUTO) 0.5 (0.2-0.8); MONOCYTES % 9.8 % (4.4-11.3); NEUTROPHILS # (AUTO) 1.9 (2.1-6.9); NEUTROPHILS % 38.9 % (38.7-80.0); PLATELET COUNT 289 x10e3/uL (140-360); RED BLOOD COUNT 2.98 x10e6/uL (3.6-5.1); RED CELL DISTRIBUTION WIDTH 17.2 % (11.7-14.4)
--- NOTE | 2019-07-04 06:41 | NUR ---
patient is resting in the bed. bed is in the lowest position and call light is within reach. denies pain or discomfort at this time.
[2019-07-04 06:58] LABS: ALBUMIN 2.6 g/dL (3.5-5.0); ALBUMIN/GLOBULIN RATIO 0.6 (0.8-2.0); ANION GAP 14.5 mmol/L (8-16); CALCIUM 8.4 mg/dL (8.4-10.2); CREATININE, SERUM 1.04 mg/dL (0.57-1.11); POTASSIUM 3.5 mmol/L (3.5-5.1)
[2019-07-04] MEDS: BUDESONIDE/FORMOTEROL 160/4.5MCG INHALER INH SCH ×2 (07:00→19:55)
[2019-07-04 07:16] LABS: CHOL/HDL RATIO 3.1 (3.0-3.6)
--- NOTE | 2019-07-04 07:20 | NUR ---
RECD PT IN BED RESTING ,NO S/S DISCOMFORT.JEAN TO BSD CLEAR YELLOW URINE.
[2019-07-04 07:35] LABS: THYROID STIMULATING HORMONE 2.466 uIU/mL (0.350-4.940)
[2019-07-04] MEDS ORDERED: CITRATE OF MAGNESIA 300ML BOTTLE PO ONE ×2 (08:00)
[2019-07-04 08:18] LABS: EOSINOPHILS % (MANUAL) 5 % (0-7); LYMPHOCYTES % (MANUAL) 45 % (19-48); MONOCYTES % (MANUAL) 8 % (3.4-9.0); NEUTROPHILS % (MANUAL) 42 % (40-74); PLATELET ESTIMATE ADEQUATE; PLATELET MORPHOLOGY COMMENT NORMAL; RBC MORPHOLOGY COMMENT NORMAL
[2019-07-04] MEDS: FUROSEMIDE INJ 10 MG/ML 4 ML VIAL IV SCH (08:37)
[2019-07-04] MEDS: AMITRIPTYLINE HCL 25 MG TAB PO SCH ×2 (08:48→17:00)
[2019-07-04] MEDS: VERAPAMIL HCL 120 MG TABSR PO SCH (08:48)
[2019-07-04] MEDS: PANTOPRAZOLE SOD 40 MG TABEC PO SCH (08:48)
[2019-07-04] MEDS: MONTELUKAST SODIUM 10 MG TAB PO SCH (08:48)
[2019-07-04] MEDS: GABAPENTIN 100 MG CAP PO SCH ×3 (08:48→20:24)
--- NOTE | 2019-07-04 09:30 | NUR ---
DR WATSOND HERE NO NEW ORDERS.
[2019-07-04] MEDS: CEFEPIME 1GM/NS 0.9% 50 ML 50 ML IV SCH ×2 (10:00→21:30)
[2019-07-04] MEDS ORDERED: POTASSIUM CHLORIDE 20 MEQ TAB CR PO ONE (10:35)
[2019-07-04] MEDS: VANCOMYCIN 1GM/NS 250 ML 250 ML IV SCH ×2 (11:01→22:30)
--- NOTE | 2019-07-04 16:16 | NUR ---
SPOKE WITH DR CHEN -PT MEDICALLY STABLE TO HAVE COLONOSCOPY.PAGED DR.M CARREON
--- NOTE | 2019-07-04 18:12 | NUR ---
PT UP IN BED RESTING NO DISTRESS NTOED,DENIES PAIN.
--- NOTE | 2019-07-04 19:55 | NUR ---
RECD PT IN BEDAOX3 RESPIRATIONS ARE EVEN AND UNLABORED DENIES PAIN ,NO S/S DISCOMFORT.JEAN INTACT DRAINING CLEAR YELLOW URINE..CALL LIGHT WITH IN REACH .CONTINUE TO MONITOR
[2019-07-04] MEDS: AMIODARONE HCL 200 MG TAB PO SCH (20:24)
[2019-07-05] VITALS: BP 136/59
[2019-07-05] MEDS: IPRATROPIUM BROMIDE 0.02% 2.5 ML NEB NEB SCH ×4 (01:55→19:36)
[2019-07-05 04:00] VITALS: BP 138/62
[2019-07-05] MEDS ORDERED: IRON SUCROSE 100 MG in SODIUM CHLORIDE 0.9% 100 ML 100 ML IV SCH (05:00)
[2019-07-05] MEDS ORDERED: BISACODYL 5 MG TAB EC PO ONE ×3 (05:00→06:00)
[2019-07-05] MEDS: NYSTATIN SUSPENSION 5 ML UDC PO SCH ×3 (06:00→18:49)
--- NOTE | 2019-07-05 06:28 | NUR ---
PT IS NPO AFTER 9AM .ORDER TO DO COLONOSCOPY TODAY .PT HAD DUCOLAX AND MAGCITRATE .DENIES PAIN CALL LIGHT WITH IN REACH .CONTINUE TO MONITOR
[2019-07-05] MEDS ORDERED: CITRATE OF MAGNESIA 300ML BOTTLE PO ONE ×2 (07:00→09:00)
[2019-07-05] MEDS: BUDESONIDE/FORMOTEROL 160/4.5MCG INHALER INH SCH ×2 (07:00→19:36)
--- NOTE | 2019-07-05 07:12 | NUR ---
BEDSIDE REPORT GIVEN TO THE ONCOMING NURSE
--- NOTE | 2019-07-05 07:15 | NUR ---
F/C INSERTED ON 07/02/19
--- NOTE | 2019-07-05 07:25 | NUR ---
PATIENT SITTING AT BED SIDE RECEIVING NEB TREATMENT, NO DISTRESS NOTED. JEAN CATHETER DRAINING CLEAR YELLOW URINE. BED IN LOWER POSITION, CALL LIGHT AT REACH.
[2019-07-05] MEDS: IRON SUCROSE 100 MG in SODIUM CHLORIDE 0.9% 100 ML 100 ML IV SCH (08:30)
[2019-07-05] MEDS: ONDANSETRON HCL INJ 2MG/ML 2ML 2 MG/ML VIAL IV PRN ×2 (08:50→14:10)
[2019-07-05] MEDS: VERAPAMIL HCL 120 MG TABSR PO SCH (09:00)
[2019-07-05] MEDS: AMITRIPTYLINE HCL 25 MG TAB PO SCH ×2 (09:00→17:16)
[2019-07-05] MEDS: GABAPENTIN 100 MG CAP PO SCH ×3 (09:00→21:21)
[2019-07-05] MEDS: FUROSEMIDE INJ 10 MG/ML 4 ML VIAL IV SCH (09:05)
[2019-07-05] MEDS: CYANOCOBALAMIN INJ 1,000 MCG/ML VIAL IM SCH (09:05)
--- NOTE | 2019-07-05 09:51 | NUR ---
SPOKE WITH MD REGARDING ABNORMAL LAB RESULT, NEW ORDER RECEIVED.
[2019-07-05] MEDS: CEFEPIME 1GM/NS 0.9% 50 ML 50 ML IV SCH ×2 (10:24→22:30)
[2019-07-05] MEDS: BISACODYL 10 MG SUPP PR PRN (10:46)
--- NOTE | 2019-07-05 11:26 | NUR ---
SPOKE WITH MD REGARDING ABNORMAL LAB RESULT, NEW ORDER RECEIVED.
[2019-07-05 12:00] VITALS: BP 89/51
--- NOTE | 2019-07-05 12:13 | NUR ---
PATIENT IS ON PREP FOR COLONOSCOPY, NO STOOL NOTED. PATIENT REQUESTED THE DULCOLAX SUPPOSITORY, GIVEN. PATIENT ASSISTED TO THE RESTROOM FOR A BM. AFTER SOME TIME IN THE RESTROOM, SHE WAS STILL STRAINING, STILL NO BM. B/P CHECKED WITH THE READING OF 89/57. PATIENT FINALLY HAD A FORMED STOOL. ASSISTED BACK TO BED BY 3 STAFFS. B/P RECHECKED WITH THE READING OF 108/55. PATIENT STATED THAT SHE IS FEELING BETTER AND WANTS TO CALL HER SON. PHONE PROVIDED. BED IN LOWER POSITION AND LOCKED. CALL LIGHT AT REACH. CALL PLACED TO DR CARREON, AWAITING CALL BACK.
--- NOTE | 2019-07-05 13:40 | NUR ---
CALL BACK RECEIVED FROM DR CARREON. NOTIFIED OF PATIENT'S CONDITION. NEW ORDER RECEIVED.
--- NOTE | 2019-07-05 15:09 | NUR ---
Nutrition Screen Note RD Recommendation for Physician: - When feasible, ADAT to Cardiac. Fluid restriction per MD. Plan of Care: RD following, monitoring for tolerance and adequacy Nutrition reason for involvement: Early LOS Primary Diagnose(s): fever, pneumonia PMH: Afib, cholecystectomy, hernia surgery, lymphoma in 2011, GI surgery Ht: 65 in Wt: 200.13 lb BMI: 33.3 kg/m2 IBW: [address] Assessment: (07/05) 84 YOF admitted for fever and PNA, seen today for early LOS. Pt reports good appetite and po intake up until a week before admit. Pt denies any GI distress, just reports "I didn't have an appetite." Pt with avg 75% meal intake per flow sheets, reports poor appetite today- diet advance to CL. Pt pending colonoscopy tomorrow, not feeling well at time of visit. Per MD notes pt with newly diagnosed CHF, will monitor for diet education needs- not appropriate for diet education at this time. Pt reports UBW of 198#, no wt loss noted. Chart reviewed. Labs and meds reviewed. Will continue to monitor. Current Diet: Clear liquids Malnutrition Evaluation (07/05/19) The patient does not meet criteria for a specified degree of malnutrition at this time. Will re-evaluate at follow-up as appropriate. Energy intake: <75% of estimated energy requirements for >7 days Weight loss: No wt loss reported. UBW of 198# reported. Fat loss: none, ample tricep fold thickness Muscle loss: none, shoulder round Supporting Evidence: Fluid accumulation: none observed Functional Status: not assessed Diet Education Needs Assessment: Diet education not indicated at this time, on CL diet Diet tolerance: tolerating CL Nutrition Care Level: Low Signed: Radha Elizabeth RD, LD, [facility]
--- NOTE | 2019-07-05 15:49 | NUR ---
PATIENT IN BED WATCHING TV. SHE STATED " I AM FEELING BETTER". CALL LIGHT AT EASY REACH.
[2019-07-05 16:00] VITALS: BP 154/71
--- NOTE | 2019-07-05 16:07 | NUR ---
PATIENT IS REFUSING THE NURSE TO STAY CLOSE AND WATCH HER FOR SAFETY WHILE SHE IS IN THE RESTROOM. SHE STATED "GO, I AM FINE, I AM NOT GOING TO FALL".
[2019-07-05] MEDS: MONTELUKAST SODIUM 10 MG TAB PO SCH (17:16)
[2019-07-05] MEDS: PANTOPRAZOLE SOD 40 MG TABEC PO SCH (17:16)
--- NOTE | 2019-07-05 19:35 | NUR ---
RECEIVED PT IN [facility] RESTROOM .PT HAD BM HELPED THE PT BACK TO THE BED .PT IS ON CLEAR LIQUID DIET .CALL LIGHT WITH IN REACH .CONTINUE TO MONITOR
[2019-07-05 19:39] VITALS: BP 154/71
[2019-07-05 19:40] VITALS: BP 138/63
[2019-07-05] MEDS ORDERED: SODIUM CHLORIDE 0.9% IV SCH (21:00)
[2019-07-05] MEDS: AMIODARONE HCL 200 MG TAB PO SCH (21:21)
--- NOTE | 2019-07-05 21:24 | Consultation ---
DATE OF CONSULTATION: HISTORY OF PRESENT ILLNESS: Ms. Farmer is an 84-year-old white female, who has complicated medical history, paroxysmal atrial fibrillation, seasonal allergies, and hypertension. She has ruptured intestine 18 years ago. She was diagnosed with PCP pneumonia a few years ago. She has history of hysterectomy, cholecystectomy, abdominal wall hernia, lymphoma in 2011, treated at [facility] with chemo. The patient had a surgery after perforation of her viscus in 2011, history of asthma. The patient comes in at this time because she is not feeling well, feeling quite weak. The patient was admitted there, planned for her to have colonoscopy tomorrow, but she is anxious. The patient's sputum culture showed Haemophilus influenzae on June 30. Her urine cultures showing Enterococcus faecalis. Her blood culture has no growth. LABORATORY DATA: White count 4.9, hemoglobin 8.6, hematocrit 28. Sodium 140, potassium 3.5 with glucose of 120. She had chest x-ray, which showed interstitial edema. The patient was getting iron transfusion. The patient had running fever since admission till 07/03 about 100.2 to 103.2. MEDICATIONS: The patient is currently on Singulair, Elavil, Protonix, Neurontin, Lasix, Tylenol, and cefepime. PHYSICAL EXAMINATION: GENERAL: She is currently alert, oriented, does not seem to be in acute distress. VITAL SIGNS: Stable, currently afebrile. HEENT: Normocephalic, not icteric. NECK: Supple. No JVD. No lymphadenopathy. No thyromegaly. CHEST: Clear bilateral. HEART: S1, S2. No S3, S4, or murmur. ABDOMEN: Soft. Bowel sounds present. No tenderness. No hepatosplenomegaly. EXTREMITIES: No edema. SKIN: There is no rash. IMPRESSION: 1. Abdominal pain. 2. Anemia. 3. History of lymphoma. 4. Hypertension. 5. Asthma. 6. Fever on admission. I would recommend to obtain CT of the pelvis and chest to assess her pneumonia and also history of lymphoma. Anemia. GI is following. The patient is hesitant. We will refer to GI and the patient to make a decision. Obtain procalcitonin. Obtain CBC with diff. Further recommendation depending on the above finding. MD JAZ Talavera/ASHLY /[id number]
[2019-07-05] MEDS ORDERED: SODIUM CHLORIDE 0.9% 50ML 50 ML ONE (22:20)
[2019-07-05] MEDS ORDERED: IOPAMIDOL 370 MG/ML 200 ML INFUS..BTL INJ ONE (22:21)
--- NOTE | 2019-07-05 23:03 | Diagnostic Imaging Report ---
CT Abdomen And Pelvis with Intravenous Contrast INDICATION: ^r/o lymphoma ^[id number] ^2224 TECHNIQUE: Thin collimation axial images obtained from the diaphragm to the level of the pubic symphysis following the uneventful administration of 100 cc of low osmolar, nonionic intravenous contrast. Dose reduction techniques used: Automated exposure control, adjustment of the mAs and/or kVp according to patient size, standardized low-dose protocol, and/or iterative reconstruction technique. RADIATION DOSE: Total DLP: 627.52 mGy*cm Estimated effective dose: (DLP x 0.015 x size factor) mSv CTDIvol has been reviewed. It is below the limits set by the Radiation Protocol Committee (RPC). COMPARISON: CT chest 04/26/2019, CT abdomen/pelvis 06/26/2014. ABDOMEN FINDINGS: Lung Bases: Multifocal groundglass airspace opacities. No solid nodules. Focus of chronic atelectasis and bronchiectasis in the posterior lingula is stable. The heart is mildly enlarged Liver: Normal attenuation. Low attenuating lesion in segment 6 measures 1.1 x 1.5 cm and appears solid. Gallbladder: Absent. No biliary ductal dilatation. Pancreas: Normal attenuation without mass or ductal dilatation. Spleen: Normal in size. No evidence of mass. Adrenal Glands: The right adrenal gland is normal. Nodular thickening of the left adrenal gland is stable. Kidneys: Right: 4 mm calculus in the lower pole. No soft tissue mass. No hydronephrosis. Left: Multiple calculi measure up to 3 mm. No soft tissue mass. No hydronephrosis. Lymph Nodes: No enlarged abdominal or retroperitoneal lymph nodes. Aorta: Normal in diameter with diffuse calcifications PELVIS FINDINGS: Bowel: Stomach: Normal. Small Bowel: Normal in caliber with normal wall thickness. Large Bowel: Fluid throughout the large bowel without mural thickening or pericolonic inflammation. Diverticulosis coli of the sigmoid colon. No associated inflammation. Appendix: Not visualized. Bladder: Collapsed throughout a Walsh catheter. The uterus is absent. No adnexal mass Peritoneum/retroperitoneum: No free fluid or fluid collection. Bones: Grade 1 anterolisthesis of L4 on L5. No spondylolysis. Mild to moderate generative changes of the lower thoracic spine. No compression deformity. No lytic or blastic lesions. Soft tissues: Unremarkable. IMPRESSION: 1. New hepatic mass of uncertain etiology. Recommend further characterization with CT dedicated to the liver. 2. Nonspecific multifocal airspace opacities may represent pneumonia in the appropriate clinical setting. No splenomegaly or lymphadenopathy. 3. Diverticulosis coli. No evidence for bowel obstruction or inflammation. 4. Bilateral intrarenal calculi. No obstructive uropathy. Signed by: Dr. Shalom Miller MD on 07/05/2019 11:01 PM
[2019-07-06] VITALS (8 sets, daily range): BP systolic 112–142; BP diastolic 57–83
[2019-07-06] MEDS ORDERED: SODIUM CHLORIDE 0.9% 250ML 250 ML IV ONE (00:45)
[2019-07-06] MEDS: IPRATROPIUM BROMIDE 0.02% 2.5 ML NEB NEB SCH ×4 (01:37→19:10)
[2019-07-06] MEDS ORDERED: BISACODYL 5 MG TAB EC PO ONE ×3 (05:00→06:00)
--- NOTE | 2019-07-06 05:36 | NUR ---
PT HAD 2 BM AND NOT CLEAR .PT GFR IS 51 .DR AVILES HAS GIVEN ORDER FOR HYDRATION FOR DOING ULTRA SOUND OF THE ABD AND PELVIC GIVEN 750ML NS BOLUS .PT IS NPO AFTER 7AM FOR COLONOSCOPY .MEDICATED WITH DUCOLAX .CALL LIGHT WITH IN REACH .CONTINUE TO MONITOR
[2019-07-06] MEDS: NYSTATIN SUSPENSION 5 ML UDC PO SCH ×5 (06:00→23:28)
[2019-07-06] MEDS ORDERED: CITRATE OF MAGNESIA 300ML BOTTLE PO ONE (07:00)
--- NOTE | 2019-07-06 07:33 | NUR ---
BEDSIDE REPORT GIVEN TO THE ONCOMING NURSE
[2019-07-06] MEDS: BUDESONIDE/FORMOTEROL 160/4.5MCG INHALER INH SCH ×2 (07:45→19:27)
[2019-07-06] MEDS: AMITRIPTYLINE HCL 25 MG TAB PO SCH ×2 (09:00→17:30)
[2019-07-06] MEDS: VERAPAMIL HCL 120 MG TABSR PO SCH (09:00)
[2019-07-06] MEDS: GABAPENTIN 100 MG CAP PO SCH ×3 (09:00→20:56)
[2019-07-06] MEDS: MONTELUKAST SODIUM 10 MG TAB PO SCH (09:00)
[2019-07-06] MEDS: PANTOPRAZOLE SOD 40 MG TABEC PO SCH (09:00)
[2019-07-06 09:59] LABS: INR 1.04; PARTIAL THROMBOPLASTIN TIME 37.8 seconds (23.8-35.5); PROTHROMBIN TIME 14.2 seconds (11.9-14.5)
[2019-07-06] MEDS: FUROSEMIDE INJ 10 MG/ML 4 ML VIAL IV SCH (10:02)
[2019-07-06] MEDS: CYANOCOBALAMIN INJ 1,000 MCG/ML VIAL IM SCH (10:02)
[2019-07-06] MEDS: IRON SUCROSE 100 MG in SODIUM CHLORIDE 0.9% 100 ML 100 ML IV SCH (10:02)
[2019-07-06] MEDS: CEFEPIME 1GM/NS 0.9% 50 ML 50 ML IV SCH ×2 (11:00→23:28)
[2019-07-06] MEDS ORDERED: GLUCAGON FOR INJ 1 MG VIAL ONE (12:25)
--- NOTE | 2019-07-06 13:26 | Progress Note ---
DATE: SUBJECTIVE: Ms. Farmer feeling slightly better. Still concerned about her cough. I have discussed with Dr. Avery Rivers. The CAT scan did reveal that she had a liver mass, which is new. The patient does not want us to do a biopsy here. She would like to go at [facility]. She has multifocal airspace opacities, may represent pneumonia. PHYSICAL EXAMINATION: GENERAL: She is currently alert and oriented. Does not seem to be in acute distress. VITAL SIGNS: Stable, currently afebrile. HEENT: Not icteric. NECK: Supple. CHEST: Clear. IMPRESSION: 1. New liver mass. 2. Concerned about abnormal CAT scan of the lung, but this could be pneumonia. Other possibilities need to be ruled out. Such as malignancy, metastases. Continue with blood coverage of antibiotic for the time being. We will follow. [facility] /[id number]
[2019-07-06] MEDS: VANCOMYCIN 1GM/NS 250 ML 250 ML IV SCH (20:00)
--- NOTE | 2019-07-06 20:04 | NUR ---
RECEIVED PT IN BED AOX3 .DENIES PAIN .PT HAD COLONOSCOPY .F.C INTACT DRAINING CLEAR YELLOW URINE CALL LIGHT WITH IN REACH .CONTINUE TO MONITOR
[2019-07-06] MEDS: AMIODARONE HCL 200 MG TAB PO SCH (20:55)
[2019-07-07] VITALS (8 sets, daily range): BP systolic 121–142; BP diastolic 59–65
[2019-07-07] MEDS: NYSTATIN SUSPENSION 5 ML UDC PO SCH ×4 (06:35→23:32)
--- NOTE | 2019-07-07 06:55 | NUR ---
PT IS NPO AFTER BREAKFAST FOR EGD .DENIES PAIN .CALL LIGHT WITH IN REACH .CONTINUE TO MONITOR
--- NOTE | 2019-07-07 06:56 | NUR ---
BEDSIDE REPORT GIVEN TO THE ONCOMING NURSE
[2019-07-07] MEDS: BUDESONIDE/FORMOTEROL 160/4.5MCG INHALER INH SCH ×2 (07:00→08:59)
--- NOTE | 2019-07-07 07:00 | NUR ---
BEDSIDE REPORT GIVEN TO THE ONCOMING NURSE
[2019-07-07] MEDS: IPRATROPIUM BROMIDE 0.02% 2.5 ML NEB NEB SCH ×4 (07:10→21:45)
[2019-07-07] MEDS: AMITRIPTYLINE HCL 25 MG TAB PO SCH ×2 (08:21→17:18)
[2019-07-07] MEDS: FUROSEMIDE INJ 10 MG/ML 4 ML VIAL IV SCH (08:21)
[2019-07-07] MEDS: MONTELUKAST SODIUM 10 MG TAB PO SCH (08:21)
[2019-07-07] MEDS: GABAPENTIN 100 MG CAP PO SCH ×3 (08:21→21:02)
[2019-07-07] MEDS: CYANOCOBALAMIN INJ 1,000 MCG/ML VIAL IM SCH (08:21)
[2019-07-07] MEDS: VANCOMYCIN 1GM/NS 250 ML 250 ML IV SCH ×2 (08:21→20:24)
[2019-07-07] MEDS: PANTOPRAZOLE SOD 40 MG TABEC PO SCH (08:21)
[2019-07-07] MEDS: IRON SUCROSE 100 MG in SODIUM CHLORIDE 0.9% 100 ML 100 ML IV SCH (09:00)
[2019-07-07] MEDS: VERAPAMIL HCL 120 MG TABSR PO SCH (09:00)
[2019-07-07] MEDS: CEFEPIME 1GM/NS 0.9% 50 ML 50 ML IV SCH ×2 (10:30→23:20)
--- NOTE | 2019-07-07 19:10 | NUR ---
RECEIVED THE PATIENT IN REPORT.LYEING IN THE BED.STABLE CONDITION.
[2019-07-07] MEDS ORDERED: LIDOCAINE HCL 2% LOCAL INJ 5 ML SDV VIAL INJ ONE (19:38)
[2019-07-07] MEDS ORDERED: PROPOFOL IV EMULSION 10 MG/ML 50 ML VIAL ONE (19:38)
[2019-07-07] MEDS ORDERED: PROPOFOL IV EMULSION 10 MG/ML 20 ML VIAL ONE (19:38)
--- NOTE | 2019-07-07 20:08 | Operative Report ---
DATE OF PROCEDURE: 07/07/2019 SURGEON: Chencho Rivers MD PROCEDURE: EGD with biopsies. INDICATIONS FOR EGD: Iron deficiency anemia, history of GERD. MEDICATIONS: The patient was done under MAC, please see anesthesiologist's note. PROCEDURE IN DETAIL: With the patient in the left lateral decubitus position, the flexible fiberoptic Olympus gastroscope was introduced into the esophagus under direct visualization without any difficulty. There was some patchy erythema noted in distal esophagus. The scope was then advanced with ease into the stomach and the mucosa overlying the antrum revealed some patchy intense erythema and moderate edema, and biopsies were obtained and sent to stain for H. pylori. There were some patchy nodularity noted in the body of the stomach and biopsies were obtained. The pylorus was of normal contour and shape, was intubated with ease and the scope was advanced all the way to the second portion of the duodenum. Biopsies were obtained from the proximal second portion and duodenal bulb to rule out sprue. The scope was then withdrawn back into the stomach and retroflexed, mucosa overlying the fundus and the cardia appeared to be within normal limits. The scope was then straightened out, it was subsequently withdrawn, and the patient tolerated the procedure well. IMPRESSION: 1. Mild distal esophagitis. 2. Gastritis, biopsied, biopsies sent to stain for Helicobacter pylori. 3. Patchy nodularity, body of stomach, biopsies obtained. 4. Rule out sprue. PLAN: Follow up histology. Initiate Protonix 40 mg 1 p.o. before meals b.i.d. and Carafate 1 g p.o. before meals t.i.d. and at bedtime. Chencho Rivers MD [facility] [place]/[facility] /[id number] cc: Avery Rivers MD
--- NOTE | 2019-07-07 20:32 | Operative Report ---
DATE OF PROCEDURE: 07/06/2019 SURGEON: Chencho Rivers MD PROCEDURE: Colonoscopy and polypectomy. INDICATION FOR PROCEDURE: Iron deficiency anemia. MEDICATIONS: The patient was done under MAC, please see anesthesiologist's note. PROCEDURE IN DETAIL: With the patient in the left lateral decubitus position, a flexible fiberoptic Olympus colonoscope was inserted into the rectum with ease and advanced all the way to the cecum. It was then withdrawn slowly and mucosa overlying the cecum appeared to be within normal limits. Approximately, an 8 mm polyp was hot snared from the mid ascending colon and that was hemoclipped x1. The rest of the ascending colon appeared to be within normal limits. One polyp was hot snared and one polyp was hot biopsied from the transverse colon. Diverticular disease was noted to involve the left colon. The rectum appeared to be within normal limits. The scope was then retroflexed into the distal rectum and moderate-sized internal hemorrhoids were noted, none of which was actively bleeding. The scope was then straightened out, it was subsequently withdrawn, and the patient tolerated the procedure well. IMPRESSION: 1. Ascending colon polyp, approximately 8 mm in size, sessile, removed per snare electrocautery and site hemoclipped x1. 2. Transverse colon polyps x2, one cold snared and one hot biopsied. 3. Diverticulosis. 4. Internal hemorrhoids, none actively bleeding. PLAN: Follow up histology. Findings do not necessarily explain the patient's anemia. We will need an EGD. Chencho Rivers MD [facility] [place] /[id number] cc: Avery Rivers MD
[2019-07-07] MEDS: AMIODARONE HCL 200 MG TAB PO SCH (21:02)
--- NOTE | 2019-07-07 21:10 | NUR ---
PATIENT REFUSED TO REMOVE JEAN.NOTIFIED TO.DR.S CARREON.ORDERED TO D/C MIRANDA AM .ASSESSMENT DONE.NO RESP.DISTRESS. NO PAIN VOICED.BED LOCKED AND IN LOWEST POSITION.PHONE AND CALL LIGHT WITHIN REACH.INSTRUCTED TO CALL FOR ASSISTANCE NEEDED.
[2019-07-08] VITALS: BP 132/67
--- NOTE | 2019-07-08 00:20 | NUR ---
Walsh care given.patient tolerated well.
[2019-07-08] MEDS: IPRATROPIUM BROMIDE 0.02% 2.5 ML NEB NEB SCH ×3 (01:50→13:00)
[2019-07-08 04:00] VITALS: BP 135/63
--- NOTE | 2019-07-08 06:11 | Diagnostic Imaging Report ---
EXAMINATION: CHEST SINGLE (PORTABLE) COMPARISON: Chest x-ray 07/02/2019 INDICATION ^CHF ^[id number] ^0520 ^Y DISCUSSION: Frontal view of the chest obtained at 0535 hours. HEART AND MEDIASTINUM: Stable cardiomegaly and prominence of the pulmonary arteries LINES: None. LUNGS: Pulmonary vascular congestion has improved. Prominent pulmonary interstitium has resolved. No confluent infiltrates. PLEURA: No pleural effusion or pneumothorax. BONES AND SOFT TISSUES: No focal osseous lesion. The soft tissues are normal. IMPRESSION: Improved vascular congestion and prominent pulmonary interstitium. Signed by: Dr. Shalom Miller MD on 07/08/2019 6:08 AM
[2019-07-08] MEDS: NYSTATIN SUSPENSION 5 ML UDC PO SCH (06:13)
--- NOTE | 2019-07-08 06:30 | NUR ---
MIRANDA D/C @ 0630 AM.PATIENT IS DUE TO VOID.
--- NOTE | 2019-07-08 07:00 | NUR ---
Bed side shift report given to oncoming Rn.stable condition.
[2019-07-08] MEDS: BUDESONIDE/FORMOTEROL 160/4.5MCG INHALER INH SCH (07:41)
[2019-07-08 08:00] VITALS: BP 147/61
[2019-07-08] MEDS: IRON SUCROSE 100 MG in SODIUM CHLORIDE 0.9% 100 ML 100 ML IV SCH (08:00)
[2019-07-08 08:25] VITALS: BP 147/61
[2019-07-08] MEDS: FUROSEMIDE INJ 10 MG/ML 4 ML VIAL IV SCH (09:00)
[2019-07-08] MEDS: PANTOPRAZOLE SOD 40 MG TABEC PO SCH (09:48)
[2019-07-08] MEDS: CYANOCOBALAMIN INJ 1,000 MCG/ML VIAL IM SCH (09:48)
[2019-07-08] MEDS: MONTELUKAST SODIUM 10 MG TAB PO SCH (09:48)
[2019-07-08] MEDS: VERAPAMIL HCL 120 MG TABSR PO SCH (09:48)
[2019-07-08] MEDS: GABAPENTIN 100 MG CAP PO SCH (09:48)
[2019-07-08] MEDS: AMITRIPTYLINE HCL 25 MG TAB PO SCH (09:48)
[2019-07-08] MEDS: CEFEPIME 1GM/NS 0.9% 50 ML 50 ML IV SCH (10:30)
[2019-07-08 11:02] VITALS: BP 124/58
--- NOTE | 2019-07-08 11:15 | NUR ---
ORDER RECEIVED FOR HOME O2. CM MET W THE PT AT THE BEDSIDE. DISCUSSED CHOICE. STATES [employer] IS THE COMPANY THAT PROVIDED HER 'S O2 AND SHE WOULD LIKE TO USE THEM. STATES SHE DID NOT WANT TOO MANY PORTABLE TANKS, BECAUSE HER HAD TOO MANY WHEN HE . CHOICE LETTER WAS SIGNED AND COPY TO THE CHART. REFERRAL WAS FAXED TO [employer] @ OFF: [phone] / FAX: [phone]. NOTIFIED FABIENNE Maxwell / LIAANABELA OF REFERAL AND DC HOME TODAY
--- NOTE | 2019-07-08 13:23 | NUR ---
PT RECEIVED O2 TO THE BEDSIDE. IMM LETTER EXPLAINED TO PT. PT VERBALIZED UNDERSTANDING. IMM LETTER SIGNED. COPY TO PT AND COPY TO CHART.
[2019-07-08] MEDS ORDERED: LASIX40 MG PO (15:32)
[2019-07-08] MEDS ORDERED: K DUR10 MEQ PO (15:33)
[2019-07-08 16:17] VITALS: BP 133/61
--- NOTE | 2019-07-08 17:33 | NUR ---
Pt discharged at this time. Pt and family verbalized understanding of all discharge instructions and follow up appts. Pt was discahrged with home oxygen and was able to demonstrate proper use of oxygen.
== END 2019-07-08 17:28 | disposition home or self-care (01) | DRG 177 ==
LOC: ER 23:08 → ERHOLD 06-30 02:40 → MED/SURG3 06-30 17:09
PROC: 0DBK8ZX Excision of Ascending Colon, Via Natural or Artificial Opening Endoscopic, Diagnostic (ICD-10-PCS; 2019-07-07)
PROC: 0DBL8ZX Excision of Transverse Colon, Via Natural or Artificial Opening Endoscopic, Diagnostic (ICD-10-PCS; 2019-07-07)
PROC: 0DB78ZX Excision of Stomach, Pylorus, Via Natural or Artificial Opening Endoscopic, Diagnostic (ICD-10-PCS; principal; 2019-07-07 13:30)
DX: J15.6 Pneumonia due to other Gram-negative bacteria (principal); I50.43 Acute on chronic combined systolic (congestive) and diastolic (congestive) heart failure; N39.0 Urinary tract infection, site not specified; B37.0 Candidal stomatitis; B02.29 Other postherpetic nervous system involvement; I11.0 Hypertensive heart disease with heart failure; I48.0 Paroxysmal atrial fibrillation; Z85.72 Personal history of non-Hodgkin lymphomas; I83.90 Asymptomatic varicose veins of unspecified lower extremity; J45.909 Unspecified asthma, uncomplicated; D50.0 Iron deficiency anemia secondary to blood loss (chronic); B95.2 Enterococcus as the cause of diseases classified elsewhere; B96.89 Other specified bacterial agents as the cause of diseases classified elsewhere; D51.3 Other dietary vitamin B12 deficiency anemia; E66.9 Obesity, unspecified; Z68.33 Body mass index [BMI] 33.0-33.9, adult; R16.0 Hepatomegaly, not elsewhere classified; J42 Unspecified chronic bronchitis
CPT/HCPCS: 36415; 43239; 45378; 45384; 45385; 71045; 74177; 80048; 80053; 80061; 80202; 81001; 82270; 82550; 82553; 82607; 82728; 82746; 83518; 83540; 83605; 83880; 84443; 84466; 84484; 85014; 85018; 85025; 85045; 85610; 85730; 86850; 86900; 86920; 87040; 87070; 87086; 87186; 87205; 87400; 88305; 88312; 93005; 93306; 94640; 94664; 97139; 99284; J0456; J0692; J1610; J1756; J1940; J2001; J2405; J3370; J3420; J7030; J7040; J7050; Q9967

== ENCOUNTER → 2021-02-11 | Outpatient (CLI) | payer MEDICARE ==
[~2021-02-11] MED LIST changes: +GABAPENTIN100 MG PO; +IOPAMIDOL 370 MG/ML 200 ML INFUS..BTL INJ ONE; +K DUR10 MEQ PO; +SODIUM CHLORIDE 0.9% 500ML 500 ML ONE; +SODIUM CHLORIDE 0.9% 50ML 50 ML ONE
[2021-02-11 10:16] LABS: CREATININE, SERUM 1.1 mg/dL (0.57-1.11)
== END ==
LOC: CT 09:24
PROVIDERS: ATTEND Internal Medicine Gastroenterology
DX: R13.19 Other dysphagia (principal); R10.9 Unspecified abdominal pain
CPT/HCPCS: 36415; 74177; 82565; 84520; 96360; J7040; Q9967

== ENCOUNTER → 2021-10-10 | Outpatient (CLI) | payer MEDICARE ==
[~2021-10-10] MED LIST changes: -IOPAMIDOL 370 MG/ML 200 ML INFUS..BTL INJ ONE; -SODIUM CHLORIDE 0.9% 500ML 500 ML ONE; -SODIUM CHLORIDE 0.9% 50ML 50 ML ONE
== END ==
LOC: RAD 09:42
PROVIDERS: ATTEND Internal Medicine Gastroenterology
DX: M79.605 Pain in left leg (principal); M79.604 Pain in right leg
CPT/HCPCS: 93970

== ENCOUNTER → 2021-12-04 | Day surgery (SDC) | payer MEDICARE ==
[2021-12-02 10:51] LABS: BASOPHILS % 0.2 % (0.0-1.0); EOSINOPHILS # (AUTO) 0.1 (0.0-0.4); EOSINOPHILS % 1.5 % (0.0-6.0); HEMATOCRIT 37.1 % (34.2-44.1); HEMOGLOBIN 11.6 g/dL (12.0-16.0); LYMPHOCYTES # (AUTO) 2.8 (1.0-3.2); LYMPHOCYTES % 60.6 % (18.0-39.1); MEAN CORPUSCULAR HEMOGLOBIN 30.3 pg (28-32); MEAN CORPUSCULAR HGB CONC 31.3 g/dL (31-35); MEAN CORPUSCULAR VOLUME 96.9 fL (81-99); MONOCYTES # (AUTO) 0.4 (0.2-0.8); MONOCYTES % 8.6 % (4.4-11.3); NEUTROPHILS # (AUTO) 1.4 (2.1-6.9); NEUTROPHILS % 28.9 % (38.7-80.0); PLATELET COUNT 221 x10e3/uL (140-360); RED BLOOD COUNT 3.83 x10e6/uL (3.6-5.1); RED CELL DISTRIBUTION WIDTH 15.4 % (11.7-14.4)
[~2021-12-04] MED LIST changes: +FENTANYL CITRATE/PF 100MCG/2 ML INJ ONE; +HYOSCYAMINE SULFATE 0.5 MG/ML INJ ONE; +LIDOCAINE HCL 2% LOCAL INJ 5 ML SDV VIAL INJ ONE; +MIDAZOLAM HCL 2 MG/2 ML VIAL ONE; +PHENYLEPHRINE HCL 1% 10 MG/ML VIAL ONE; +PROPOFOL IV EMULSION 10 MG/ML 20 ML VIAL ONE
[2021-12-04 14:09] VITALS: BP 119/65
== END | disposition home or self-care (01) ==
LOC: OR 09:22
PROVIDERS: ATTEND Internal Medicine Gastroenterology
DX: Z09 Encounter for follow-up examination after completed treatment for conditions other than malignant neoplasm (principal); D12.3 Benign neoplasm of transverse colon; D12.4 Benign neoplasm of descending colon; K57.30 Diverticulosis of large intestine without perforation or abscess without bleeding; K64.8 Other hemorrhoids; K21.9 Gastro-esophageal reflux disease without esophagitis; Z71.3 Dietary counseling and surveillance; I10 Essential (primary) hypertension; I48.91 Unspecified atrial fibrillation; J45.909 Unspecified asthma, uncomplicated; Z88.6 Allergy status to analgesic agent; Z01.810 Encounter for preprocedural cardiovascular examination; Z01.812 Encounter for preprocedural laboratory examination; Z20.822 Contact with and (suspected) exposure to COVID-19; Z79.82 Long term (current) use of aspirin; Z79.899 Other long term (current) drug therapy; Z68.30 Body mass index [BMI] 30.0-30.9, adult; Z85.72 Personal history of non-Hodgkin lymphomas
CPT/HCPCS: 0223U; 36415; 45380; 85025; 88305; 93005; J1980; J2001; J2250; J2370; J2704; J3010; 45378; 45385

== ENCOUNTER → 2022-02-06 | Outpatient (CLI) | payer MEDICARE ==
[~2022-02-06] MED LIST changes: -FENTANYL CITRATE/PF 100MCG/2 ML INJ ONE; -HYOSCYAMINE SULFATE 0.5 MG/ML INJ ONE; -LIDOCAINE HCL 2% LOCAL INJ 5 ML SDV VIAL INJ ONE; -MIDAZOLAM HCL 2 MG/2 ML VIAL ONE; -PHENYLEPHRINE HCL 1% 10 MG/ML VIAL ONE; -PROPOFOL IV EMULSION 10 MG/ML 20 ML VIAL ONE
== END ==
LOC: DX 02-05 08:49
PROVIDERS: ATTEND Internal Medicine Gastroenterology
DX: R93.3 Abnormal findings on diagnostic imaging of other parts of digestive tract (principal); Z86.010 Personal history of colon polyps
CPT/HCPCS: 74270

== ENCOUNTER → 2022-04-07 | Outpatient (CLI) | payer MEDICARE ==
[~2022-04-07] MED LIST changes: +DIATRIZOATE MEGL/DIATRIZOA SOD 30 ML BTL PO ONE; +IOPAMIDOL 370 MG/ML 100 ML INFUS..BTL INJ ONE; +SODIUM CHLORIDE 0.9% 500ML 500 ML ONE
[2022-04-07 14:40] LABS: CREATININE, SERUM 1.37 mg/dL (0.57-1.11)
== END ==
LOC: CT 13:36
PROVIDERS: ATTEND Internal Medicine Gastroenterology
DX: R10.9 Unspecified abdominal pain (principal)
CPT/HCPCS: 36415; 74177; 82565; 84520; J7040; Q9963; Q9967

== ENCOUNTER 2022-04-15 17:14 | Emergency (ER) | payer MEDICARE ==
[~2022-04-15] VITALS: Ht 165.1 cm; Wt 81.6 kg
[~2022-04-15 17:14] MED LIST changes: -DIATRIZOATE MEGL/DIATRIZOA SOD 30 ML BTL PO ONE; -IOPAMIDOL 370 MG/ML 100 ML INFUS..BTL INJ ONE; -SODIUM CHLORIDE 0.9% 500ML 500 ML ONE
[2022-04-15] MEDS ORDERED: ONDANSETRON HCL INJ 2MG/ML 2ML 2 MG/ML VIAL IV STA (17:57)
[2022-04-15] MEDS ORDERED: SODIUM CHLORIDE 0.9% 1000ML 1,000 ML IV STA (17:57)
[2022-04-15] MEDS ORDERED: SODIUM CHLORIDE 0.9% 1000ML 1,000 ML ONE ×2 (18:15→21:01)
[2022-04-15 18:26] LABS: EOSINOPHILS % 0.5 % (0.0-6.0); HEMATOCRIT 36.7 % (34.2-44.1); HEMOGLOBIN 11.1 g/dL (12.0-16.0); LYMPHOCYTES # (AUTO) 0.7 (1.0-3.2); LYMPHOCYTES % 18.1 % (18.0-39.1); MEAN CORPUSCULAR HEMOGLOBIN 30.7 pg (28-32); MEAN CORPUSCULAR HGB CONC 30.2 g/dL (31-35); MEAN CORPUSCULAR VOLUME 101.4 fL (81-99); MONOCYTES # (AUTO) 0.2 (0.2-0.8); MONOCYTES % 5.8 % (4.4-11.3); NEUTROPHILS # (AUTO) 2.9 (2.1-6.9); NEUTROPHILS % 74.8 % (38.7-80.0); PLATELET COUNT 207 x10e3/uL (140-360); RED BLOOD COUNT 3.62 x10e6/uL (3.6-5.1); RED CELL DISTRIBUTION WIDTH 14.9 % (11.7-14.4)
[2022-04-15 18:50] LABS: ALBUMIN 3.7 g/dL (3.5-5.0); ALBUMIN/GLOBULIN RATIO 1.1 (0.8-2.0); ANION GAP 15.6 mmol/L (8-16); CALCIUM 8.5 mg/dL (8.4-10.2); CREATININE, SERUM 1.63 mg/dL (0.57-1.11); POTASSIUM 4.6 mmol/L (3.5-5.1)
[2022-04-15 18:54] LABS: AMYLASE 37 U/L (25-125); LIPASE 24 U/L (8-78)
[2022-04-15 18:56] LABS: CREATINE KINASE MB 1.1 ng/mL (0-5.0)
[2022-04-15] MEDS ORDERED: DIATRIZOATE MEGL/DIATRIZOA SOD 30 ML BTL PO ONE (19:19)
[2022-04-15] MEDS ORDERED: ONDANSETRON HCL INJ 2MG/ML 2ML 2 MG/ML VIAL ONE (21:01)
[2022-04-15] MEDS ORDERED: ONDANSETRON ODT4 MG PO (22:26)
== END 2022-04-15 22:40 | disposition home or self-care (01) ==
LOC: ER 18:57
DX: R10.31 Right lower quadrant pain (principal); G89.29 Other chronic pain; R11.2 Nausea with vomiting, unspecified; I10 Essential (primary) hypertension; I48.91 Unspecified atrial fibrillation; I25.10 Atherosclerotic heart disease of native coronary artery without angina pectoris; R94.31 Abnormal electrocardiogram [ECG] [EKG]
CPT/HCPCS: 36415; 74176; 80053; 82150; 82550; 82553; 83690; 84484; 85025; 93005; 99284; J2405; J7030; Q9963

== ENCOUNTER 2022-09-27 20:17 | Emergency (ER) | payer MEDICARE ==
[~2022-09-27] VITALS: Ht 165.1 cm; Wt 81.6 kg
[~2022-09-27 20:17] MED LIST changes: +ONDANSETRON ODT4 MG PO
[2022-09-27] MEDS ORDERED: SODIUM CHLORIDE FLUSH 10 ML SYR IV PRN (20:56)
[2022-09-27 21:25] LABS: INR 2.74; PROTHROMBIN TIME 29.4 seconds (11.9-14.5)
[2022-09-27 21:27] LABS: PARTIAL THROMBOPLASTIN TIME 86.5 seconds (23.8-35.5)
[2022-09-27 21:34] LABS: ALBUMIN 3.2 g/dL (3.5-5.0); ALBUMIN/GLOBULIN RATIO 0.7 (0.8-2.0); ANION GAP 14.4 mmol/L (8-16); CREATININE, SERUM 1.33 mg/dL (0.57-1.11); POTASSIUM 4.4 mmol/L (3.5-5.1)
[2022-09-27 21:35] LABS: BASOPHILS % 0.2 % (0.0-1.0); EOSINOPHILS % 0.3 % (0.0-6.0); HEMATOCRIT 34.6 % (34.2-44.1); HEMOGLOBIN 10.9 g/dL (12.0-16.0); LYMPHOCYTES # (AUTO) 1.6 (1.0-3.2); LYMPHOCYTES % 24.6 % (18.0-39.1); MEAN CORPUSCULAR HEMOGLOBIN 29.5 pg (28-32); MEAN CORPUSCULAR HGB CONC 31.5 g/dL (31-35); MEAN CORPUSCULAR VOLUME 93.5 fL (81-99); MONOCYTES # (AUTO) 0.7 (0.2-0.8); MONOCYTES % 11.4 % (4.4-11.3); NEUTROPHILS # (AUTO) 4.1 (2.1-6.9); NEUTROPHILS % 63.2 % (38.7-80.0); PLATELET COUNT 247 x10e3/uL (140-360); RED CELL DISTRIBUTION WIDTH 18.1 % (11.7-14.4)
[2022-09-27] MEDS ORDERED: ACETAMINOPHEN 325 MG TAB ONE (21:55)
[2022-09-27] MEDS ORDERED: ACETAMINOPHEN 325 MG TAB PO ONE (22:00)
[2022-09-28 00:01] VITALS: BP 121/56; PULSE 82; RESP 21; O2SAT 96
== END 2022-09-28 00:25 | disposition home or self-care (01) ==
LOC: ER 20:21
DX: N64.4 Mastodynia (principal); R23.3 Spontaneous ecchymoses; S20.214A Contusion of middle front wall of thorax, initial encounter; Z98.890 Other specified postprocedural states; I10 Essential (primary) hypertension; I48.91 Unspecified atrial fibrillation; I25.10 Atherosclerotic heart disease of native coronary artery without angina pectoris; J45.909 Unspecified asthma, uncomplicated; R94.31 Abnormal electrocardiogram [ECG] [EKG]
CPT/HCPCS: 36415; 71045; 71250; 74176; 80053; 83690; 84484; 85025; 85610; 85730; 93005; 99284

== ENCOUNTER → 2023-04-20 | Outpatient (REF) | payer MEDICARE | LOC: RAD 10:26 | PROVIDERS: ATTEND Family Medicine Adult Medicine | DX: R05.9 Cough, unspecified (principal) | CPT/HCPCS: 71046 ==

== ENCOUNTER 2024-03-01 14:12 | Inpatient (IN) | payer MEDICARE ==
[2024-03-01] VITALS (23 sets, daily range): BP systolic 95–113; BP diastolic 49–91; PULSE 71–102; RESP 15–22; TEMP 97.9–98.1; O2SAT 95–100
[~2024-03-01] VITALS: Ht 165.1 cm; Wt 66.7 kg
[~2024-03-01 14:12] MED LIST changes: +B-121000 MC1 PO; +BENZONATATE100 MG PO; +DIFLUCAN100 MG PO; +MUCINEX600 MG PO; +SYMBICORT 16010.2 GM INH; +SYNTHROID50 MCG PO
[2024-03-01 15:37] LABS: BASOPHILS % 0.5 % (0.0-1.0); EOSINOPHILS % 0.2 % (0.0-6.0); LYMPHOCYTES # (AUTO) 1.5 (1.0-3.2); LYMPHOCYTES % 24.3 % (18.0-39.1); MONOCYTES # (AUTO) 0.6 (0.2-0.8); MONOCYTES % 9.4 % (4.4-11.3); NEUTROPHILS # (AUTO) 3.8 (2.1-6.9); NEUTROPHILS % 63.8 % (38.7-80.0)
[2024-03-01 15:40] LABS: HEMATOCRIT 30.7 % (34.2-44.1); HEMOGLOBIN 9.5 g/dL (12.0-16.0); MEAN CORPUSCULAR HEMOGLOBIN 30.8 pg (28-32); MEAN CORPUSCULAR HGB CONC 30.9 g/dL (31-35); MEAN CORPUSCULAR VOLUME 99.7 fL (81-99); PLATELET COUNT 156 x10e3/uL (140-360); RED BLOOD COUNT 3.08 x10e6/uL (3.6-5.1); RED CELL DISTRIBUTION WIDTH 15.1 % (11.7-14.4); WHITE BLOOD COUNT 6.23 x10e3/uL (4.8-10.8)
[2024-03-01] MEDS: SODIUM CHLORIDE 0.9% 1000ML 1,000 ML IV STA ×2 (15:40→15:57)
[2024-03-01] MEDS ORDERED: IOPAMIDOL 370 MG/ML 100 ML INFUS..BTL INJ ONE (15:48)
[2024-03-01 16:01] LABS: ALBUMIN 2.5 g/dL (3.5-5.0); ALBUMIN/GLOBULIN RATIO 0.5 (0.8-2.0); ANION GAP 15.2 mmol/L (8-16); BILIRUBIN,TOTAL 0.6 mg/dL (0.2-1.2); CALCIUM 8.9 mg/dL (8.4-10.2); CREATININE, SERUM 1.77 mg/dL (0.57-1.11); POTASSIUM 4.2 mmol/L (3.5-5.1); TOTAL PROTEIN 7.1 g/dL (6.5-8.1)
[2024-03-01 16:02] LABS: INR 1.21; PROTHROMBIN TIME 15.9 seconds (11.9-14.5)
[2024-03-01] MEDS: ONDANSETRON HCL INJ 2MG/ML 2ML 2 MG/ML VIAL IV STA (16:02)
[2024-03-01 16:03] LABS: PARTIAL THROMBOPLASTIN TIME 44.6 seconds (23.8-35.5)
[2024-03-01 16:16] LABS: MAGNESIUM 1.8 MG/DL (1.3-2.1)
[2024-03-01 16:23] LABS: TROPONIN I 0.023 ng/mL (0-0.300)
[2024-03-01] MEDS ORDERED: ONDANSETRON HCL INJ 2MG/ML 2ML 2 MG/ML VIAL IV PRN (17:00)
[2024-03-01 17:16] LABS: BILIRUBIN,URINE NEGATIVE (NEGATIVE); CLARITY,URINE SL CLOUDY (CLEAR); COLOR,URINE YELLOW (YELLOW); GLUCOSE, URINE NEGATIVE (NEGATIVE); KETONES,URINE TRACE (NEGATIVE); LEUKOCYTE ESTERASE ,URINE NEGATIVE (NEGATIVE); NITRITE,URINE POSITIVE (NEGATIVE); PH,URINE 5.5 (5 - 7); PROTEIN,URINE DIPSTICK 2+ (NEGATIVE); URINE UROBILINOGEN 1 mg/dL (0.2 - 1)
[2024-03-01 17:23] LABS: BACTERIA,URINE MANY /HPF; EPITHELIAL CELLS,URINE MANY /LPF; MUCUS,URINE FEW (RARE); TRANSITIONAL EPI CELLS,URINE MODERATE
[2024-03-01] MEDS: NOREPINEPHRINE 8 MG/D5W 250 ML 250 ML IV SCH (18:31)
[2024-03-01 20:55] LABS: FERRITIN 340.61 ng/mL (4.63-204.00)
[2024-03-01] MEDS: Vancomycin IV 1 GM in SODIUM CHLORIDE 0.9% 250ML 250 ML IV ONE (21:26)
[2024-03-02] VITALS (71 sets, daily range): BP systolic 80–130; BP diastolic 46–86; PULSE 48–120; RESP 14–32; TEMP 97.8–98.3; O2SAT 93–100
[2024-03-02 00:17] LABS: TROPONIN I 0.021 ng/mL (0-0.300)
[2024-03-02] MEDS: LEVOTHYROXINE SODIUM 50 MCG TAB PO SCH (05:18)
[2024-03-02 06:51] LABS: BASOPHILS % 0.9 % (0.0-1.0); EOSINOPHILS % 0.2 % (0.0-6.0); HEMATOCRIT 28.2 % (34.2-44.1); HEMOGLOBIN 8.7 g/dL (12.0-16.0); LYMPHOCYTES # (AUTO) 0.7 (1.0-3.2); LYMPHOCYTES % 15.3 % (18.0-39.1); MEAN CORPUSCULAR HEMOGLOBIN 31.4 pg (28-32); MEAN CORPUSCULAR HGB CONC 30.9 g/dL (31-35); MEAN CORPUSCULAR VOLUME 101.8 fL (81-99); MONOCYTES # (AUTO) 0.5 (0.2-0.8); MONOCYTES % 11.4 % (4.4-11.3); NEUTROPHILS # (AUTO) 3.1 (2.1-6.9); NEUTROPHILS % 71.5 % (38.7-80.0); PLATELET COUNT 144 x10e3/uL (140-360); RED BLOOD COUNT 2.77 x10e6/uL (3.6-5.1); RED CELL DISTRIBUTION WIDTH 15.5 % (11.7-14.4); WHITE BLOOD COUNT 4.39 x10e3/uL (4.8-10.8)
[2024-03-02 07:32] LABS: ALBUMIN 2.1 g/dL (3.5-5.0); ALBUMIN/GLOBULIN RATIO 0.6 (0.8-2.0); ANION GAP 14.5 mmol/L (8-16); BILIRUBIN,TOTAL 0.7 mg/dL (0.2-1.2); CALCIUM 8.1 mg/dL (8.4-10.2); CREATININE, SERUM 1.49 mg/dL (0.57-1.11); POTASSIUM 4.5 mmol/L (3.5-5.1); TOTAL PROTEIN 5.9 g/dL (6.5-8.1)
[2024-03-02 07:52] LABS: TROPONIN I 0.023 ng/mL (0-0.300)
[2024-03-02] MEDS ORDERED: ALBUTEROL/IPRATROPIUM 3 ML NEB NEB PRN (08:15)
[2024-03-02] MEDS ORDERED: Vancomycin IV 1 GM in SODIUM CHLORIDE 0.9% 250ML 250 ML IV SCH (08:15)
[2024-03-02 09:05] LABS: BAND NEUTROPHILS % (MANUAL) 8 %; LYMPHOCYTES % (MANUAL) 11 % (19-48); METAMYELOCYTES % (MANUAL) 1 % (0-0); MONOCYTES % (MANUAL) 6 % (3.4-9.0); MYELOCYTES % (MANUAL) 1 % (0-0); NEUTROPHILS % (MANUAL) 71 % (40-74); PLATELET ESTIMATE SLIGHTLY DECREASED; PLATELET MORPHOLOGY COMMENT NORMAL; RBC MORPHOLOGY COMMENT NORMAL; REACTIVE LYMPHOCYTES 2
[2024-03-02] MEDS: MONTELUKAST SODIUM 10 MG TAB PO SCH (09:12)
[2024-03-02] MEDS: SENNA-S TABLET PO SCH (09:12)
[2024-03-02] MEDS: Vancomycin IV 1 GM in SODIUM CHLORIDE 0.9% 250ML 250 ML IV SCH (09:13)
[2024-03-02] MEDS: DEXTROSE 5%/0.9% SOD CHL 1,000 ML IV SCH (11:13)
[2024-03-02] MEDS: ALBUTEROL/IPRATROPIUM 3 ML NEB NEB SCH (13:32)
[2024-03-02 15:36] LABS: TROPONIN I 0.017 ng/mL (0-0.300)
[2024-03-02] MEDS: LIDOCAINE 4% PATCH TP SCH (16:22)
[2024-03-02] MEDS: IBUPROFEN 200 MG TAB PO ONE (16:22)
[2024-03-02] MEDS: ACETAMINOPHEN 325 MG TAB PO PRN (16:23)
[2024-03-03] VITALS (37 sets, daily range): BP systolic 90–124; BP diastolic 51–73; PULSE 92–107; RESP 15–31; TEMP 97.5–98.8; O2SAT 91–100
[2024-03-03 06:48] LABS: BASOPHILS % 0.5 % (0.0-1.0); EOSINOPHILS % 0.9 % (0.0-6.0); HEMATOCRIT 27.6 % (34.2-44.1); HEMOGLOBIN 8.3 g/dL (12.0-16.0); LYMPHOCYTES # (AUTO) 0.5 (1.0-3.2); LYMPHOCYTES % 12.4 % (18.0-39.1); MEAN CORPUSCULAR HEMOGLOBIN 30.6 pg (28-32); MEAN CORPUSCULAR HGB CONC 30.1 g/dL (31-35); MEAN CORPUSCULAR VOLUME 101.8 fL (81-99); MONOCYTES # (AUTO) 0.5 (0.2-0.8); MONOCYTES % 10.6 % (4.4-11.3); NEUTROPHILS # (AUTO) 3.2 (2.1-6.9); NEUTROPHILS % 74.4 % (38.7-80.0); PLATELET COUNT 133 x10e3/uL (140-360); RED BLOOD COUNT 2.71 x10e6/uL (3.6-5.1); RED CELL DISTRIBUTION WIDTH 15.9 % (11.7-14.4); WHITE BLOOD COUNT 4.26 x10e3/uL (4.8-10.8)
[2024-03-03 06:57] LABS: ANION GAP 11.8 mmol/L (8-16); CALCIUM 8.3 mg/dL (8.4-10.2); CREATININE, SERUM 1.3 mg/dL (0.57-1.11); POTASSIUM 3.8 mmol/L (3.5-5.1)
[2024-03-03 08:41] LABS: BAND NEUTROPHILS % (MANUAL) 1 %; EOSINOPHILS % (MANUAL) 1 % (0-7); LYMPHOCYTES % (MANUAL) 12 % (19-48); MONOCYTES % (MANUAL) 10 % (3.4-9.0); NEUTROPHILS % (MANUAL) 74 % (40-74); REACTIVE LYMPHOCYTES 2
[2024-03-03 08:42] LABS: PLATELET ESTIMATE SLIGHTLY DECREASED; PLATELET MORPHOLOGY COMMENT NORMAL; RBC MORPHOLOGY COMMENT NORMAL
[2024-03-03] MEDS: METOPROLOL TARTRATE 25 MG TAB PO SCH (09:00)
[2024-03-03] MEDS: GUAIFENESIN/DEXTROMETHORPHAN LIQD 5 ML UDC PO PRN (09:17)
[2024-03-03] MEDS: AMITRIPTYLINE HCL 25 MG TAB PO SCH (10:52)
[2024-03-03] MEDS: NYSTATIN SUSPENSION 5 ML UDC PO SCH (10:52)
[2024-03-03] MEDS: MUPIROCIN 2% OINT 22 GM TUBE TOP SCH (16:44)
[2024-03-04] VITALS (34 sets, daily range): BP systolic 96–125; BP diastolic 51–71; PULSE 27–118; RESP 13–27; TEMP 97.8–100.1; O2SAT 85–100
[2024-03-04 06:06] LABS: BASOPHILS % 0.6 % (0.0-1.0); EOSINOPHILS % 0.8 % (0.0-6.0); HEMATOCRIT 27.2 % (34.2-44.1); HEMOGLOBIN 8.2 g/dL (12.0-16.0); LYMPHOCYTES # (AUTO) 1.1 (1.0-3.2); LYMPHOCYTES % 22.3 % (18.0-39.1); MEAN CORPUSCULAR HEMOGLOBIN 30.9 pg (28-32); MEAN CORPUSCULAR HGB CONC 30.1 g/dL (31-35); MEAN CORPUSCULAR VOLUME 102.6 fL (81-99); MONOCYTES # (AUTO) 0.5 (0.2-0.8); MONOCYTES % 10.6 % (4.4-11.3); NEUTROPHILS % 64.2 % (38.7-80.0); PLATELET COUNT 137 x10e3/uL (140-360); RED BLOOD COUNT 2.65 x10e6/uL (3.6-5.1); RED CELL DISTRIBUTION WIDTH 15.8 % (11.7-14.4); WHITE BLOOD COUNT 4.71 x10e3/uL (4.8-10.8)
[2024-03-04 06:33] LABS: ALBUMIN 1.8 g/dL (3.5-5.0); ALBUMIN/GLOBULIN RATIO 0.5 (0.8-2.0); BILIRUBIN,TOTAL 0.4 mg/dL (0.2-1.2); CALCIUM 8.3 mg/dL (8.4-10.2); CREATININE, SERUM 1.21 mg/dL (0.57-1.11); TOTAL PROTEIN 5.5 g/dL (6.5-8.1)
[2024-03-04 10:01] LABS: LYMPHOCYTES % (MANUAL) 22 % (19-48); MONOCYTES % (MANUAL) 4 % (3.4-9.0); NEUTROPHILS % (MANUAL) 74 % (40-74)
[2024-03-04 10:02] LABS: HYPOCHROMASIA SLIGHT; PLATELET ESTIMATE ADEQUATE; PLATELET MORPHOLOGY COMMENT NORMAL; RBC MORPHOLOGY COMMENT ABNORMAL
[2024-03-04] MEDS: CEFEPIME 2 GM in SODIUM CHLORIDE 0.9% 100 ML IV SCH (10:21)
[2024-03-04] MEDS: ACETAMINOPHEN 325 MG TAB PO PRN (20:04)
[2024-03-05] VITALS (10 sets, daily range): BP systolic 112–139; BP diastolic 63–76; PULSE 99–110; RESP 17–23; TEMP 97.5–98; O2SAT 95–100
[2024-03-05 06:55] LABS: BASOPHILS % 0.5 % (0.0-1.0); EOSINOPHILS # (AUTO) 0.1 (0.0-0.4); EOSINOPHILS % 1.3 % (0.0-6.0); HEMATOCRIT 27.8 % (34.2-44.1); HEMOGLOBIN 8.4 g/dL (12.0-16.0); LYMPHOCYTES # (AUTO) 0.8 (1.0-3.2); LYMPHOCYTES % 22.5 % (18.0-39.1); MEAN CORPUSCULAR HEMOGLOBIN 30.5 pg (28-32); MEAN CORPUSCULAR HGB CONC 30.2 g/dL (31-35); MEAN CORPUSCULAR VOLUME 101.1 fL (81-99); MONOCYTES # (AUTO) 0.4 (0.2-0.8); MONOCYTES % 11.2 % (4.4-11.3); NEUTROPHILS # (AUTO) 2.3 (2.1-6.9); NEUTROPHILS % 61.3 % (38.7-80.0); PLATELET COUNT 135 x10e3/uL (140-360); RED BLOOD COUNT 2.75 x10e6/uL (3.6-5.1); RED CELL DISTRIBUTION WIDTH 16.3 % (11.7-14.4); WHITE BLOOD COUNT 3.74 x10e3/uL (4.8-10.8)
[2024-03-05 07:23] LABS: ALBUMIN 1.8 g/dL (3.5-5.0); ALBUMIN/GLOBULIN RATIO 0.5 (0.8-2.0); ANION GAP 11.8 mmol/L (8-16); BILIRUBIN,TOTAL 0.4 mg/dL (0.2-1.2); CALCIUM 8.6 mg/dL (8.4-10.2); CREATININE, SERUM 1.18 mg/dL (0.57-1.11); POTASSIUM 3.8 mmol/L (3.5-5.1); TOTAL PROTEIN 5.8 g/dL (6.5-8.1)
[2024-03-05] MEDS: METOPROLOL TARTRATE 25 MG TAB PO SCH (12:23)
[2024-03-05 14:14] LABS: ABG HCO3 21 mmol/L (22-26); ABG PCO2 44 mmHg (35-45); ABG PH 7.29 (7.35-7.45); ABG PO2 54 mmHg (80-105); ABG TCO2 22
[2024-03-05] MEDS: CITRIC ACID/SODIUM CITRATE 30 ML UDC PO SCH (16:25)
[2024-03-05] MEDS: ENOXAPARIN SOD INJ 40 MG/0.4 ML SYR SC SCH (17:28)
[2024-03-05] MEDS: BISACODYL 10 MG SUPP PR ONE ×2 (18:13)
[2024-03-05] MEDS: AMITRIPTYLINE HCL 25 MG TAB PO SCH (22:00)
[2024-03-06] VITALS (21 sets, daily range): BP systolic 110–144; BP diastolic 57–97; PULSE 100–116; RESP 17–27; TEMP 98.1–98.3; O2SAT 85–100
[2024-03-06 07:47] LABS: BASOPHILS % 0.3 % (0.0-1.0); EOSINOPHILS # (AUTO) 0.1 (0.0-0.4); EOSINOPHILS % 1.6 % (0.0-6.0); HEMATOCRIT 27.8 % (34.2-44.1); HEMOGLOBIN 8.4 g/dL (12.0-16.0); LYMPHOCYTES # (AUTO) 1.1 (1.0-3.2); LYMPHOCYTES % 30.2 % (18.0-39.1); MEAN CORPUSCULAR HEMOGLOBIN 30.7 pg (28-32); MEAN CORPUSCULAR HGB CONC 30.2 g/dL (31-35); MEAN CORPUSCULAR VOLUME 101.5 fL (81-99); MONOCYTES # (AUTO) 0.4 (0.2-0.8); MONOCYTES % 10.4 % (4.4-11.3); NEUTROPHILS # (AUTO) 1.9 (2.1-6.9); NEUTROPHILS % 52.3 % (38.7-80.0); PLATELET COUNT 126 x10e3/uL (140-360); RED BLOOD COUNT 2.74 x10e6/uL (3.6-5.1); RED CELL DISTRIBUTION WIDTH 16.3 % (11.7-14.4); WHITE BLOOD COUNT 3.67 x10e3/uL (4.8-10.8)
[2024-03-06 07:53] LABS: ALBUMIN 1.7 g/dL (3.5-5.0); ALBUMIN/GLOBULIN RATIO 0.4 (0.8-2.0); ANION GAP 10.6 mmol/L (8-16); BILIRUBIN,TOTAL 0.4 mg/dL (0.2-1.2); CALCIUM 8.3 mg/dL (8.4-10.2); CREATININE, SERUM 1.23 mg/dL (0.57-1.11); POTASSIUM 3.6 mmol/L (3.5-5.1); TOTAL PROTEIN 5.6 g/dL (6.5-8.1)
[2024-03-06] MEDS: CEFTRIAXONE 2 GM in SODIUM CHLORIDE 0.9% 100 ML IV SCH (08:20)
[2024-03-06 10:42] LABS: BAND NEUTROPHILS % (MANUAL) 6 %; EOSINOPHILS % (MANUAL) 1 % (0-7); LYMPHOCYTES % (MANUAL) 18 % (19-48); METAMYELOCYTES % (MANUAL) 1 % (0-0); MONOCYTES % (MANUAL) 12 % (3.4-9.0); NEUTROPHILS % (MANUAL) 62 % (40-74)
[2024-03-06 10:43] LABS: HYPOCHROMASIA MODERATE; MICROCYTOSIS SLIGHT; PLATELET ESTIMATE SLIGHTLY DECREASED; PLATELET MORPHOLOGY COMMENT NORMAL
[2024-03-06] MEDS: FUROSEMIDE INJ 10 MG/ML 2 ML VIAL IV ONE (13:11)
[2024-03-06] MEDS: IRON SUCROSE 100 MG in SODIUM CHLORIDE 0.9% 100 ML IV SCH (13:11)
[2024-03-06] MEDS: ALTEPLASE RECOMBINANT 2 MG/2 ML VIAL IV PRN (13:20)
[2024-03-07] VITALS (29 sets, daily range): BP systolic 115–136; BP diastolic 60–79; PULSE 102–123; RESP 17–30; TEMP 98–98.4; O2SAT 87–100
[2024-03-07 06:34] LABS: BASOPHILS % 0.2 % (0.0-1.0); EOSINOPHILS # (AUTO) 0.1 (0.0-0.4); EOSINOPHILS % 1.7 % (0.0-6.0); HEMATOCRIT 28.8 % (34.2-44.1); HEMOGLOBIN 8.6 g/dL (12.0-16.0); LYMPHOCYTES # (AUTO) 1.3 (1.0-3.2); LYMPHOCYTES % 30.1 % (18.0-39.1); MEAN CORPUSCULAR HEMOGLOBIN 30.2 pg (28-32); MEAN CORPUSCULAR HGB CONC 29.9 g/dL (31-35); MEAN CORPUSCULAR VOLUME 101.1 fL (81-99); MONOCYTES # (AUTO) 0.4 (0.2-0.8); MONOCYTES % 8.6 % (4.4-11.3); NEUTROPHILS # (AUTO) 2.2 (2.1-6.9); NEUTROPHILS % 53.4 % (38.7-80.0); PLATELET COUNT 146 x10e3/uL (140-360); RED BLOOD COUNT 2.85 x10e6/uL (3.6-5.1); RED CELL DISTRIBUTION WIDTH 16.4 % (11.7-14.4); WHITE BLOOD COUNT 4.19 x10e3/uL (4.8-10.8)
[2024-03-07 07:51] LABS: ANION GAP 12.6 mmol/L (8-16); CALCIUM 8.2 mg/dL (8.4-10.2); CREATININE, SERUM 1.19 mg/dL (0.57-1.11); POTASSIUM 3.6 mmol/L (3.5-5.1)
[2024-03-07 08:30] LABS: EOSINOPHILS % (MANUAL) 2 % (0-7); LYMPHOCYTES % (MANUAL) 16 % (19-48); MONOCYTES % (MANUAL) 10 % (3.4-9.0); MYELOCYTES % (MANUAL) 1 % (0-0); NEUTROPHILS % (MANUAL) 71 % (40-74); PLATELET ESTIMATE SLIGHTLY DECREASED; PLATELET MORPHOLOGY COMMENT NORMAL; RBC MORPHOLOGY COMMENT NORMAL
[2024-03-07] MEDS: FUROSEMIDE 20 MG TAB PO SCH (11:34)
[2024-03-07 15:00] LABS: ANION GAP 10.7 mmol/L (8-16); CALCIUM 8.5 mg/dL (8.4-10.2); CREATININE, SERUM 1.23 mg/dL (0.57-1.11); POTASSIUM 3.7 mmol/L (3.5-5.1)
[2024-03-08] VITALS (14 sets, daily range): BP systolic 103–129; BP diastolic 56–76; PULSE 99–119; RESP 17–25; TEMP 97.9–98.4; O2SAT 98–100
[2024-03-08 06:52] LABS: BASOPHILS % 0.4 % (0.0-1.0); EOSINOPHILS # (AUTO) 0.1 (0.0-0.4); EOSINOPHILS % 1.9 % (0.0-6.0); HEMATOCRIT 27.2 % (34.2-44.1); HEMOGLOBIN 8.3 g/dL (12.0-16.0); LYMPHOCYTES % 38.3 % (18.0-39.1); MEAN CORPUSCULAR HEMOGLOBIN 30.6 pg (28-32); MEAN CORPUSCULAR HGB CONC 30.5 g/dL (31-35); MEAN CORPUSCULAR VOLUME 100.4 fL (81-99); MONOCYTES # (AUTO) 0.5 (0.2-0.8); MONOCYTES % 8.8 % (4.4-11.3); NEUTROPHILS # (AUTO) 2.5 (2.1-6.9); NEUTROPHILS % 47.9 % (38.7-80.0); PLATELET COUNT 158 x10e3/uL (140-360); RED BLOOD COUNT 2.71 x10e6/uL (3.6-5.1); RED CELL DISTRIBUTION WIDTH 16.1 % (11.7-14.4); WHITE BLOOD COUNT 5.14 x10e3/uL (4.8-10.8)
[2024-03-08 07:19] LABS: ALBUMIN 1.7 g/dL (3.5-5.0); ALBUMIN/GLOBULIN RATIO 0.5 (0.8-2.0); ANION GAP 11.3 mmol/L (8-16); BILIRUBIN,TOTAL 0.3 mg/dL (0.2-1.2); CALCIUM 8.1 mg/dL (8.4-10.2); CREATININE, SERUM 1.09 mg/dL (0.57-1.11); TOTAL PROTEIN 5.4 g/dL (6.5-8.1)
[2024-03-08 07:21] LABS: POTASSIUM 3.3 mmol/L (3.5-5.1)
[2024-03-08] MEDS: POTASSIUM CHLORIDE 20 MEQ TAB CR PO ONE (09:29)
[2024-03-08] MEDS: POTASSIUM CHLORIDE 20MEQ/100ML 100 ML IV ONE (09:30)
[2024-03-08] MEDS ORDERED: SODIUM CHLORIDE 0.9% 100 ML ONE (09:36)
[2024-03-08 10:34] LABS: BAND NEUTROPHILS % (MANUAL) 1 %; EOSINOPHILS % (MANUAL) 1 % (0-7); LYMPHOCYTES % (MANUAL) 23 % (19-48); MONOCYTES % (MANUAL) 5 % (3.4-9.0); NEUTROPHILS % (MANUAL) 70 % (40-74)
[2024-03-08 10:35] LABS: PLATELET ESTIMATE ADEQUATE; PLATELET MORPHOLOGY COMMENT NORMAL
== END 2024-03-08 19:50 | DRG 871 ==
LOC: ER 15:02 → ERHOLD 17:06 → ICU 19:41
PROVIDERS: ADMIT Family Medicine Adult Medicine; ATTEND Family Medicine Adult Medicine
PROC: 3E0333Z Introduction of Anti-inflammatory into Peripheral Vein, Percutaneous Approach (ICD-10-PCS; principal; 2024-03-01)
PROC: 06HY33Z Insertion of Infusion Device into Lower Vein, Percutaneous Approach (ICD-10-PCS; 2024-03-01)
PROC: 02HV33Z Insertion of Infusion Device into Superior Vena Cava, Percutaneous Approach (ICD-10-PCS; 2024-03-01)
PROC: 3E033XZ Introduction of Vasopressor into Peripheral Vein, Percutaneous Approach (ICD-10-PCS; 2024-03-01)
PROC: 4A033R1 Measurement of Arterial Saturation, Peripheral, Percutaneous Approach (ICD-10-PCS; 2024-03-05)
PROC: 5A09357 Assistance with Respiratory Ventilation, Less than 24 Consecutive Hours, Continuous Positive Airway Pressure (ICD-10-PCS; 2024-03-05)
DX: A41.50 Gram-negative sepsis, unspecified (principal); I13.0 Hypertensive heart and chronic kidney disease with heart failure and stage 1 through stage 4 chronic kidney disease, or unspecified chronic kidney disease; I50.33 Acute on chronic diastolic (congestive) heart failure; R65.21 Severe sepsis with septic shock; J69.0 Pneumonitis due to inhalation of food and vomit; J47.0 Bronchiectasis with acute lower respiratory infection; D62 Acute posthemorrhagic anemia; N39.0 Urinary tract infection, site not specified; C82.9A Follicular lymphoma, unspecified, in remission; E87.1 Hypo-osmolality and hyponatremia; N17.9 Acute kidney failure, unspecified; J44.0 Chronic obstructive pulmonary disease with (acute) lower respiratory infection; K59.00 Constipation, unspecified; D50.9 Iron deficiency anemia, unspecified; N18.31 Chronic kidney disease, stage 3a; E03.9 Hypothyroidism, unspecified; Z11.52 Encounter for screening for COVID-19; I48.91 Unspecified atrial fibrillation; R54 Age-related physical debility; I83.90 Asymptomatic varicose veins of unspecified lower extremity; M19.90 Unspecified osteoarthritis, unspecified site; Z79.82 Long term (current) use of aspirin; Z79.890 Hormone replacement therapy; Z90.49 Acquired absence of other specified parts of digestive tract; Z90.711 Acquired absence of uterus with remaining cervical stump; Z88.5 Allergy status to narcotic agent; Z95.818 Presence of other cardiac implants and grafts; Z82.49 Family history of ischemic heart disease and other diseases of the circulatory system
CPT/HCPCS: 36415; 36569; 36600; 70450; 71045; 71250; 74176; 80048; 80053; 80202; 81001; 82550; 82607; 82728; 82746; 82805; 83518; 83540; 83605; 83690; 83735; 83880; 84443; 84466; 84484; 85007; 85025; 85027; 85610; 85730; 86850; 86900; 87040; 87070; 87086; 87116; 87186; 87205; 87206; 87400; 87420; 87449; 87899; 93005; 94660; 94799; 99252; 99284; J0692; J0696; J1650; J1756; J1940; J2405; J2470; J2543; J2997; J3480; J7030; J7042; J7050; Q9967; U0002

== ENCOUNTER → 2024-04-19 | Outpatient (REF) | payer MEDICARE ==
[~2024-04-19] MED LIST changes: +IOPAMIDOL 370 MG/ML 100 ML INFUS..BTL INJ ONE; +SODIUM CHLORIDE 0.9% 500ML 500 ML ONE
[2024-04-19 13:28] LABS: CREATININE, SERUM 1.43 mg/dL (0.57-1.11)
== END ==
LOC: CT 12:41
PROVIDERS: ATTEND Internal Medicine Gastroenterology
DX: R94.8 Abnormal results of function studies of other organs and systems (principal); R63.4 Abnormal weight loss
CPT/HCPCS: 36415; 74177; 82565; 84520; 96360; J7040; Q9967